=== PATIENT | female | born 1975 | race Caucasian/White ===

== ENCOUNTER 2016-11-14 11:53 | Observation (INO) ==
--- NOTE | 2016-11-14 11:58 | Emergency Department Note ---
Disposition Clinical Impression: Acute asthma exacerbation Disposition: Admitted As Inpatient Condition: Fair General Adult HPI - General Chief complaint: ED Shortness of Breath/Dyspnea Stated complaint: RINA, cough Time Seen by Provider: 11/14/16 11:57 - Related Data Home Medications Medication Instructions Recorded Confirmed Albuterol Neb [Proventil Neb] 2.5 mg IH QID 09/09/15 11/14/16 Albuterol Sulfate [Albuterol 2 puff IH Q4HR 09/09/15 11/14/16 Inhaler] Azelastine 0.1% Nasal [place] 1 spray NS BID 09/09/15 11/14/16 [Astelin] Bupropion HCl [Wellbutrin Xl] 150 mg PO QAM 09/09/15 11/14/16 Cetirizine HCl [Zyrtec] 10 mg PO HS 09/09/15 11/14/16 ClonazePAM [Klonopin] 0.5 mg PO 5XD PRN 09/09/15 11/14/16 Diltiazem HCl [Diltiazem 24Hr Cd] 120 mg PO QPM 09/09/15 11/14/16 Docusate [Colace] 100 mg PO QPM PRN 09/09/15 11/14/16 FLUoxetine HCl [Prozac] 80 mg PO QAM 09/09/15 11/14/16 Ferrous Sulfate 325 mg PO QPM 09/09/15 11/14/16 Fluticasone Propionate Nasal 50 mcg NS BID 09/09/15 11/14/16 [Flonase] Fluticasone/Salmeterol [Advair Hfa 2 puff IH BID 09/09/15 11/14/16 115-21 Mcg Inhaler] Furosemide [Lasix] 20 mg PO QAM 09/09/15 11/14/16 Indomethacin [Indocin] 50 mg PO TIDWM 09/09/15 11/14/16 Lisinopril [Zestril] 20 mg PO QAM 09/09/15 11/14/16 Montelukast [Singulair] 10 mg PO QPM 09/09/15 11/14/16 Tizanidine HCl [Zanaflex] 2 mg PO Q12H PRN 09/09/15 11/14/16 Valacyclovir [Valtrex] 500 mg PO QPM 09/09/15 11/14/16 Topiramate [Topamax] 50 mg PO BID 02/14/16 11/14/16 Pregabalin [Lyrica] 150 mg PO HS 05/13/16 11/14/16 SUMAtriptan Succinate [Imitrex] 100 mg PO AD PRN 05/13/16 11/14/16 l-Norgest/E.estradiol-E.estrad 1 tab PO DAILY 05/13/16 11/14/16 [Ashlyna 0.15-0.03-0.01 mg Tab] Ascorbic Acid [Vitamin C] 500 mg PO DAILY 11/14/16 11/14/16 Budesonide [Uceris] 9 mg PO DAILY 11/14/16 11/14/16 Cholecalciferol (Vitamin D3) 1,000 unit PO DAILY 11/14/16 11/14/16 [Vitamin D3] Magnesium Oxide [Mag-Ox] 400 mg PO BID 11/14/16 11/14/16 Metformin HCl [Metformin HCl ER] 500 mg PO BID 11/14/16 11/14/16 Pregabalin [Lyrica] 150 mg PO DAILY 11/14/16 11/14/16 Previous Rx's Medication Instructions Recorded Omeprazole [PriLOSEC] 40 mg PO DAILY #30 capsule. 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 - Social History Smoking Status: Never smoker Smokeless Tobacco Status: No Alcohol use: Reports: none Drug use: Reports: none Course Vital Signs Temperature 98.8 F 11/14/16 11:56 Pulse Rate 91 11/14/16 11:56 Respiratory Rate 20 11/14/16 11:56 Blood Pressure 137/87 11/14/16 11:56 O2 Sat by Pulse Oximetry 99 11/14/16 11:56 Temperature 98.8 F 11/14/16 11:56 Pulse Rate 101 11/14/16 14:00 Respiratory Rate 18 11/14/16 15:29 Blood Pressure 136/77 11/14/16 15:29 O2 Sat by Pulse Oximetry 97 11/14/16 14:00 Oxygen Delivery Oxygen Delivery Room Air Medical Decision Making - Lab Data Result diagrams: 11/14/16 13:02 11/14/16 13:02 Lab Results 11/14/16 11/14/16 11/14/16 Range/Units 12:16 12:30 13:02 WBC 16.6 H (4.3-11.1) K/mcL RBC 4.36 (3.82-4.97) M/mcL Hgb 13.5 (11.5-15.4) g/dL Hct 41.4 (35.3-44.9) % MCV 95.0 (83.0-100.0) fL MCH 31.0 (28.0-33.3) pg MCHC 32.6 (31.6-35.5) g/dL RDW 13.2 (11.5-14.5) % Plt Count 367 (140-400) K/mcL MPV 10.8 (9.4-12.4) fL Immature Gran % 0.4 (0-4) % Seg Neutrophils % 62.4 % Lymphocytes % 30.1 % Monocytes % 6.2 % Eosinophils % 0.5 % Basophils % 0.4 % Neutrophils # 10.3 H (1.6-8.9) K/mcL Lymphocytes # 5.0 H (0.6-4.6) K/mcL Monocytes # 1.0 (0.0-1.3) K/mcL Eosinophils # 0.1 (0.0-0.6) K/mcL Basophils # 0.1 (0.0-0.2) K/mcL Immature Plt Fraction 6.6 H (1.1-6.1) % ABG pH 7.47 H (7.32-7.45) pH Units ABG pCO2 28 L (35-45) mmHg ABG pO2 75 L (85-104) mmHg ABG HCO3 20.4 L (21-27) mEQ/L ABG Total CO2 21.3 (20-26) mEq/L ABG O2 Saturation 96 (95-98) % ABG Base Excess -2.0 (-2.0 to 3.0) mEq/L Blood Gas Modality RA Inspired O2 21 % Sodium (136-145) mEq/L Potassium (3.5-4.5) mEq/L Chloride (98-109) mEq/L Carbon Dioxide (19-29) mEq/L BUN (7-20) mg/dL Creatinine (0.57-1.11) mg/dL Est GFR ( Amer) (> 60) Est GFR (Non-Af Amer) (> 60) BUN/Creatinine Ratio (6-26) Glucose (70-99) mg/dL POC Glucose 79 (58-89) Calculated Osmolality (280-300) Calcium (8.6-10.8) mg/dL Urine Color (Yellow) Urine Clarity (Clear) Urine pH (5.0-8.0) pH Units Ur Specific [place] (1.010-1.025) Urine Protein (Neg-Trace) mg/dL Urine Glucose (UA) (Normal) mg/dL Urine Ketones (Negative) mg/dL Urine Blood (Negative) Urine Nitrite (Negative) Urine Bilirubin (Negative) Urine Urobilinogen (Normal) mg/dL Ur Leukocyte Esterase (Negative) Urine Microscopic RBC (0-3) per hpf Urine Microscopic WBC (0-3) per hpf Ur Squamous Epith Cells (None-Few) per lpf Urine Bacteria (None-Few) per hpf Hyaline Casts (None-Few) per lpf Ur Culture Indicated? (NO) 11/14/16 11/14/16 Range/Units 13:02 13:45 WBC (4.3-11.1) K/mcL RBC (3.82-4.97) M/mcL Hgb (11.5-15.4) g/dL Hct (35.3-44.9) % MCV (83.0-100.0) fL MCH (28.0-33.3) pg MCHC (31.6-35.5) g/dL RDW (11.5-14.5) % Plt Count (140-400) K/mcL MPV (9.4-12.4) fL Immature Gran % (0-4) % Seg Neutrophils % % Lymphocytes % % Monocytes % % Eosinophils % % Basophils % % Neutrophils # (1.6-8.9) K/mcL Lymphocytes # (0.6-4.6) K/mcL Monocytes # (0.0-1.3) K/mcL Eosinophils # (0.0-0.6) K/mcL Basophils # (0.0-0.2) K/mcL Immature Plt Fraction (1.1-6.1) % ABG pH (7.32-7.45) pH Units ABG pCO2 (35-45) mmHg ABG pO2 (85-104) mmHg ABG HCO3 (21-27) mEQ/L ABG Total CO2 (20-26) mEq/L ABG O2 Saturation (95-98) % ABG Base Excess (-2.0 to 3.0) mEq/L Blood Gas Modality Inspired O2 % Sodium 136 (136-145) mEq/L Potassium 3.6 (3.5-4.5) mEq/L Chloride 105 (98-109) mEq/L Carbon Dioxide 21 (19-29) mEq/L BUN 25 H (7-20) mg/dL Creatinine 1.06 (0.57-1.11) mg/dL Est GFR ( Amer) > 60 (> 60) Est GFR (Non-Af Amer) 57 L (> 60) BUN/Creatinine Ratio 24 (6-26) Glucose 72 (70-99) mg/dL POC Glucose (58-89) Calculated Osmolality 285 (280-300) Calcium 8.5 L (8.6-10.8) mg/dL Urine Color Yellow (Yellow) Urine Clarity Cloudy A (Clear) Urine pH 6.0 (5.0-8.0) pH Units Ur Specific [place] 1.027 H (1.010-1.025) Urine Protein Negative (Neg-Trace) mg/dL Urine Glucose (UA) Normal (Normal) mg/dL Urine Ketones 15 H (Negative) mg/dL Urine Blood Moderate H (Negative) Urine Nitrite Negative (Negative) Urine Bilirubin Negative (Negative) Urine Urobilinogen Normal (Normal) mg/dL Ur Leukocyte Esterase Small H (Negative) Urine Microscopic RBC 0-3 (0-3) per hpf Urine Microscopic WBC 5-15 H (0-3) per hpf Ur Squamous Epith Cells Many H (None-Few) per lpf Urine Bacteria None Seen (None-Few) per hpf Hyaline Casts None Seen (None-Few) per lpf Ur Culture Indicated? YES A (NO) Attestation Statement - Attestation Attestation: I examined this patient and my medical decision-making was reviewed with the VOCAL TEACHER/PA/Advanced Practice Nurse/Resident Physician. I agree with the documented findings, disposition and treatment plan as described except to the extent set forth below. [id number] time provided Patient presents with cough and dyspnea. She presents via EMS from home. No evidence of dyspnea or tachypnea on exam. Patient was recently seen in the emergency department approximately one week ago for similar symptoms
[2016-11-14] MEDS ORDERED: Ipratropium/Albuterol Neb 3 ML IH ONE ×2 (12:12→14:00)
--- NOTE | 2016-11-14 12:14 | Emergency Department Note ---
Disposition Clinical Impression: Acute asthma exacerbation Qualifiers: Asthma severity: unspecified severity Qualified Code(s): J45.901 - Unspecified asthma with (acute) exacerbation Disposition: Admitted As Inpatient Condition: Fair Referrals: Daniel Whitney Jr, MD [Primary Care Provider] - Forms: ED Satisfaction Letter Time of Disposition: 14:06 SOB HPI - General Chief Complaint: ED Shortness of Breath/Dyspnea Stated Complaint: RINA, cough Time Seen by Provider: 11/14/16 11:57 Source: patient Limitations: no limitations Nursing Notes Reviewed: Yes Vital Signs Reviewed: Yes - History of Present Illness Ms. Flanagan is a 41 year old female with history of diabetes, Crohns disease, arthritis, asthma, and chronic bronchitis who presents to the ED via EMS with complaint of troubles breathing. Patient reports increasing troubles catching her breath, some lower rib pain with deep inspiration, cough, and generalized fatigue that began about 2 weeks ago. Patient was seen on 11/08/16 in the ED and diagnosed with COPD and was sent home with steroids and antibiotics. Patient reports using steroids and inhalers without significant relief of symptoms. Patient unable to determine if worsening of breathing with exertion as she is very fatigued and staying in bed. Patient reports associated cough and chills. Reports coughing up increasing amounts of clear to light yellow mucus. Patient denies fevers, sweats, headaches, lightheadedness, abdominal pain, changes in bowels or bladder, weakness, or loss of sensation. Patient reports no history of smoking. Pt Subjective Complaint: shortness of breath, cough Onset (ago): day(s) Context: recent illness - Related Data Home Medications Medication Instructions Recorded Confirmed Albuterol Neb [Proventil Neb] 2.5 mg IH QID 09/09/15 05/19/16 Albuterol Sulfate [Albuterol 2 puff IH Q4HR 09/09/15 05/19/16 Inhaler] Azelastine 0.1% Nasal [place] 1 spray NS BID 09/09/15 05/19/16 [Astelin] Bupropion HCl [Wellbutrin Xl] 300 mg PO QAM 09/09/15 05/19/16 Cetirizine HCl [Zyrtec] 10 mg PO HS 09/09/15 05/19/16 ClonazePAM [Klonopin] 0.5 mg PO 5XD PRN 09/09/15 05/19/16 Diltiazem HCl [Diltiazem 24Hr Cd] 120 mg PO QPM 09/09/15 05/19/16 Docusate [Colace] 100 mg PO QPM PRN 09/09/15 05/19/16 FLUoxetine HCl [Prozac] 80 mg PO QAM 09/09/15 05/19/16 Ferrous Sulfate 325 mg PO QPM 09/09/15 05/19/16 Fluticasone Propionate Nasal 1 spray NS BID 09/09/15 05/19/16 [Flonase] Fluticasone/Salmeterol [Advair Hfa 2 puff IH BID 09/09/15 05/19/16 115-21 Mcg Inhaler] Furosemide [Lasix] 20 mg PO QAM 09/09/15 05/19/16 Indomethacin [Indocin] 50 mg PO TIDWM 09/09/15 05/19/16 Ketotifen Fumarate [Zaditor] 1 drop OP BID PRN 09/09/15 05/19/16 Lisinopril [Zestril] 20 mg PO QAM 09/09/15 05/19/16 Montelukast [Singulair] 10 mg PO QPM 09/09/15 05/19/16 Tizanidine HCl [Zanaflex] 2 mg PO Q12H PRN 09/09/15 05/19/16 Trazodone HCl [TraZODone] 100 mg PO 09/09/15 05/19/16 Valacyclovir [Valtrex] 500 mg PO QPM 09/09/15 05/19/16 Topiramate [Topamax] 50 mg PO BID 02/14/16 05/19/16 Pregabalin [Lyrica] 150 mg PO 05/13/16 05/19/16 SUMAtriptan Succinate [Imitrex] 100 mg PO AD PRN 05/13/16 05/19/16 l-Norgest/E.estradiol-E.estrad 1 each PO DAILY 05/13/16 05/19/16 [Ashlyna 0.15-0.03-0.01 mg Tab] Zolpidem Tartrate [Edluar] 10 mg SL 05/14/16 05/19/16 Previous Rx's Medication Instructions Recorded Omeprazole [PriLOSEC] 40 mg PO DAILY #30 capsule. 04/22/16 Ondansetron ODT [Zofran ODT] 4 mg SL Q6HR PRN #14 tab.rapdis 05/09/16 Sucralfate [Carafate] 1 gm PO QIDAC #20 tablet 05/09/16 Ciprofloxacin [Cipro] 500 mg PO BID 5 Days 05/15/16 Dicyclomine [Bentyl] 10 mg PO QID PRN #20 capsule 05/15/16 MetroNIDAZOLE [Flagyl] 500 mg PO TID 5 Days 05/15/16 Cyclobenzaprine [Flexeril] 10 mg PO TID PRN #90 tablet 05/20/16 OxyCODONE Immed Rel [Roxicodone 5 5 mg PO Q4HR #60 tablet 05/20/16 MG] Cephalexin 500 mg PO BID #14 tablet 10/10/16 OxyCODONE/APAP 5/325 [Percocet 1 each PO Q6HR PRN #6 tablet 10/10/16 5/325] Benzonatate [Tessalon] 100 mg PO TID PRN #21 capsule 11/08/16 Cefdinir [Omnicef] 300 mg PO BID #14 capsule 11/08/16 PredniSONE 40 mg PO DAILY #3 tablet 11/08/16 Allergies Allergy/AdvReac Type Severity Reaction Status Date / Time gabapentin Allergy Swelling Verified 11/14/16 12:10 of Lip/Tongue/Throat Constitutional: Reports: as per HPI, chills. Denies: fever, weakness, night sweats Eyes: Reports: as per HPI ENT ED: Reports: as per HPI Cardiovascular: Reports: as per HPI. Denies: chest pain Respiratory: Reports: as per HPI, cough, dyspnea. Denies: wheezes Gastrointestinal: Reports: as per HPI. Denies: abdominal pain, nausea, vomiting , diarrhea, constipation Genitourinary: Reports: as per HPI. Denies: dysuria, frequency Musculoskeletal: Reports: as per HPI. Denies: back pain, neck pain Integumentary: Reports: as per HPI. Denies: rash Neurological: Reports: as per HPI. 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 Absent: lymphadenopathy - Chest Chest inspection: Present: normal inspection, symmetric chest wall rise, tenderness (with palpation) - Respiratory Respiratory exam: Present: normal lung sounds bilaterally, wheezes, prolonged expiratory phase - Cardiovascular Cardiovascular exam: Present: regular rate, normal rhythm, normal heart sounds, +S1, +S2 - Abdominal Exam Abdominal exam: Present: soft, Non-Tender, normal bowel sounds - Extremities Exam Extremities exam: Present: normal inspection, full ROM, normal capillary refill. Absent: tenderness, pedal edema, joint swelling, calf tenderness - Back Exam Back exam: Present: normal inspection, full ROM. Absent: tenderness - Neurological Exam Neurological exam: Present: alert, oriented X3 - Psychiatric Psychiatric exam: Present: normal affect, normal mood - Skin Skin exam: Present: warm, dry, intact, normal color. Absent: rash, cyanosis, diaphoresis, erythema, pallor Course Course Narrative: Based on history and exam, suspect continued troubles breathing secondary to chronic bronchitis and uncontrolled with at home inhaled medications. Will get ABG due to increased somnolence, possible hypercapnia. - Reevaluation(s) Reevaluation #1: Patient reports continued chest tightness reproducible pain with palpation and troubles breathing. Patient reports no improvement after duoneb treatment. Time: 13:59 - Consultations Consultation #1: Spoke with Dr. Odom, will accept patient for acute asthma exacerbation vs chronic bronchitis. Time: 14:05 Vital Signs Temperature 98.8 F 11/14/16 11:56 Pulse Rate 91 11/14/16 11:56 Respiratory Rate 20 11/14/16 11:56 Blood Pressure 137/87 11/14/16 11:56 O2 Sat by Pulse Oximetry 99 11/14/16 11:56 Temperature 98.8 F 11/14/16 11:56 Pulse Rate 91 11/14/16 11:56 Respiratory Rate 16 11/14/16 12:34 Blood Pressure 137/87 11/14/16 11:56 O2 Sat by Pulse Oximetry 98 11/14/16 12:34 Oxygen Delivery Oxygen Delivery Room Air Shortness of Breath/Dyspnea - MDM Narrative Medical decision making narrative: Patient complaints of worsening troubles breathing and cough with associated somnolence. Labs reveal respiratory alkalosis. No improvement with duoneb treatments. Leukocytosis. Likely acute asthma exacerbation vs acute exacerbation of chronic bronchitis. Will admit for further evaluation and treatment. - Lab Data Lab results reviewed: Yes I reviewed the patient's lab results. Result diagrams: 11/14/16 13:02 11/14/16 13:02 Lab Results 11/14/16 11/14/16 11/14/16 Range/Units 12:16 12:30 13:02 WBC 16.6 H (4.3-11.1) K/mcL RBC 4.36 (3.82-4.97) M/mcL Hgb 13.5 (11.5-15.4) g/dL Hct 41.4 (35.3-44.9) % MCV 95.0 (83.0-100.0) fL MCH 31.0 (28.0-33.3) pg MCHC 32.6 (31.6-35.5) g/dL RDW 13.2 (11.5-14.5) % Plt Count 367 (140-400) K/mcL MPV 10.8 (9.4-12.4) fL Immature Gran % 0.4 (0-4) % Seg Neutrophils % 62.4 % Lymphocytes % 30.1 % Monocytes % 6.2 % Eosinophils % 0.5 % Basophils % 0.4 % Neutrophils # 10.3 H (1.6-8.9) K/mcL Lymphocytes # 5.0 H (0.6-4.6) K/mcL Monocytes # 1.0 (0.0-1.3) K/mcL Eosinophils # 0.1 (0.0-0.6) K/mcL Basophils # 0.1 (0.0-0.2) K/mcL Immature Plt Fraction 6.6 H (1.1-6.1) % ABG pH 7.47 H (7.32-7.45) pH Units ABG pCO2 28 L (35-45) mmHg ABG pO2 75 L (85-104) mmHg ABG HCO3 20.4 L (21-27) mEQ/L ABG Total CO2 21.3 (20-26) mEq/L ABG O2 Saturation 96 (95-98) % ABG Base Excess -2.0 (-2.0 to 3.0) mEq/L Blood Gas Modality RA Inspired O2 21 % Sodium (136-145) mEq/L Potassium (3.5-4.5) mEq/L Chloride (98-109) mEq/L Carbon Dioxide (19-29) mEq/L BUN (7-20) mg/dL Creatinine (0.57-1.11) mg/dL Est GFR ( Amer) (> 60) Est GFR (Non-Af Amer) (> 60) BUN/Creatinine Ratio (6-26) Glucose (70-99) mg/dL POC Glucose 79 (58-89) Calculated Osmolality (280-300) Calcium (8.6-10.8) mg/dL 11/14/16 Range/Units 13:02 WBC (4.3-11.1) K/mcL RBC (3.82-4.97) M/mcL Hgb (11.5-15.4) g/dL Hct (35.3-44.9) % MCV (83.0-100.0) fL MCH (28.0-33.3) pg MCHC (31.6-35.5) g/dL RDW (11.5-14.5) % Plt Count (140-400) K/mcL MPV (9.4-12.4) fL Immature Gran % (0-4) % Seg Neutrophils % % Lymphocytes % % Monocytes % % Eosinophils % % Basophils % % Neutrophils # (1.6-8.9) K/mcL Lymphocytes # (0.6-4.6) K/mcL Monocytes # (0.0-1.3) K/mcL Eosinophils # (0.0-0.6) K/mcL Basophils # (0.0-0.2) K/mcL Immature Plt Fraction (1.1-6.1) % ABG pH (7.32-7.45) pH Units ABG pCO2 (35-45) mmHg ABG pO2 (85-104) mmHg ABG HCO3 (21-27) mEQ/L ABG Total CO2 (20-26) mEq/L ABG O2 Saturation (95-98) % ABG Base Excess (-2.0 to 3.0) mEq/L Blood Gas Modality Inspired O2 % Sodium 136 (136-145) mEq/L Potassium 3.6 (3.5-4.5) mEq/L Chloride 105 (98-109) mEq/L Carbon Dioxide 21 (19-29) mEq/L BUN 25 H (7-20) mg/dL Creatinine 1.06 (0.57-1.11) mg/dL Est GFR ( Amer) > 60 (> 60) Est GFR (Non-Af Amer) 57 L (> 60) BUN/Creatinine Ratio 24 (6-26) Glucose 72 (70-99) mg/dL POC Glucose (58-89) Calculated Osmolality 285 (280-300) Calcium 8.5 L (8.6-10.8) mg/dL - Radiology Data Radiology results reviewed: Yes I reviewed the patient's radiology results. Chest X-Ray 11/14/16 12:12 IMPRESSION: No acute cardiopulmonary process. D/ / 11/14/2016 13:02:16 Scott Shay MD / Gisel Banda Interpreting Provider: Scott Shay MD - EKG Data EKG attestation: Yes I reviewed and interpreted this EKG. EKG results narrative: Normal sinus rhythm, rate 79bpm, pr int 144ms, QRS dur 90 ms, QT/QTc 382/417, P- R-T axes [address] elevations or depressions or t wave inversions. No changes from prior comparison.
[2016-11-14 12:43] LABS: ABG HCO3 20.4 mEQ/L (21-27); ABG Oxygen Saturation 96 % (95-98); ABG PCO2 28 mmHg (35-45); ABG PH 7.47 pH Units (7.32-7.45); ABG PO2 75 mmHg (85-104); ABG TCO2 21.3 mEq/L (20-26); Blood Gas FiO2 21 %
[2016-11-14 13:08] LABS: Basophils # 0.1 K/mcL (0.0-0.2); Basophils % 0.4 %; Eosinophils # 0.1 K/mcL (0.0-0.6); Eosinophils % 0.5 %; Hematocrit 41.4 % (35.3-44.9); Hemoglobin 13.5 g/dL (11.5-15.4); Immature Granulocytes % 0.4 % (0-4); Immature Platelets 6.6 % (1.1-6.1); Lymphocytes % 30.1 %; Mean Corpuscular HGB Conc 32.6 g/dL (31.6-35.5); Mean Platelet Volume 10.8 fL (9.4-12.4); Monocytes % 6.2 %; Neutrophils # 10.3 K/mcL (1.6-8.9); Platelet Count 367 K/mcL (140-400); Red Blood Count 4.36 M/mcL (3.82-4.97); Red Cell Distribution Width 13.2 % (11.5-14.5); Segmented Neutrophils % 62.4 %
[2016-11-14 13:19] LABS: BUN/Creatinine Ratio 24 (6-26); Blood Urea Nitrogen 25 mg/dL (7-20); Calcium 8.5 mg/dL (8.6-10.8); Carbon Dioxide 21 mEq/L (19-29); Chloride 105 mEq/L (98-109); Glucose 72 mg/dL (70-99); Osmolality,Calculated 285 (280-300); Potassium 3.6 mEq/L (3.5-4.5); Sodium 136 mEq/L (136-145); eGFR For African Americans > 60 (> 60); eGFR For Non-African Americans 57 (> 60)
[2016-11-14 14:10] LABS: Bilirubin,Urine Negative (Negative); Blood,Urine Moderate (Negative); Clarity,Urine Cloudy (Clear); Color,Urine Yellow (Yellow); Glucose,Urine (UA) Normal (Normal); Ketones,Urine 15 mg/dL (Negative); Leukocyte Esterase,Urine Small (Negative); Nitrite,Urine Negative (Negative); Protein,Urine Negative (Neg-Trace); Specific Gravity,Urine 1.027 (1.010-1.025); Urobilinogen,Urine Normal (Normal)
[2016-11-14 14:13] LABS: Bacteria,Urine None Seen per hpf (None-Few); Hyaline Casts,Urine None Seen per lpf (None-Few); RBC,Urine 0-3 per hpf (0-3); Squamous Epithelial Cell,Urine Many per lpf (None-Few)
[2016-11-14] MEDS ORDERED: methylPREDNISolone 125 MG/2 ML VIAL IVP ONE (14:23)
--- NOTE | 2016-11-14 15:49 | Internal Med History&Physical ---
Date of Encounter: 11/14/16 Time of Encounter: 14:45 Internal Medicine - H&P: HPI Chief complaint: SOB Admitted From: Emergency Dept Plans for Post Hospital Care: Home History of present illness: Ms. Flanagan is a 41 year old female with medical history significant for asthma, and chronic bronchitis DM2 and morbid obesity presents with SOB, cough, chest wall pain and generalized fatigu of 2 weeks duration. She was evaluated in the ED a couple of days ago and discharged on antiboitics and a course of prednisone , she has not really improved. SOB and chest pain even at rest. Cough is intermittently productive of clear to light yellow sputum. She reports lower rib pain that is worse with deep breathing and coughing. She denies fevers, sweats, headaches, hemoptysis, lightheadedness, abdominal pain, GI, neurological or urinary symptoms. No leg swelling or leg cramps. No long distance travel. No sick contacts. No history of smoking, though she is diagnosed with chronic bronchitis. No PND, no orthopnea or leg swelling. No recent surgery or period of prolonged immobilization. No historry of CHF, DVT or PE. She is FULL CODE as per discussion, she nominates her , Aldo Flanagan ([phone]) as her NOK/POA. ROS: A 10 point ROS was performed. see HPI. Positives and relevant negatives are detailed, system-symptom not mention assumed negative unless otherwise stated. Family history: Father: CAD/NC s/p CABG, HTN, mother: lung abd breast cancer, HTN. Vital Signs Temperature 98.8 F 11/14/16 11:56 Pulse Rate 91 11/14/16 11:56 Respiratory Rate 20 11/14/16 11:56 Blood Pressure 137/87 11/14/16 11:56 O2 Sat by Pulse Oximetry 99 11/14/16 11:56 Temperature 98.8 F 11/14/16 11:56 Pulse Rate 91 11/14/16 11:56 Respiratory Rate 16 11/14/16 12:34 Blood Pressure 137/87 11/14/16 11:56 O2 Sat by Pulse Oximetry 98 11/14/16 12:34 Not in distress, not ill or toxic looking. lethargic. Not pale, anicteric, afebrile, acyanotic. Moist mucosa, no JVD HEENT: No JVD, no cervical lymphadenopathy, Chest : CTAB Heart: RRR, HS1/2, no m/r/g. Abdomen: soft, non-tender, no guarding, no rebound, no masses, BS+ : No flank tenderness, no CVA tenderness, no suprapubic tenderness. REGIONAL PLANNER: AAO x 3, no focal neurological deficits. Skin: no active skin lesion Extremities: No pedal edema, normal pedal pulses, no calf tenderness. Lab Results 11/14/16 11/14/16 11/14/16 Range/Units 12:16 12:30 13:02 WBC 16.6 H (4.3-11.1) K/mcL RBC 4.36 (3.82-4.97) M/mcL Hgb 13.5 (11.5-15.4) g/dL Hct 41.4 (35.3-44.9) % MCV 95.0 (83.0-100.0) fL MCH 31.0 (28.0-33.3) pg MCHC 32.6 (31.6-35.5) g/dL RDW 13.2 (11.5-14.5) % Plt Count 367 (140-400) K/mcL MPV 10.8 (9.4-12.4) fL Immature Gran % 0.4 (0-4) % Seg Neutrophils % 62.4 % Lymphocytes % 30.1 % Monocytes % 6.2 % Eosinophils % 0.5 % Basophils % 0.4 % Neutrophils # 10.3 H (1.6-8.9) K/mcL Lymphocytes # 5.0 H (0.6-4.6) K/mcL Monocytes # 1.0 (0.0-1.3) K/mcL Eosinophils # 0.1 (0.0-0.6) K/mcL Basophils # 0.1 (0.0-0.2) K/mcL Immature Plt Fraction 6.6 H (1.1-6.1) % ABG pH 7.47 H (7.32-7.45) pH Units ABG pCO2 28 L (35-45) mmHg ABG pO2 75 L (85-104) mmHg ABG HCO3 20.4 L (21-27) mEQ/L ABG Total CO2 21.3 (20-26) mEq/L ABG O2 Saturation 96 (95-98) % ABG Base Excess -2.0 (-2.0 to 3.0) mEq/L Blood Gas Modality RA Inspired O2 21 % Sodium (136-145) mEq/L Potassium (3.5-4.5) mEq/L Chloride (98-109) mEq/L Carbon Dioxide (19-29) mEq/L BUN (7-20) mg/dL Creatinine (0.57-1.11) mg/dL Est GFR ( Amer) (> 60) Est GFR (Non-Af Amer) (> 60) BUN/Creatinine Ratio (6-26) Glucose (70-99) mg/dL POC Glucose 79 (58-89) Calculated Osmolality (280-300) Calcium (8.6-10.8) mg/dL 11/14/16 Range/Units 13:02 WBC (4.3-11.1) K/mcL RBC (3.82-4.97) M/mcL Hgb (11.5-15.4) g/dL Hct (35.3-44.9) % MCV (83.0-100.0) fL MCH (28.0-33.3) pg MCHC (31.6-35.5) g/dL RDW (11.5-14.5) % Plt Count (140-400) K/mcL MPV (9.4-12.4) fL Immature Gran % (0-4) % Seg Neutrophils % % Lymphocytes % % Monocytes % % Eosinophils % % Basophils % % Neutrophils # (1.6-8.9) K/mcL Lymphocytes # (0.6-4.6) K/mcL Monocytes # (0.0-1.3) K/mcL Eosinophils # (0.0-0.6) K/mcL Basophils # (0.0-0.2) K/mcL Immature Plt Fraction (1.1-6.1) % ABG pH (7.32-7.45) pH Units ABG pCO2 (35-45) mmHg ABG pO2 (85-104) mmHg ABG HCO3 (21-27) mEQ/L ABG Total CO2 (20-26) mEq/L ABG O2 Saturation (95-98) % ABG Base Excess (-2.0 to 3.0) mEq/L Blood Gas Modality Inspired O2 % Sodium 136 (136-145) mEq/L Potassium 3.6 (3.5-4.5) mEq/L Chloride 105 (98-109) mEq/L Carbon Dioxide 21 (19-29) mEq/L BUN 25 H (7-20) mg/dL Creatinine 1.06 (0.57-1.11) mg/dL Est GFR ( Amer) > 60 (> 60) Est GFR (Non-Af Amer) 57 L (> 60) BUN/Creatinine Ratio 24 (6-26) Glucose 72 (70-99) mg/dL POC Glucose (58-89) Calculated Osmolality 285 (280-300) Calcium 8.5 L (8.6-10.8) mg/dL Chest X-Ray 11/14/16 12:12 No acute cardiopulmonary process. EKG: NSR: normal axis and interval, no ST-T segment or T wave anomaly. No change from prior. IMP SOB despite a clear chest on auscultation, though history suggest acute on chronic bronchitis, I will evaluate for CHF and pulmonary embolism. Failed out- patient treatment. Chronic morbidities COPD Asthma Morbid obesity DM2 Arthritis Croh's disease/colitis, without acute flare. PLAN Admit Duoneb QIDR, albuterol nebs Q4H PRN IV Solumedrol 60 MG q8h Symbicort 160/4.5 2 puffs BID No indication for antiboitics at this time VQ scan and 2D ECHO Insulin, moderate dose sliding scale QAC/HS Continue other medications of chronic morbidities Lovenox 40 mg SC for DVT prophylaxis Omeprazole 20mg po QD for GI prophylaxis I discussed my assessment with the patient, father was at bedside, they verbalized understanding and are agreeable to admission, having failed out- patient treatment. Past Med Surg Social Fam HX - Past Medical History Medical history: arthritis, asthma, COPD (CHRONIC bronchitis), diabetes, GERD, hypertension, migraine, other (Crohns' colitis, obesity) Psychiatric history: depression - Past Surgical History Surgical History: knee replacement, other (carpal tunnel, ulver tunnel surgery, back surgery) - Social History Smoking Status: Never smoker Smokeless Tobacco Status: No Alcohol use: none Drug use: none - Family History Father Hx Family Cardiac Disorders: Yes (CABG at age 54) Maternal Hx Family Cancer: Yes (Maternal aunt colon cancer age 30) Internal Medicine - H&P: Meds Albuterol Neb [Proventil Neb] 2.5 mg IH QID 09/09/15 [History] Albuterol Sulfate [Albuterol Inhaler] 2 puff IH Q4HR 09/09/15 [History] Azelastine 0.1% Nasal [place] [Astelin] 1 spray NS BID 09/09/15 [History] Bupropion HCl [Wellbutrin Xl] 150 mg PO QAM 09/09/15 [History] Cetirizine HCl [Zyrtec] 10 mg PO HS 09/09/15 [History] ClonazePAM [Klonopin] 0.5 mg PO 5XD PRN 09/09/15 [History] Diltiazem HCl [Diltiazem 24Hr Cd] 120 mg PO QPM 09/09/15 [History] Docusate [Colace] 100 mg PO QPM PRN 09/09/15 [History] FLUoxetine HCl [Prozac] 80 mg PO QAM 09/09/15 [History] Ferrous Sulfate 325 mg PO QPM 09/09/15 [History] Fluticasone Propionate Nasal [Flonase] 50 mcg NS BID 09/09/15 [History] Fluticasone/Salmeterol [Advair Hfa 115-21 Mcg Inhaler] 2 puff IH BID 09/09/15 [ History] Furosemide [Lasix] 20 mg PO QAM 09/09/15 [History] Indomethacin [Indocin] 50 mg PO TIDWM 09/09/15 [History] Lisinopril [Zestril] 20 mg PO QAM 09/09/15 [History] Montelukast [Singulair] 10 mg PO QPM 09/09/15 [History] Tizanidine HCl [Zanaflex] 2 mg PO Q12H PRN 09/09/15 [History] Valacyclovir [Valtrex] 500 mg PO QPM 09/09/15 [History] Topiramate [Topamax] 50 mg PO BID 02/14/16 [History] Omeprazole [PriLOSEC] 40 mg PO DAILY #30 capsule. 04/22/16 [Rx] Ondansetron ODT [Zofran ODT] 4 mg SL Q6HR PRN #14 tab.laurel 08/28/16 [Rx] Sucralfate [Carafate] 1 gm PO QIDAC #20 tablet 05/09/16 [Rx] Pregabalin [Lyrica] 150 mg PO HS 05/13/16 [History] SUMAtriptan Succinate [Imitrex] 100 mg PO AD PRN 05/13/16 [History] l-Norgest/E.estradiol-E.estrad [Ashlyna 0.15-0.03-0.01 mg Tab] 1 tab PO DAILY [History] Dicyclomine [Bentyl] 10 mg PO QID PRN #20 capsule 05/15/16 [Rx] Ascorbic Acid [Vitamin C] 500 mg PO DAILY 11/14/16 [History] Budesonide [Uceris] 9 mg PO DAILY 11/14/16 [History] Cholecalciferol (Vitamin D3) [Vitamin D3] 1,000 unit PO DAILY 11/14/16 [History] Magnesium Oxide [Mag-Ox] 400 mg PO BID 11/14/16 [History] Metformin HCl [Metformin HCl ER] 500 mg PO BID 11/14/16 [History] Pregabalin [Lyrica] 150 mg PO DAILY 11/14/16 [History] Allergies gabapentin Allergy (Verified 11/14/16 12:10) Swelling of Lip/Tongue/Throat All Systems PM: A 10-system review of systems was performed and is negative for pertinent findings except as documented above in the HPI. - Constitutional Vitals: Temp Pulse Resp BP Pulse Ox 98.8 F 101 18 136/77 97 11/14/16 11:56 11/14/16 14:00 11/14/16 15:29 11/14/16 15:29 11/14/16 14:00 Internal Med - H&P Results - Labs CBC & Chem 7: 11/14/16 13:02 11/14/16 13:02
[2016-11-14] MEDS ORDERED: Albuterol 2.5 MG/3 ML NEBULIZER IH PRN (15:57)
[2016-11-14] MEDS ORDERED: Acetaminophen 325 MG TABLET PO PRN (16:01)
[2016-11-14] MEDS ORDERED: Naloxone 0.4 MG/ML INJ IVP PRN (16:01)
[2016-11-14] MEDS ORDERED: *HR* Dextrose 50 % in Water (Syg) 50 ML SYRINGE IVP PRN (16:06)
[2016-11-14] MEDS ORDERED: Dextrose Gel 15 GM PO PRN ×2 (16:06)
[2016-11-14] MEDS ORDERED: D5% in Water 1,000 ML IV PRN (16:06)
[2016-11-14] MEDS: Ipratropium/Albuterol Neb 3 ML IH SCH (16:56)
[2016-11-14] MEDS: Insulin LISPRO 300 UNITS/3 ML VIAL SQ SCH (17:31)
[2016-11-14] MEDS: methylPREDNISolone 125 MG/2 ML VIAL IVP SCH (17:37)
[2016-11-14] MEDS ORDERED: Insulin LISPRO 300 UNITS/3 ML VIAL SQ SCH (21:00)
[2016-11-15] MEDS: Budesonide/Formoterol 80/4.5 MDI IH SCH ×2 (00:01→10:30)
[2016-11-15] MEDS: Ipratropium/Albuterol Neb 3 ML IH SCH ×3 (00:01→10:30)
[2016-11-15] MEDS: methylPREDNISolone 125 MG/2 ML VIAL IVP SCH ×2 (00:10→07:46)
[2016-11-15] MEDS ORDERED: Ketorolac 30 MG/ML VIAL IVP PRN (04:11)
[2016-11-15] MEDS ORDERED: Ketorolac 30 MG/ML VIAL IVP ONE (04:11)
[2016-11-15] MEDS ORDERED: *HR* Enoxaparin 40 MG/0.4 ML SYRINGE SQ SCH (06:00)
[2016-11-15] MEDS: Insulin LISPRO 300 UNITS/3 ML VIAL SQ SCH ×2 (07:46→12:01)
[2016-11-15] MEDS ORDERED: Perflutren Lipid Microsphere 1.3 ML in 0.9 % Sodium Chloride 8.7 ML IVP ONE (08:38)
[2016-11-15] MEDS ORDERED: Perflutren Lipid Microsphere 2 ML VIAL ONE (08:39)
[2016-11-15] MEDS ORDERED: tiZANidine 4 MG TABLET PO PRN (09:10)
[2016-11-15] MEDS ORDERED: clonazePAM 0.5 MG TABLET PO PRN (09:10)
[2016-11-15] MEDS ORDERED: SUMAtriptan succinate 50 MG TABLET PO PRN (09:10)
[2016-11-15] MEDS ORDERED: FLUoxetine 20 MG CAPSULE PO SCH (09:15)
[2016-11-15] MEDS ORDERED: predniSONE 20 MG TABLET PO SCH (09:15)
[2016-11-15] MEDS ORDERED: Furosemide 20 MG TABLET PO SCH (09:15)
[2016-11-15] MEDS ORDERED: Pregabalin 75 MG CAPSULE PO SCH ×2 (09:15→21:00)
[2016-11-15] MEDS ORDERED: Magnesium Oxide 400 MG TABLET PO SCH (09:15)
[2016-11-15] MEDS ORDERED: BuPROPion XL (24 HR) 150 MG TABLET PO SCH (09:15)
[2016-11-15] MEDS ORDERED: E ESTRADIOL E ESTRAD PO SCH (09:15)
[2016-11-15] MEDS ORDERED: Fluticasone Propionate Nasal 50 MCG/SPRAY BOTTLE NS SCH (09:15)
[2016-11-15] MEDS ORDERED: Lisinopril 20 MG TABLET PO SCH (09:15)
[2016-11-15] MEDS ORDERED: Topiramate 25 MG TABLET PO SCH (09:15)
[2016-11-15] MEDS ORDERED: NORGEST PO SCH (09:15)
--- NOTE | 2016-11-15 09:56 | ECHO - Doppler Report ---
Echo with Imaging Enhancement Agent Name: Meagan Flanagan Date of Study: 11/15/2016 Date: 1975 Ht: 65.0 in Medical Record#: [id number] Age: 41 Wt: 307.0 lb Gender: Female BSA: 2.37 Order #: [id number] Location: [facility] Room #: 3B48 Reading Physician: Lilia Linares DO Float Operator: Marko Matos RN Ordering Physician: Mane Carrion MD Primary Physician: Daniel Whitney MD Indications: Shortness of breath Impressions: LVEF 65%. Normal left ventricular size and systolic function. There is evidence of mild diastolic dysfunction of the left ventricle. Normal right ventricular size and function. No significant valvular dysfunction. No pulmonary hypertension. Left Ventricular Wall Motion: Rest Echo Findings All wall segments showed normal motion. Findings: Study Quality * Technically adequate exam. ECG Findings * Normal sinus rhythm. Left Ventricle * Normal LV chamber size, wall thickness and function. * Mild left ventricular diastolic dysfunction. * LVEF 65%. * Definity echo contrast was used. Left Atrium * Normal left atrial size. Mitral Valve * Normal mitral valve structure. * No mitral stenosis. * Trace mitral regurgitation. Aortic Valve * Aortic valve not well visualized. * No aortic stenosis. * Trace aortic regurgitation. Tricuspid Valve * Tricuspid valve not well visualized. * No tricuspid regurgitation. * Estimated RA pressure is 3 mmHg. * Estimated RVSP is 18 mmHg. * No pulmonary hypertension. Pulmonic Valve * Pulmonic valve is not well visualized. * No pulmonic stenosis. * Trace pulmonic regurgitation. Pulmonary Artery * Pulmonary artery not well visualized. Right Ventricle * Normal right ventricular structure and function. Right Atrium * Normal right atrial size. Interatrial Septum * Interatrial septum not well evaluated. IVC * The IVC is not dilated. Pericardium * There is no pericardial effusion present. Aorta * Normally sized aortic root. History Hypertension Diabetes Family History of CAD 09/10/2015 a Previous Echo was performed. Contrast: Definity 1.3 ml in 8.7 ml of saline 2 ml. Measurements: BP: 143/ 77 2D Normal Values IVSd: 1.10 cm 0.6 - 1.0 cm LVIDd: 4.20 cm 3.7 - 5.6 cm LVPWd: 1.10 cm 0.6 - 1.1 cm LVIDs: 2.70 cm 1.5 - 3.6 cm LA: 4.00 cm 2.0 - 4.0cm %FS: 35.70 cm >25 % LVOT Diam: 2.00 cm LA volume: 66 Mitral Valve Peak E:.64 m/sec Peak A:.81 m/sec E/A Ratio:0.8 Peak E' Lat Armin:12.1 cm/s Peak E' Med Armin:9.16 cm/s E/E' Lat Ratio:5.2 E/E' Med Ratio:6.9 Aortic Valve AI pressure Half-time: 507.00 msec Tricuspid Valve TV Regurg Peak Grad: 15.00mmHg TV Regurg Peak Armin: 1.94m/sec Updated by Lilia Linares on 11/15/2016 9:51:08 AM electronically signed on 11/15/2016 9:52:30 AM with status of Final Wall Motion [place]: 1=Normal, 2=Hypokinesis, 3=Akinesis, 4=Dyskinesis, 5=Aneurysmal, 6=Hyperkinetic, X=Not Visualized (Blank)=Missing
[2016-11-15] MEDS ORDERED: Ondansetron ODT 4 MG TAB.RAPDIS SL PRN (10:57)
[2016-11-15] MEDS ORDERED: BuPROPion XL (24 HR) 150 MG TABLET PO ONE ×2 (11:30→12:45)
[2016-11-15] MEDS ORDERED: Sucralfate 1 GM TABLET PO SCH (11:30)
[2016-11-15 11:35] VITALS: BP 104/58
[2016-11-15] MEDS ORDERED: Indomethacin 25 MG CAPSULE PO SCH (12:00)
--- NOTE | 2016-11-15 13:46 | Discharge Summary ---
Date of Encounter: 11/15/16 Time of Encounter: 13:15 - Discharge Diagnosis (1) Asthma Priority: Secondary Status: Chronic Comments: Patient denied shortness of breath above her normal day of discharge. She tolerated room air well. She also denied dyspnea on exertion. Qualifiers: Asthma severity: mild intermittent Asthma complication type: uncomplicated Qualified Code(s): J45.20 - Mild intermittent asthma, uncomplicated (2) Chest pain Priority: Primary Status: Resolved Comments: patient has denied chest pain since admission other than when she is coughing. Reproducible with palpation. Chest x-ray negative. Low suspicion for ACS. (3) Abnormal urinalysis Priority: Primary Status: Ruled-out Comments: Patient denied dysuria, urine culture negative (4) Inflammatory bowel disease Priority: Secondary Status: Chronic Comments: no acute flare up. Follow-up outpatient. Patient was able to tolerate a regular diet well admitted (5) Diabetes type 2, controlled Priority: Secondary Status: Chronic Comments: Controlled with a recent A1c of 5.8%. Recommend continued follow-up outpatient Qualifiers: Diabetes mellitus complication status: without complication Diabetes mellitus mcfp insulin use: without mcfp use Qualified Code(s): E11.9 - Type 2 diabetes mellitus without complications (6) GERD (gastroesophageal reflux disease) Priority: Secondary Status: Chronic Comments: denies current sx- followup outpatient Qualifiers: Esophagitis presence: esophagitis presence not specified Qualified Code(s) : K21.9 - Gastro-esophageal reflux disease without esophagitis (7) JUAN on CPAP Priority: Secondary Status: Chronic (8) Morbid obesity with BMI of 50.0-59.9, adult Priority: Secondary Status: Chronic - Discharge Medications Prescriptions: Levofloxacin 750 mg PO DAILY #5 tablet PredniSONE 40 mg PO DAILY #10 tablet Home Medications: Albuterol Neb [Proventil Neb] 2.5 mg IH QID 09/09/15 [History] Albuterol Sulfate [Albuterol Inhaler] 2 puff IH Q4HR 09/09/15 [History] Azelastine 0.1% Nasal [place] [Astelin] 1 spray NS BID 09/09/15 [History] Bupropion HCl [Wellbutrin Xl] 450 mg PO QAM 09/09/15 [History] Cetirizine HCl [Zyrtec] 10 mg PO HS 09/09/15 [History] ClonazePAM [Klonopin] 0.5 mg PO 5XD PRN 09/09/15 [History] Diltiazem HCl [Diltiazem 24Hr Cd] 120 mg PO QPM 09/09/15 [History] Docusate [Colace] 100 mg PO QPM PRN 09/09/15 [History] FLUoxetine HCl [Prozac] 80 mg PO QAM 09/09/15 [History] Ferrous Sulfate 325 mg PO QPM 09/09/15 [History] Fluticasone Propionate Nasal [Flonase] 50 mcg NS BID 09/09/15 [History] Fluticasone/Salmeterol [Advair Hfa 115-21 Mcg Inhaler] 2 puff IH BID 09/09/15 [ History] Furosemide [Lasix] 20 mg PO QAM 09/09/15 [History] Indomethacin [Indocin] 50 mg PO TIDWM 09/09/15 [History] Lisinopril [Zestril] 20 mg PO QAM 09/09/15 [History] Montelukast [Singulair] 10 mg PO QPM 09/09/15 [History] Tizanidine HCl [Zanaflex] 2 mg PO Q12H PRN 09/09/15 [History] Valacyclovir [Valtrex] 500 mg PO QPM 09/09/15 [History] Topiramate [Topamax] 50 mg PO BID 02/14/16 [History] Omeprazole [PriLOSEC] 40 mg PO DAILY #30 capsule. 04/22/16 [Rx] Ondansetron ODT [Zofran ODT] 4 mg SL Q6HR PRN #14 tab.rapdis 05/09/16 [Rx] Sucralfate [Carafate] 1 gm PO QIDAC #20 tablet 05/09/16 [Rx] SUMAtriptan Succinate [Imitrex] 100 mg PO AD PRN 05/13/16 [History] l-Norgest/E.estradiol-E.estrad [Ashlyna 0.15-0.03-0.01 mg Tab] 1 tab PO DAILY [History] Dicyclomine [Bentyl] 10 mg PO QID PRN #20 capsule 05/15/16 [Rx] Ascorbic Acid [Vitamin C] 500 mg PO DAILY 11/14/16 [History] Budesonide [Uceris] 9 mg PO DAILY 11/14/16 [History] Cholecalciferol (Vitamin D3) [Vitamin D3] 1,000 unit PO DAILY 11/14/16 [History] Magnesium Oxide [Mag-Ox] 400 mg PO BID 11/14/16 [History] Metformin HCl [Metformin HCl ER] 500 mg PO BID 11/14/16 [History] Pregabalin [Lyrica] 150 mg PO DAILY 11/14/16 [History] Levofloxacin 750 mg PO DAILY #5 tablet 11/15/16 [Rx] PredniSONE 40 mg PO DAILY #10 tablet 11/15/16 [Rx] Allergies/Adverse Reactions: Allergies gabapentin Allergy (Verified 11/14/16 12:10) Swelling of Lip/Tongue/Throat Date of admission: 11/14/16 16:54 Primary care physician: Daniel Whitney Jr, MD Discharging clinician: Raquel Delgadillo Anticipated date of discharge: 11/15/16 - Patient Status Disposition: Home, Self-Care Condition: Good Functional capacity at discharge: independent ambulation Overall status at discharge: patient is progressing back to baseline - Discharge Instructions Follow Up With: Daniel Whitney Jr, MD [Primary Care Provider] - 11/24/16 2:30 pm Additional Instructions: Follow-up with primary care provider as scheduled - Diet and Activity Activity: increase activity as tolerated Diet: diabetic diet, low fat, low cholesterol Hospital course: Ms. Flanagan is a 41 year old female with past medical history of asthma, chronic bronchitis, diabetes, GERD, hypertension, Crohn's, morbid obesity. Patient presented to the emergency department chief complaint shortness of breath, cough , chest wall pain, and generalized fatigue 2 weeks. Patient was seen in the emergency department several days prior to this presentation for the same complaint at which time she was discharged on antibiotics and a course of prednisone without improvement. Workup in the emergency department unremarkable other than mild leukocytosis and slightly abnormal urinalysis. Chest x-ray negative. VQ scan negative for PE. Flu swabs negative. The patient was admitted to the hospitalist service for further evaluation and management. Patient denied dysuria and urine culture negative. No other signs of an acute infection, mild leukocytosis likely secondary to outpatient steroid use. Echocardiogram was unremarkable with ejection fraction of 65% and mild diastolic dysfunction. Patient was alert and oriented 3 throughout this admission. On day of discharge, she denied shortness of breath above her norm and tolerated room air well. She was also ambulatory around her room without difficulties, weakness, or lightheadedness. She was able to tolerate a regular diet while admitted. She was discharged home in stable condition with close outpatient follow-up recommended. ITS Impressions Chest X-Ray 11/14/16 12:12 IMPRESSION: No acute cardiopulmonary process. D/ / 11/14/2016 13:02:16 Scott Shay MD / Gisel Banda Interpreting Provider: Scott Shay MD Pulmonary Perfusion Imaging 11/14/16 16:29 IMPRESSION: Low Probability for Pulmonary Embolus. D/ / Ajay Schroeder MD / Ajay Schroeder MD Interpreting Provider: Ajay Schroeder MD Echo with imaging enhancement impressions: LVEF 65%. Normal left ventricle size and systolic function. There is evidence of mild diastolic dysfunction of the left ventricle. Normal left ventricular size and function. No significant valvular dysfunction. No pulmonary hypertension. - Time Spent with Patient Total time spent providing and/or coordinating discharge services: - Constitutional Vitals: Temp Pulse Resp BP Pulse Ox 98.1 F 80 20 104/58 97 11/15/16 11:31 11/15/16 11:31 11/15/16 11:31 11/15/16 11:31 11/15/16 11:31 General appearance: Present: A&O X 3, morbidly obese, pleasant, no acute distress, answers questions appropriately - Head Head exam: Present: atraumatic, normocephalic - Eye Eye exam: Present: PERRL, conjuntiva pink, sclera anicteric Pupils: Present: PERRL - Neck Neck exam general surgery: Present: supple, trachea midline. Absent: lymphadenopathy - Respiratory Respiratory exam: Present: CTAB. Absent: accessory muscle use, rales, respiratory distress, rhonchi, wheezes - Cardiovascular Cardiovascular exam: Present: RRR, +S1, +S2. Absent: diastolic murmur, gallop, rubs, systolic murmur - GI/Abdominal GI/Abdominal exam: Present: normal bowel sounds, soft, no peritoneal signs. Absent: distended, tenderness - Extremities Exam Extremities exam: Present: warm, radial pulses palpable and symetrical. Absent : calf tenderness, cyanotic, pedal edema - Neurological Exam Neurological exam: Present: alert, CN II-XII intact, normal gait, oriented X3, no focal deficits, strengths equal and symetr throughout. Absent: pronater drift, facial droop, speech deficit - Skin Skin exam: Present: dry, intact, normal color, warm
--- NOTE | 2016-11-15 16:54 | Electrocardiograph Report ---
[place] [id number] Test Date: 2016-11-14 Pat Name: Meagan Flanagan Department: 105 Room: 3B Gender: F Data Communications Analyst: : 1975 Requested By: Cabrera Newman Order Number: [id number] Reading MD: Twan Novak MD Measurements Intervals [place] Rate: 79 P: 42 ME: 144 QRS: 30 QRSD: 90 T: 39 QT: 382 QTc: 417 Interpretive Statements SINUS RHYTHM BASELINE ARTIFACT Electronically Signed On 11-15-2016 16:53:44 EST by Twan Novak MD
[2016-11-15] MEDS ORDERED: valACYclovir 500 MG TABLET PO SCH (18:00)
[2016-11-15] MEDS ORDERED: Diltiazem CD (24hr) 120 MG CAPSULE PO SCH (18:00)
[2016-11-15] MEDS ORDERED: Loratadine 10 MG TABLET PO SCH (21:00)
[2016-11-16] MEDS ORDERED: Pregabalin 75 MG CAPSULE PO SCH (09:00)
[2016-11-16] MEDS ORDERED: BuPROPion XL (24 HR) 150 MG TABLET PO SCH (09:00)
== END 2016-11-15 14:45 | disposition home or self-care (01) | DRG 141 ==
LOC: 3BNU 11:53 → EMEROO 11:53 → 3BNU 16:40
PROVIDERS: ADMIT Nurse Practitioner Family; ATTEND Nurse Practitioner Family

== ENCOUNTER 2017-04-17 15:30 | Inpatient (IN) ==
[2017-04-17] MEDS ORDERED: 0.9 % Sodium Chloride 1,000 ML IVC ONE (16:24)
[2017-04-17] MEDS ORDERED: Ondansetron 4 MG/2 ML VIAL IVP ONE (16:24)
[2017-04-17] MEDS ORDERED: *HR* HYDROmorphone 2 MG/ML SYRINGE IVP ONE (16:25)
[2017-04-17] MEDS ORDERED: methylPREDNISolone 125 MG/2 ML VIAL IVP ONE (16:26)
--- NOTE | 2017-04-17 16:29 | Emergency Department Note ---
Disposition Clinical Impression: Inflammatory bowel disease Disposition: Admitted As Inpatient Condition: Fair Instructions: Abdominal Pain (ED) Prescriptions: Ondansetron ODT [Zofran ODT] 4 mg SL Q6HR #20 tab.rapdis OxyCODONE/APAP 5/325 [Percocet 5/325 MG] 1 each PO Q6HR PRN #10 tablet PRN Reason: Pain predniSONE [PredniSONE] 60 mg PO DAILY #15 tablet Referrals: Daniel Whitney Jr, MD [Primary Care Provider] - Dede Willingham MD [Partnered Physician] - Forms: Work/School Release, ED Satisfaction Letter Time of Disposition: 17:28 Abdominal Pain HPI - General Chief Complaint: ED Abdominal Pain Stated Complaint: Crohn's Flare Up Time Seen by Provider: 04/17/17 16:24 Source: patient Mode of arrival: private vehicle Limitations: no limitations Nursing Notes Reviewed: Yes Vital Signs Reviewed: Yes - History of Present Illness HPI Narrative: 5-year-old female patient presents to the emergency department with complaint of diffuse abdominal pain, nausea, diarrhea and "I think I am having a Crohn's flareup." Patient states that she contacted her GI specialist Dr. Willingham, and was told to come to the emergency department for evaluation and possible admission. Patient was recently started on a new Crohn's medication due to cost issues with her insurance. Patient states that she has not seen any significant improvement or stabilization with this new medication but is unsure of the name. She denies any chest pain, shortness of breath, dizziness, lightheadedness. She denies any fever, chills or urinary complaints. Pt Subjective Complaint: abdominal pain Pain Severity: severe Pain Scale: 10 Quality: aching, fullness Radiation: none Migration to: no migration Improves with: nothing Worsens with: nothing Context: history of similar episodes Associated symptoms: Reports: nausea, diarrhea Treatments prior to arrival: none - Related Data Home Medications Medication Instructions Recorded Confirmed Albuterol Neb [Proventil Neb] 2.5 mg IH QID 09/09/15 11/14/16 Albuterol Sulfate [Albuterol 2 puff IH Q4HR 09/09/15 11/14/16 Inhaler] Azelastine 0.1% Nasal [place] 1 spray NS BID 09/09/15 11/14/16 [Astelin] Bupropion HCl [Wellbutrin Xl] 450 mg PO QAM 12/29/15 03/06/17 Cetirizine HCl [Zyrtec] 10 mg PO HS 09/09/15 11/14/16 Diltiazem HCl [Diltiazem 24Hr Cd] 120 mg PO QPM 09/09/15 11/14/16 Docusate [Colace] 100 mg PO QPM PRN 09/09/15 11/14/16 FLUoxetine HCl [Prozac] 80 mg PO QAM 09/09/15 11/14/16 Ferrous Sulfate 325 mg PO QPM 09/09/15 11/14/16 Fluticasone Propionate Nasal 50 mcg NS BID 09/09/15 11/14/16 [Flonase] Fluticasone/Salmeterol [Advair Hfa 2 puff IH BID 09/09/15 11/14/16 115-21 Mcg Inhaler] Furosemide [Lasix] 20 mg PO QAM 09/09/15 11/14/16 Indomethacin [Indocin] 50 mg PO TIDWM 09/09/15 11/14/16 Lisinopril [Zestril] 20 mg PO QAM 09/09/15 11/14/16 Montelukast [Singulair] 10 mg PO QPM 09/09/15 11/14/16 Tizanidine HCl [Zanaflex] 2 mg PO Q12H PRN 09/09/15 11/14/16 clonazePAM [Klonopin] 0.5 mg PO 5XD PRN 09/09/15 11/14/16 valACYclovir [Valtrex] 500 mg PO QPM 09/09/15 11/14/16 Topiramate [Topamax] 50 mg PO BID 02/14/16 11/14/16 SUMAtriptan Succinate [Imitrex] 100 mg PO AD PRN 05/13/16 11/14/16 l-Norgest/E.estradiol-E.estrad 1 tab PO DAILY 05/13/16 11/14/16 [Ashlyna 0.15-0.03-0.01 mg Tab] Ascorbic Acid [Vitamin C] 500 mg PO DAILY 11/14/16 11/14/16 Budesonide [Uceris] 9 mg PO DAILY 11/14/16 11/14/16 Cholecalciferol (Vitamin D3) 1,000 unit PO DAILY 11/14/16 11/14/16 [Vitamin D3] Magnesium Oxide [Mag-Ox] 400 mg PO BID 11/14/16 11/14/16 Metformin HCl [Metformin HCl ER] 500 mg PO BID 11/14/16 11/14/16 Pregabalin [Lyrica] 150 mg PO DAILY 11/14/16 11/14/16 Previous Rx's Medication Instructions Recorded Omeprazole [PriLOSEC] 40 mg PO DAILY #30 capsule. 04/22/16 Ondansetron ODT [Zofran ODT] 4 mg SL Q6HR PRN #14 tab.rapdis 05/09/16 Sucralfate [Carafate] 1 gm PO QIDAC #20 tablet 05/09/16 Dicyclomine [Bentyl] 10 mg PO QID PRN #20 capsule 05/15/16 levoFLOXacin [Levaquin] 750 mg PO DAILY #5 tablet 11/15/16 predniSONE [PredniSONE] 40 mg PO DAILY #10 tablet 11/15/16 OxyCODONE/APAP 5/325 [Percocet 1 each PO Q6HR PRN #8 tablet 03/10/17 5/325 MG] Ondansetron ODT [Zofran ODT] 4 mg SL Q6HR #20 tab.rapdis 04/17/17 OxyCODONE/APAP 5/325 [Percocet 1 each PO Q6HR PRN #10 tablet 04/17/17 5/325 MG] predniSONE [PredniSONE] 60 mg PO DAILY #15 tablet 04/17/17 Allergies Allergy/AdvReac Type Severity Reaction Status Date / Time gabapentin Allergy Swelling Verified 03/16/17 14:28 of Lip/Tongue/Throat ziprasidone [From Geodon] AdvReac Agitated Verified 03/16/17 14:28 All systems ED: reviewed and negative except as stated. Constitutional: Denies: fever, chills Cardiovascular: Denies: chest pain Respiratory: Denies: cough, dyspnea Gastrointestinal: Reports: abdominal pain, nausea, diarrhea. Denies: vomiting Genitourinary: Denies: urgency, dysuria, frequency Musculoskeletal: Denies: back pain, neck pain Integumentary: Denies: rash, abrasion, lesions Neurological: Denies: headache Psychiatric: Denies: anxiety, depression, suicidal thoughts, homicidal thoughts Abdominal Pain PMH - Past Medical History Medical history: Reports: arthritis, asthma, COPD, diabetes, GERD, hypertension , migraine, other Female Surgical History: Reports: Adenoidectomy, knee replacement, orthopedic, other, Tonsillectomy, other [employer] history: Reports: bilateral tubal ligation Psychiatric history: Reports: depression - Social History Smoking status: Never smoker Alcohol use: Reports: none Drug use: Reports: none Physical Exam - General Limitations: no limitations General appearance: alert, in no apparent distress - Head Head exam: atraumatic, normocephalic, normal inspection - Eye Eye exam: Present: normal appearance, PERRL - Neck Neck exam: Present: normal inspection, full ROM, trachea midline - Chest Chest inspection: Present: normal inspection, symmetric chest wall rise. Absent : tenderness - Respiratory Respiratory exam: Present: normal lung sounds bilaterally. Absent: respiratory distress - Cardiovascular Cardiovascular exam: Present: regular rate, normal rhythm, normal heart sounds - Abdominal Exam Abdominal exam: Present: soft, tenderness, normal bowel sounds. Absent: distention, guarding, rebound, rigidity Abdominal tenderness: Present: diffuse, mild - Extremities Exam Extremities exam: Present: normal inspection, full ROM - Expanded Lower Extremity Exam Gait: observed and normal - Back Exam Back exam: Present: normal inspection, full ROM. Absent: tenderness - Neurological Exam Neurological exam: Present: alert, oriented X3 - Psychiatric Psychiatric exam: Present: normal affect, normal mood - Skin Skin exam: Present: warm, dry, intact, normal color Course - Consultations Consultation #1: I discussed the patient's case with the Hospitalist, Dr. Martinez, he accepts the patient. Time: 17:58 Vital Signs Temperature 99.2 F 04/17/17 15:30 Pulse Rate 89 04/17/17 15:30 Respiratory Rate 14 04/17/17 15:30 Blood Pressure 135/76 04/17/17 15:30 O2 Sat by Pulse Oximetry 97 04/17/17 15:30 Temperature 99.2 F 04/17/17 15:30 Pulse Rate 89 04/17/17 15:30 Respiratory Rate 14 04/17/17 15:30 Blood Pressure 135/76 04/17/17 15:30 O2 Sat by Pulse Oximetry 97 04/17/17 15:30 Oxygen Delivery Oxygen Delivery Room Air Abdominal Pain - Lab Data Result diagrams: 04/17/17 16:45 04/17/17 16:45 Lab Results 04/17/17 04/17/17 04/17/17 Range/Units 16:15 16:45 16:45 WBC 13.1 H (4.3-11.1) K/mcL RBC 4.06 (3.82-4.97) M/mcL Hgb 12.5 (11.5-15.4) g/dL Hct 38.9 (35.3-44.9) % MCV 95.8 (83.0-100.0) fL MCH 30.8 (28.0-33.3) pg MCHC 32.1 (31.6-35.5) g/dL RDW 13.5 (11.5-14.5) % Plt Count 356 (140-400) K/mcL MPV 10.6 (9.4-12.4) fL Immature Gran % 0.4 (0-4) % Seg Neutrophils % 78.2 % Lymphocytes % 15.6 % Monocytes % 5.1 % Eosinophils % 0.3 % Basophils % 0.4 % Neutrophils # 10.2 H (1.6-8.9) K/mcL Lymphocytes # 2.0 (0.6-4.6) K/mcL Monocytes # 0.7 (0.0-1.3) K/mcL Eosinophils # 0.0 (0.0-0.6) K/mcL Basophils # 0.1 (0.0-0.2) K/mcL ESR (0-15) mm/hr Sodium 136 (136-145) mEq/L Potassium 4.2 (3.5-4.5) mEq/L Chloride 105 (98-109) mEq/L Carbon Dioxide 22 (19-29) mEq/L BUN 14 (7-20) mg/dL Creatinine 0.99 (0.57-1.11) mg/dL Est GFR ( Amer) > 60 (> 60) Est GFR (Non-Af Amer) > 60 (> 60) BUN/Creatinine Ratio 14 (6-26) Glucose 92 (70-99) mg/dL Calculated Osmolality 282 (280-300) Calcium 8.1 L (8.6-10.8) mg/dL Total Bilirubin 0.4 (0.2-1.2) mg/dL AST 28 (5-34) Units/L ALT 34 (0-55) Units/L Alkaline Phosphatase 52 (38-126) Units/L Troponin I (0-0.03) ng/mL Serum Total Protein 7.0 (6.0-8.3) g/dL Albumin 3.0 L (3.5-5.0) g/dL Globulin 4.0 H (2.4-3.5) g/dL Albumin/Globulin Ratio 0.8 L (1.1-2.2) Amylase 45 (25-125) Units/L Lipase 18 (8-78) Units/L Urine Color Yellow (Yellow) Urine Clarity Cloudy A (Clear) Urine pH 5.5 (5.0-8.0) pH Units Ur Specific Alexander 1.025 (1.010-1.025) Urine Protein Negative (Neg-Trace) mg/dL Urine Glucose (UA) Normal (Normal) mg/dL Urine Ketones Negative (Negative) mg/dL Urine Blood Negative (Negative) Urine Nitrite Negative (Negative) Urine Bilirubin Negative (Negative) Urine Urobilinogen Normal (Normal) mg/dL Ur Leukocyte Esterase Moderate H (Negative) Urine Microscopic RBC 3-5 H (0-3) per hpf Urine Microscopic WBC 15-30 H (0-3) per hpf Ur Squamous Epith Cells Many H (None-Few) per lpf Urine Bacteria Moderate H (None-Few) per hpf Hyaline Casts None Seen (None-Few) per lpf Ur Culture Indicated? YES A (NO) 04/17/17 04/17/17 Range/Units 16:45 16:45 WBC (4.3-11.1) K/mcL RBC (3.82-4.97) M/mcL Hgb (11.5-15.4) g/dL Hct (35.3-44.9) % MCV (83.0-100.0) fL MCH (28.0-33.3) pg MCHC (31.6-35.5) g/dL RDW (11.5-14.5) % Plt Count (140-400) K/mcL MPV (9.4-12.4) fL Immature Gran % (0-4) % Seg Neutrophils % % Lymphocytes % % Monocytes % % Eosinophils % % Basophils % % Neutrophils # (1.6-8.9) K/mcL Lymphocytes # (0.6-4.6) K/mcL Monocytes # (0.0-1.3) K/mcL Eosinophils # (0.0-0.6) K/mcL Basophils # (0.0-0.2) K/mcL ESR 104 H (0-15) mm/hr Sodium (136-145) mEq/L Potassium (3.5-4.5) mEq/L Chloride (98-109) mEq/L Carbon Dioxide (19-29) mEq/L BUN (7-20) mg/dL Creatinine (0.57-1.11) mg/dL Est GFR ( Amer) (> 60) Est GFR (Non-Af Amer) (> 60) BUN/Creatinine Ratio (6-26) Glucose (70-99) mg/dL Calculated Osmolality (280-300) Calcium (8.6-10.8) mg/dL Total Bilirubin (0.2-1.2) mg/dL AST (5-34) Units/L ALT (0-55) Units/L Alkaline Phosphatase (38-126) Units/L Troponin I 0.00 (0-0.03) ng/mL Serum Total Protein (6.0-8.3) g/dL Albumin (3.5-5.0) g/dL Globulin (2.4-3.5) g/dL Albumin/Globulin Ratio (1.1-2.2) Amylase (25-125) Units/L Lipase (8-78) Units/L Urine Color (Yellow) Urine Clarity (Clear) Urine pH (5.0-8.0) pH Units Ur Specific Alexander (1.010-1.025) Urine Protein (Neg-Trace) mg/dL Urine Glucose (UA) (Normal) mg/dL Urine Ketones (Negative) mg/dL Urine Blood (Negative) Urine Nitrite (Negative) Urine Bilirubin (Negative) Urine Urobilinogen (Normal) mg/dL Ur Leukocyte Esterase (Negative) Urine Microscopic RBC (0-3) per hpf Urine Microscopic WBC (0-3) per hpf Ur Squamous Epith Cells (None-Few) per lpf Urine Bacteria (None-Few) per hpf Hyaline Casts (None-Few) per lpf Ur Culture Indicated? (NO)
[2017-04-17 16:38] LABS: Bilirubin,Urine Negative (Negative); Blood,Urine Negative (Negative); Clarity,Urine Cloudy (Clear); Color,Urine Yellow (Yellow); Glucose,Urine (UA) Normal (Normal); Ketones,Urine Negative (Negative); Leukocyte Esterase,Urine Moderate (Negative); Nitrite,Urine Negative (Negative); PH,Urine 5.5 pH Units (5.0-8.0); Protein,Urine Negative (Neg-Trace); Specific Gravity,Urine 1.025 (1.010-1.025); Urobilinogen,Urine Normal (Normal)
[2017-04-17 16:41] LABS: Bacteria,Urine Moderate per hpf (None-Few); Hyaline Casts,Urine None Seen per lpf (None-Few); Squamous Epithelial Cell,Urine Many per lpf (None-Few); WBC,Urine 15-30 per hpf (0-3)
[2017-04-17 16:55] LABS: Basophils # 0.1 K/mcL (0.0-0.2); Basophils % 0.4 %; Eosinophils % 0.3 %; Hematocrit 38.9 % (35.3-44.9); Hemoglobin 12.5 g/dL (11.5-15.4); Immature Granulocytes % 0.4 % (0-4); Lymphocytes % 15.6 %; Mean Corpuscular HGB Conc 32.1 g/dL (31.6-35.5); Mean Corpuscular Hemoglobin 30.8 pg (28.0-33.3); Mean Corpuscular Volume 95.8 fL (83.0-100.0); Mean Platelet Volume 10.6 fL (9.4-12.4); Monocytes # 0.7 K/mcL (0.0-1.3); Monocytes % 5.1 %; Neutrophils # 10.2 K/mcL (1.6-8.9); Platelet Count 356 K/mcL (140-400); Red Blood Count 4.06 M/mcL (3.82-4.97); Red Cell Distribution Width 13.5 % (11.5-14.5); Segmented Neutrophils % 78.2 %
[2017-04-17 17:11] LABS: Alanine Aminotransferase 34 Units/L (0-55); Albumin/Globulin Ratio 0.8 (1.1-2.2); Alkaline Phosphatase 52 Units/L (38-126); Amylase 45 Units/L (25-125); Aspartate Amino Transferase 28 Units/L (5-34); BUN/Creatinine Ratio 14 (6-26); Bilirubin,Total 0.4 mg/dL (0.2-1.2); Blood Urea Nitrogen 14 mg/dL (7-20); Calcium 8.1 mg/dL (8.6-10.8); Carbon Dioxide 22 mEq/L (19-29); Chloride 105 mEq/L (98-109); Glucose 92 mg/dL (70-99); Lipase 18 Units/L (8-78); Osmolality,Calculated 282 (280-300); Potassium 4.2 mEq/L (3.5-4.5); Sodium 136 mEq/L (136-145); eGFR For African Americans > 60 (> 60); eGFR For Non-African Americans > 60 (> 60)
[2017-04-17] MEDS ORDERED: clonazePAM 1 MG TABLET PO PRN (19:48)
[2017-04-17] MEDS ORDERED: SUMAtriptan succinate 50 MG TABLET PO PRN (19:48)
[2017-04-17] MEDS ORDERED: D5% in Water 1,000 ML IVC PRN (19:56)
[2017-04-17] MEDS ORDERED: Naloxone 0.4 MG/ML INJ IVP PRN (19:56)
[2017-04-17] MEDS ORDERED: Acetaminophen 325 MG TABLET PO PRN (19:56)
[2017-04-17] MEDS ORDERED: *HR* Dextrose 50 % in Water (Syg) 50 ML SYRINGE IVP PRN (19:56)
[2017-04-17] MEDS ORDERED: Dextrose Gel 15 GM PO PRN ×2 (19:56)
[2017-04-17] MEDS ORDERED: Ipratropium/Albuterol Neb 3 ML IH PRN (20:02)
--- NOTE | 2017-04-17 20:05 | Internal Med History&Physical ---
Date of Encounter: 04/17/17 Time of Encounter: 20:02 Assessment and Plan (1) Exacerbation of Crohn's disease Current visit: Yes Status: Acute Acute Crohn's exacerbation, accompanied by hematochezia The patient will continue her new medication and presented to the hospital Continue IV fluids Continue Solu-Medrol, IV fluids, start full liquid diet, may keep nothing by mouth he worse Monitor CBC GI consulted Protonix IV for GI prophylaxis and sequential compression devices for DVT prophylaxis. Patient will be admitted as inpatient, expected to stay more than 2 midnights. Full code. Time spent on this admission 40 minutes. Qualifiers: Digestive disease complication type: without complication Qualified Code(s) : K50.90 - Crohn's disease, unspecified, without complications (2) UTI (urinary tract infection) Current visit: Yes Status: Acute Start Rocephin await urine culture final report Qualifiers: Urinary tract infection type: acute cystitis Hematuria presence: without hematuria Qualified Code(s): N30.00 - Acute cystitis without hematuria (3) COPD (chronic obstructive pulmonary disease) Current visit: Yes Status: Acute No exacerbation Qualifiers: COPD type: chronic bronchitis Chronic bronchitis type: unspecified Qualified Code(s): J42 - Unspecified chronic bronchitis (4) Asthma Current visit: No Status: Chronic Qualifiers: Asthma severity: mild intermittent Asthma complication type: uncomplicated Qualified Code(s): J45.20 - Mild intermittent asthma, uncomplicated (5) GERD (gastroesophageal reflux disease) Current visit: No Status: Chronic Qualifiers: Esophagitis presence: esophagitis presence not specified Qualified Code(s) : K21.9 - Gastro-esophageal reflux disease without esophagitis (6) JUAN on CPAP Current visit: No Status: Chronic Internal Medicine - H&P: HPI Chief complaint: Abdominal pain Admitted From: Emergency Dept History of present illness: Ms. Flanagan is a 41 year old female with a past medical history of Crohn's disease , morbid obesity, diastolic CHF, COPD not oxygen dependent, diabetes type 2 not insulin-dependent, the patient has been feeling worse for the past few days, called Dr. Willingham and he referred her to the emergency room. Patient has not been able to take her new Crohn's medication which she cannot recall. She is to take Uceris up until last month but her insurance stopped paying for it. She says she has had like 9 watery bowel movements since yesterday accompanied by his reshaping pain crampy like 10 out of 10 in her entire abdomen. But [place] is 13.1 UA shows moderate bacteria and 30 white blood cells ESR is 104 the patient was started on Solu-Medrol and Dilaudid at the emergency room. She has been complaining of nausea but has not been vomiting. Saw some blood on her stool but her white blood cell count is stable. Mild dysuria. Appears dehydrated Past Med Surg Social Fam HX - Past Medical History Medical history: arthritis, asthma, COPD (Not oxygen dependent), diabetes (Note insulin-dependent), GERD, hypertension, migraine, other (Crohn's, history of Salmonella which was resistant to ampicillin and ciprofloxacin and sulfa, asthma , depression, diastolic CHF with an ejection fraction of 65% and mild diastolic dysfunction, morbid obesity, GERD, obstructive sleep apnea uses a CPAP, migraines) Psychiatric history: depression - Past Surgical History Surgical History: knee replacement, other (Adenoidectomy, tonsillectomy, tubal ligation, carpal tunnel surgery and back surgery) - Social History Smoking Status: Never smoker Packs per day: Second hand smoking Smokeless Tobacco Status: No Alcohol use: none Drug use: none - Family History Father Hx Family Cardiac Disorders: Yes (CABG at age 54) Maternal Hx Family Cancer: Yes (Maternal aunt colon cancer age 30) - Additional Family History Additional family history: Father with CABG at the age of 54 and maternal aunt with colon cancer at the age of 30 Internal Medicine - H&P: Meds Albuterol Neb [Proventil Neb] 2.5 mg IH QID 09/09/15 [History] Albuterol Sulfate [Albuterol Inhaler] 2 puff IH Q4HR 09/09/15 [History] Azelastine 0.1% Nasal [place] [Astelin] 1 spray NS BID 09/09/15 [History] Bupropion HCl [Wellbutrin Xl] 450 mg PO QAM 09/09/15 [History] Cetirizine HCl [Zyrtec] 10 mg PO HS 09/09/15 [History] Diltiazem HCl [Diltiazem 24Hr Cd] 120 mg PO QPM 09/09/15 [History] Docusate [Colace] 100 mg PO QPM PRN 09/09/15 [History] FLUoxetine HCl [Prozac] 80 mg PO QAM 09/09/15 [History] Ferrous Sulfate 325 mg PO QPM 09/09/15 [History] Fluticasone Propionate Nasal [Flonase] 50 mcg NS BID 09/09/15 [History] Fluticasone/Salmeterol [Advair Hfa 115-21 Mcg Inhaler] 2 puff IH BID 09/09/15 [ History] Furosemide [Lasix] 20 mg PO QAM 09/09/15 [History] Indomethacin [Indocin] 50 mg PO TIDWM 09/09/15 [History] Lisinopril [Zestril] 20 mg PO QAM 09/09/15 [History] Montelukast [Singulair] 10 mg PO QPM 09/09/15 [History] Tizanidine HCl [Zanaflex] 2 mg PO Q12H PRN 09/09/15 [History] clonazePAM [Klonopin] 0.5 mg PO 5XD PRN 09/09/15 [History] valACYclovir [Valtrex] 500 mg PO QPM 09/09/15 [History] Topiramate [Topamax] 50 mg PO BID 02/14/16 [History] Omeprazole [PriLOSEC] 40 mg PO DAILY #30 capsule. 04/22/16 [Rx] Ondansetron ODT [Zofran ODT] 4 mg SL Q6HR PRN #14 tab.rapdis 05/09/16 [Rx] Sucralfate [Carafate] 1 gm PO QIDAC #20 tablet 05/09/16 [Rx] SUMAtriptan Succinate [Imitrex] 100 mg PO AD PRN 05/13/16 [History] l-Norgest/E.estradiol-E.estrad [Ashlyna 0.15-0.03-0.01 mg Tab] 1 tab PO DAILY [History] Dicyclomine [Bentyl] 10 mg PO QID PRN #20 capsule 05/15/16 [Rx] Ascorbic Acid [Vitamin C] 500 mg PO DAILY 11/14/16 [History] Budesonide [Uceris] 9 mg PO DAILY 11/14/16 [History] Cholecalciferol (Vitamin D3) [Vitamin D3] 1,000 unit PO DAILY 11/14/16 [History] Magnesium Oxide [Mag-Ox] 400 mg PO BID 11/14/16 [History] Metformin HCl [Metformin HCl ER] 500 mg PO BID 11/14/16 [History] Pregabalin [Lyrica] 150 mg PO DAILY 11/14/16 [History] levoFLOXacin [Levaquin] 750 mg PO DAILY #5 tablet 11/15/16 [Rx] predniSONE [PredniSONE] 40 mg PO DAILY #10 tablet 11/15/16 [Rx] OxyCODONE/APAP 5/325 [Percocet 5/325 MG] 1 each PO Q6HR PRN #8 tablet 03/10/17 [ Rx] Ondansetron ODT [Zofran ODT] 4 mg SL Q6HR #20 tab.rapdis 04/17/17 [Rx] OxyCODONE/APAP 5/325 [Percocet 5/325 MG] 1 each PO Q6HR PRN #10 tablet 04/17/17 [Rx] predniSONE [PredniSONE] 60 mg PO DAILY #15 tablet 04/17/17 [Rx] Allergies gabapentin Allergy (Verified 03/16/17 14:28) Swelling of Lip/Tongue/Throat ziprasidone [From Geodon] Adverse Reaction (Verified 03/16/17 14:28) Agitated All Systems PM: A 10-system review of systems was performed and is negative for pertinent findings except as documented above in the HPI. Review of systems: No chest pain, short of breath, other systems out of the 10 reviewed were negative - Constitutional Vitals: Temp Pulse Resp BP Pulse Ox 99.2 F 89 16 136/81 97 04/17/17 15:30 04/17/17 15:30 04/17/17 18:06 04/17/17 18:06 04/17/17 15:30 General appearance: Present: A&O X 3 - Head Head exam: Present: atraumatic, normocephalic - Eye Eye exam: Present: PERRL, conjuntiva pink, sclera anicteric Pupils: Present: PERRL - Neck Neck exam general surgery: Present: supple, trachea midline. Absent: lymphadenopathy - Respiratory Respiratory exam: Present: CTAB. Absent: accessory muscle use, rales, rhonchi, wheezes - Cardiovascular Cardiovascular exam: Present: RRR, +S1, +S2. Absent: diastolic murmur, gallop, rubs, systolic murmur - GI/Abdominal GI/Abdominal exam: Present: normal bowel sounds, soft, tenderness (Diffuse abdominal tenderness, no rebound), no peritoneal signs. Absent: distended - Extremities Exam Extremities exam: Present: warm, radial pulses palpable and symetrical. Absent : calf tenderness, cyanotic, pedal edema - Neurological Exam Neurological exam: Present: CN II-XII intact, oriented X3, no focal deficits. Absent: pronater drift, facial droop, speech deficit - Skin Skin exam: Present: dry, intact Internal Med - H&P Results - Labs CBC & Chem 7: 04/17/17 16:45 04/17/17 16:45
[2017-04-17] MEDS: Insulin LISPRO 300 UNITS/3 ML VIAL SQ SCH ×2 (21:08)
[2017-04-17] MEDS: Pantoprazole 40 MG VIAL IVP SCH (21:32)
[2017-04-17] MEDS: Topiramate 25 MG TABLET PO SCH (21:32)
[2017-04-17] MEDS: Sucralfate 1 GM TABLET PO SCH (21:32)
[2017-04-17] MEDS: 0.9 % Sodium Chloride 1,000 ML IVC SCH (21:33)
[2017-04-17] MEDS: *HR* HYDROmorphone (PF) 1 MG/ML SYRINGE IVP PRN (21:34)
[2017-04-17] MEDS: Ondansetron 4 MG/2 ML VIAL IVP PRN (22:25)
[2017-04-18] MEDS: MethylPREDNISolone 40 MG/ML VIAL IVP SCH ×3 (00:08→16:51)
[2017-04-18] MEDS: *HR* HYDROmorphone (PF) 1 MG/ML SYRINGE IVP PRN ×6 (01:19→22:39)
[2017-04-18 04:10] LABS: Hematocrit 39.2 % (35.3-44.9); Hemoglobin 12.5 g/dL (11.5-15.4); Mean Corpuscular HGB Conc 31.9 g/dL (31.6-35.5); Mean Corpuscular Hemoglobin 30.9 pg (28.0-33.3); Mean Platelet Volume 11.2 fL (9.4-12.4); Platelet Count 356 K/mcL (140-400); Red Blood Count 4.04 M/mcL (3.82-4.97); Red Cell Distribution Width 13.4 % (11.5-14.5)
[2017-04-18 04:30] LABS: BUN/Creatinine Ratio 11 (6-26); Blood Urea Nitrogen 10 mg/dL (7-20); Calcium 9.1 mg/dL (8.6-10.8); Carbon Dioxide 20 mEq/L (19-29); Chloride 107 mEq/L (98-109); Glucose 225 mg/dL (70-99); Osmolality,Calculated 292 (280-300); Potassium 4.3 mEq/L (3.5-4.5); Sodium 138 mEq/L (136-145); eGFR For African Americans > 60 (> 60); eGFR For Non-African Americans > 60 (> 60)
[2017-04-18] MEDS: Ondansetron 4 MG/2 ML VIAL IVP PRN ×2 (06:48→16:51)
[2017-04-18] MEDS: Pantoprazole 40 MG VIAL IVP SCH (08:44)
[2017-04-18] MEDS: Insulin LISPRO 300 UNITS/3 ML VIAL SQ SCH ×4 (08:44→20:16)
[2017-04-18] MEDS: Topiramate 25 MG TABLET PO SCH ×2 (08:46→20:04)
[2017-04-18] MEDS: Sucralfate 1 GM TABLET PO SCH ×4 (08:46→21:00)
[2017-04-18] MEDS: Lisinopril 20 MG TABLET PO SCH (08:46)
[2017-04-18] MEDS: BuPROPion XL (24 HR) 150 MG TABLET PO SCH (08:46)
[2017-04-18] MEDS: Pregabalin 75 MG CAPSULE PO SCH (08:46)
[2017-04-18] MEDS: BUDESONIDE 9 MG PO SCH (08:47)
[2017-04-18] MEDS: FLUoxetine 20 MG CAPSULE PO SCH (08:47)
--- NOTE | 2017-04-18 12:09 | Gastroenterology Consult Note ---
<Hermann Dowd - Last Filed: 04/18/17 12:07> Date of Encounter: 04/18/17 Time of Encounter: 10:40 - Assessment and plan (1) Colitis Current Visit: Yes Status: Acute Assessment and plan: Treated with Rifaximin in January for diarrhea which did not offer her any relief. She has failed Pentasa. Uceris denied by insurance. Budesonide prescribed 03/31. Bentyl helps with cramping. Complete CT A/P to rule out colitis. Consider colonoscopy tomorrow. Start clear liquid diet with no red or purple. (2) GI bleed Current Visit: No Status: Acute Assessment and plan: Secondary to colitis. Hgb 12.5. Continue to monitor CBC and transfuse PRBC as needed. Qualifiers: GI bleed type/associated pathology: unspecified gastrointestinal hemorrhage type Qualified Code(s): K92.2 - Gastrointestinal hemorrhage, unspecified - Time Spent With Patient Total time spent is greater than 50% in coordination of care (as documented) at patient's floor/unit and/or counseling patient: GI History of Present Illness - Data of Consult Patient: known to practice within the last 3 years Consult date: 04/18/17 Requesting Physician: Marquise Kat MD - Consult Narrative Reason for consult: Crohn's History of present illness: Ms. Flanagan is a 41 year old female with PMHx of colitis (suspicious for Crohn's disease although her ASCA has been negative), GERD, HTN, migraines, chronic back pain, asthma, COPD, JUAN, and morbid obesity. She was feeling bad for a few day prior to admission, and was referred to the ED by Dr. Willingham. Patient has not been able to take her new Crohn's medication which she cannot recall. She is to take Uceris up until last month, but her insurance stopped paying for it. She says she had 9 watery BMs since the day before admission accompanied by cramping type pain, rated 10/10. Procedures: EGD 05/14/2016 reflux esophagitis. Colonoscopy 05/14/2016 inflammation in the splenic flexure and proximal descending colon, secondary to colitis. NSAIDs: None Anticoagulation: None Past Med Surg Social Fam HX - Past Medical History Medical history: arthritis, asthma, COPD (Not oxygen dependent), diabetes (Note insulin-dependent), GERD, hypertension, migraine, other (Crohn's, history of Salmonella which was resistant to ampicillin and ciprofloxacin and sulfa, asthma , depression, diastolic CHF with an ejection fraction of 65% and mild diastolic dysfunction, morbid obesity, GERD, obstructive sleep apnea uses a CPAP, migraines) Psychiatric history: depression - Past Surgical History Surgical History: knee replacement, other (Adenoidectomy, tonsillectomy, tubal ligation, carpal tunnel surgery and back surgery) - Social History Smoking Status: Never smoker Packs per day: Second hand smoking Smokeless Tobacco Status: No Alcohol use: none Drug use: none - Family History Father Hx Family Cardiac Disorders: Yes (CABG at age 54) Maternal Hx Family Cancer: Yes (Maternal aunt colon cancer age 30) - Gastrointestinal Gastrointestinal: Present: as per HPI - Constitutional Constitutional: as per HPI - EENT Eyes: as per HPI Ears: Present: as per HPI Nose, mouth and throat: Present: as per HPI - Cardiovascular Cardiovascular ROS: Present: as per HPI - Respiratory Respiratory IM: Present: as per HPI - Genitourinary Genitourinary: Absent: change in color, Urinary frequency - Neurological ROS Neurological GI: Present: as per HPI - Hematologic/Lymphatic Hematologic/Lymphatic pediatric: Present: as per HPI - Musculoskeletal Musculoskeletal ROS GI: Present: as per HPI - Integumentary Integumentary GI: Present: as per HPI - Psychiatric ROS Psychiatric GI: Present: as per HPI - Endocrine Endocrine IM: Present: as per HPI - Constitutional Vitals: Temp Pulse Resp BP Pulse Ox 98.5 F 70 14 188/85 97 04/18/17 11:31 04/18/17 11:31 04/18/17 11:31 04/18/17 11:31 04/18/17 11:31 General appearance: Present: cooperative, A&O X 3, no acute distress, answers questions appropriately - Head Head exam: Present: atraumatic, normocephalic - Eye Eye exam: Present: normal appearance, sclera anicteric - ENT ENT exam: Present: mucous membranes dry - Neck Neck exam general surgery: Present: normal inspection, trachea midline - Respiratory Respiratory exam: Present: CTAB - Cardiovascular Cardiovascular exam: Present: RRR, +S1, +S2 - GI/Abdominal GI/Abdominal exam: Present: soft, tenderness (Diffuse), no peritoneal signs. Absent: distended, firm, guarding - Rectal Rectal exam: Present: deferred - Extremities Exam Extremities exam: Present: warm - Neurological Exam Neurological exam: Present: no focal deficits - Psychiatric Psychiatric exam: Present: normal affect, normal mood - Skin Skin exam: Present: dry, intact, normal color, warm Results - Labs CBC & Chem 7: 04/18/17 03:32 04/18/17 03:32 Labs: Last Result ESR 104 mm/hr (0-15) H 04/17/17 16:45 Calcium 9.1 mg/dL (8.6-10.8) 04/18/17 03:32 Troponin I 0.00 ng/mL (0-0.03) 04/17/17 16:45 Entire Visit Hgb 12.5 g/dL (11.5-15.4) 04/18/17 03:32 Hct 39.2 % (35.3-44.9) 04/18/17 03:32 Total Bilirubin 0.4 mg/dL (0.2-1.2) 04/17/17 16:45 AST 28 Units/L (5-34) 04/17/17 16:45 ALT 34 Units/L (0-55) 04/17/17 16:45 Amylase 45 Units/L (25-125) 04/17/17 16:45 Lipase 18 Units/L (8-78) 04/17/17 16:45 Consult Discharge Plan - Plan Referrals: Daniel Whitney Jr, MD [Primary Care Provider] - <Dede Willingham - Last Filed: 04/18/17 14:55> Date of Encounter: 04/18/17 Time of Encounter: 13:00 - Time Spent With Patient Total time spent is greater than 50% in coordination of care (as documented) at patient's floor/unit and/or counseling patient: GI History of Present Illness - Data of Consult Requesting Physician: Marquise Kat MD - Consult Narrative History of present illness: Ms. Flanagan is a 41 year old female - Constitutional Vitals: Temp Pulse Resp BP Pulse Ox 98.5 F 70 14 188/85 97 04/18/17 11:31 04/18/17 11:31 04/18/17 11:31 04/18/17 11:31 04/18/17 11:31 Results - Labs CBC & Chem 7: 04/18/17 03:32 04/18/17 03:32 Labs: Last Result ESR 104 mm/hr (0-15) H 04/17/17 16:45 Calcium 9.1 mg/dL (8.6-10.8) 04/18/17 03:32 Troponin I 0.00 ng/mL (0-0.03) 04/17/17 16:45 Entire Visit Hgb 12.5 g/dL (11.5-15.4) 04/18/17 03:32 Hct 39.2 % (35.3-44.9) 04/18/17 03:32 Total Bilirubin 0.4 mg/dL (0.2-1.2) 04/17/17 16:45 AST 28 Units/L (5-34) 04/17/17 16:45 ALT 34 Units/L (0-55) 04/17/17 16:45 Amylase 45 Units/L (25-125) 04/17/17 16:45 Lipase 18 Units/L (8-78) 04/17/17 16:45 - Impressions Impressions Abdomen/Pelvis CT 04/18/17 13:00 IMPRESSION: 1. No evidence of acute inflammatory bowel disease. 2. Diverticulosis. D/ / 04/18/2017 13:45:35 Jagdish Rhodes MD [facility] Interpreting Provider: Jagdish Rhodes MD - Attending Attestation I examined this patient and my medical decision-making was reviewed with the Resident Physician. I agree with the documented findings, disposition and treatment plan as described except to the extent set forth below. worsening or symptom of colitis. No help with the Entocort and PO steroids make her swell up. No help with the use uceris. Patient will have a CT done today and if negative then colonoscopy to assess her underlying colitis status as she is having more abdominal pain with more bloody bowel movement
--- NOTE | 2017-04-18 13:59 | Internal Med Progress Note ---
<OctavionydiatavonZac gant - Last Filed: 04/18/17 13:56> Date of Encounter: 04/18/17 Time of Encounter: 10:15 - Assessment and plan (1) Colitis Current Visit: Yes Status: Acute Assessment and plan: Patient being treated for Chron's disease although dx has not been fully confirmed according to GI. ASCA has been negative. Patient has been treated with Rifaximin in January for diarrhea which did not offer her any relief. She has failed Pentasa. Uceris denied by insurance. Budesonide prescribed 03/31. Bentyl helps with cramping. CT A/P was completed which showed: No evidence of acute inflammatory bowel disease. and Diverticulosis. GI Considering colonoscopy tomorrow. Started on clear liquid diet with no red or purple. Continue IV steroids Continue to monitor H/H due to hematochezia.(Has been stable at 12.5) (2) UTI (urinary tract infection) Current Visit: Yes Status: Acute Assessment and plan: Patient asymptomatic but had mod leukesterase, 15-30 WBCs, moderate bacteria, and many squamous epithelium on UA. Culture is negative. Will D/C abx. Qualifiers: Urinary tract infection type: acute cystitis Hematuria presence: without hematuria Qualified Code(s): N30.00 - Acute cystitis without hematuria (3) COPD (chronic obstructive pulmonary disease) Current Visit: Yes Status: Acute Assessment and plan: Stable, Chronic, Continue home meds. Qualifiers: COPD type: chronic bronchitis Chronic bronchitis type: unspecified Qualified Code(s): J42 - Unspecified chronic bronchitis (4) JUAN on CPAP Current Visit: No Status: Chronic Assessment and plan: Stable chronic, continue CPAP at night. - Subjective Interval history: Patient reports no diarrea since admission. She reports nausea and bloating. Per GI note patient was on Uceris but insurance has denied it. She was started on Budesonide on 03/31, but it has not been helping her. Bentyl has been helping with her craping pain. Patient had a CT today which showed no signs of IBD, just some diverticulosis. GI considering a colonoscopy tomorrow. Her urine culture is negative. - Constitutional Vitals: Temp Pulse Resp BP Pulse Ox 98.5 F 70 14 188/85 97 04/18/17 11:31 04/18/17 11:31 04/18/17 11:31 04/18/17 11:31 04/18/17 11:31 General appearance: Present: A&O X 3, morbidly obese, no acute distress - Eye Eye exam: Present: PERRL - ENT ENT exam: Present: mucous membranes moist - Respiratory Respiratory exam: Present: CTAB. Absent: rales, rhonchi, wheezes - Cardiovascular Cardiovascular exam: Present: RRR, +S1, +S2. Absent: gallop, rubs, systolic murmur - GI/Abdominal GI/Abdominal exam: Present: normal bowel sounds, soft, tenderness Additional comments: diffusely tender worse in the lower quadrants - Extremities Exam Extremities exam: Absent: cyanotic, tenderness - Neurological Exam Neurological exam: Present: alert. Absent: speech deficit - Psychiatric Psychiatric exam: Present: normal affect, normal mood - Skin Skin exam: Present: dry, warm Internal Medicine: Result - Labs CBC & Chem 7: 04/18/17 03:32 04/18/17 03:32 Labs: Short CBC 04/18/17 Range/Units 03:32 WBC 7.4 (4.3-11.1) K/mcL Hgb 12.5 (11.5-15.4) g/dL Hct 39.2 (35.3-44.9) % Plt Count 356 (140-400) K/mcL BMP 04/18/17 03:32 Sodium 138 Potassium 4.3 Chloride 107 Carbon Dioxide 20 BUN 10 Creatinine 0.93 Glucose 225 H Calcium 9.1 - Impressions Impressions Abdomen/Pelvis CT 04/18/17 13:00 IMPRESSION: 1. No evidence of acute inflammatory bowel disease. 2. Diverticulosis. D/ / 04/18/2017 13:45:35 Jagdish Rhodes MD / [facility] Interpreting Provider: Jagdish Rhodes MD Consult Discharge Plan - Plan Referrals: Daniel Whitney Jr, MD [Primary Care Provider] - <Marquise Kat - Last Filed: 04/18/17 18:53> Date of Encounter: 04/18/17 - Constitutional Vitals: Temp Pulse Resp BP Pulse Ox 98.2 F 82 16 153/78 96 04/18/17 18:34 04/18/17 18:34 04/18/17 18:34 04/18/17 18:34 04/18/17 18:34 Internal Medicine: Result - Labs CBC & Chem 7: 04/18/17 03:32 04/18/17 03:32 Labs: Short CBC 04/18/17 Range/Units 03:32 WBC 7.4 (4.3-11.1) K/mcL Hgb 12.5 (11.5-15.4) g/dL Hct 39.2 (35.3-44.9) % Plt Count 356 (140-400) K/mcL BMP 04/18/17 03:32 Sodium 138 Potassium 4.3 Chloride 107 Carbon Dioxide 20 BUN 10 Creatinine 0.93 Glucose 225 H Calcium 9.1 - Impressions Impressions Abdomen/Pelvis CT 04/18/17 13:00 IMPRESSION: 1. No evidence of acute inflammatory bowel disease. 2. Diverticulosis. D/ / 04/18/2017 13:45:35 Jagdish Rhodes MD / [facility] Interpreting Provider: Jagdish Rhodes MD - Attending Attestation I examined this patient and my medical decision-making was reviewed with the Resident Physician, Dr. rFederick. I agree with the documented findings, disposition and treatment plan as described except to the extent set forth below. I have independently obtained history and examined the patient and my findings are summarized below: Patient's abdomen is tender to palpation, with voluntary guarding and no rebound. Bowel sounds are audible. Plan: Continue with IV steroids. Supportive care. Pain control. Plan for colonoscopy tomorrow. I discussed the plan with gastroenterology service who agrees with colonoscopy. Further planning to start biologicals outpatient.
[2017-04-18] MEDS ORDERED: SODIUM CHLORIDE/NAHCO3/KCL/PEG 4,000 ML SOLN.RECON PO ONE (14:56)
--- NOTE | 2017-04-18 15:23 | Electrocardiograph Report ---
[place] [id number] Test Date: 2017-04-17 Pat Name: Meagan Flanagan Department: [id number] Room: 3B23 Gender: F Auto [employer]: : [id number] Requested By: Mahendra Veliz Order Number: [id number] Reading MD: Twan Novak MD Measurements Intervals [place] Rate: 71 P: 20 MI: 93 QRS: 30 QRSD: 85 T: 15 QT: 398 QTc: 420 Interpretive Statements SINUS RHYTHM WITH SHORT MI INTERVAL BASELINE ARTIFACT Electronically Signed On 04-18-2017 8:19:20 EDT by Twan Novak MD
[2017-04-18] MEDS: Diltiazem CD (24hr) 120 MG CAPSULE PO SCH (16:50)
[2017-04-19] MEDS: Ondansetron 4 MG/2 ML VIAL IVP PRN ×2 (00:30→09:19)
[2017-04-19] MEDS: MethylPREDNISolone 40 MG/ML VIAL IVP SCH ×3 (00:42→17:01)
[2017-04-19] MEDS: *HR* HYDROmorphone (PF) 1 MG/ML SYRINGE IVP PRN ×3 (03:35→17:03)
[2017-04-19 04:00] LABS: BUN/Creatinine Ratio 11 (6-26); Blood Urea Nitrogen 9 mg/dL (7-20); Calcium 9.3 mg/dL (8.6-10.8); Carbon Dioxide 24 mEq/L (19-29); Chloride 108 mEq/L (98-109); Glucose 121 mg/dL (70-99); Osmolality,Calculated 286 (280-300); Potassium 4.7 mEq/L (3.5-4.5); Sodium 138 mEq/L (136-145); eGFR For African Americans > 60 (> 60); eGFR For Non-African Americans > 60 (> 60)
[2017-04-19 04:02] LABS: Hematocrit 37.5 % (35.3-44.9); Mean Corpuscular Hemoglobin 30.8 pg (28.0-33.3); Mean Corpuscular Volume 96.4 fL (83.0-100.0); Mean Platelet Volume 10.9 fL (9.4-12.4); Platelet Count 324 K/mcL (140-400); Red Blood Count 3.89 M/mcL (3.82-4.97); Red Cell Distribution Width 13.5 % (11.5-14.5)
[2017-04-19] MEDS: Sucralfate 1 GM TABLET PO SCH ×4 (04:37→21:31)
[2017-04-19] MEDS: Pregabalin 75 MG CAPSULE PO SCH ×2 (10:14→18:01)
[2017-04-19] MEDS: Insulin LISPRO 300 UNITS/3 ML VIAL SQ SCH ×4 (10:14→21:32)
[2017-04-19] MEDS: Pantoprazole 40 MG VIAL IVP SCH (10:15)
[2017-04-19] MEDS: FLUoxetine 20 MG CAPSULE PO SCH ×2 (10:15→17:59)
[2017-04-19] MEDS: BuPROPion XL (24 HR) 150 MG TABLET PO SCH ×3 (10:15→18:00)
[2017-04-19] MEDS: Topiramate 25 MG TABLET PO SCH ×2 (10:16→21:31)
[2017-04-19] MEDS: Lisinopril 20 MG TABLET PO SCH ×2 (10:16→18:01)
[2017-04-19] MEDS: 0.9 % Sodium Chloride 1,000 ML IVC SCH (13:30)
--- NOTE | 2017-04-19 13:38 | Anesthesia Evaluation PreOp ---
Date of Encounter: 04/19/17 Time of Encounter: 13:35 - Past History Planned Operation: Colonoscopy Cardiac History: HTN Pulmonary History: Asthma, COPD (not O2 dependent), JUAN Dx HIV COUNSELOR History: Denies Any Significant HX Other Medical History: Diabetes Type II, GERD, Other (Morbid obesity) Anesthesia History: No Prior Anesthetic Complications, Past Anesthesia ( Laminectomy L5-S1) : No (Signed waiver of preg test) Alcohol Use: none Drug use: none Medications and Allergies Albuterol Neb [Proventil Neb] 2.5 mg IH QID 09/09/15 [History] Albuterol Sulfate [Albuterol Inhaler] 2 puff IH Q4HR 09/09/15 [History] Cetirizine HCl [Zyrtec] 10 mg PO HS 09/09/15 [History] Diltiazem HCl [Diltiazem 24Hr Cd] 120 mg PO QPM 09/09/15 [History] Docusate [Colace] 100 mg PO QPM PRN 09/09/15 [History] FLUoxetine HCl [Prozac] 80 mg PO QAM 09/09/15 [History] Ferrous Sulfate 325 mg PO QPM 09/09/15 [History] Fluticasone/Salmeterol [Advair Hfa 115-21 Mcg Inhaler] 2 puff IH BID 09/09/15 [ History] Furosemide [Lasix] 20 mg PO QAM 09/09/15 [History] Lisinopril [Zestril] 20 mg PO QAM 09/09/15 [History] Montelukast [Singulair] 10 mg PO QPM 09/09/15 [History] clonazePAM [Klonopin] 0.5 mg PO 5XD PRN 09/09/15 [History] valACYclovir [Valtrex] 500 mg PO QPM 09/09/15 [History] Topiramate [Topamax] 50 mg PO BID 02/14/16 [History] Omeprazole [PriLOSEC] 40 mg PO DAILY #30 capsule. 04/22/16 [Rx] l-Norgest/E.estradiol-E.estrad [Ashlyna 0.15-0.03-0.01 mg Tab] 1 tab PO DAILY [History] Dicyclomine [Bentyl] 10 mg PO QID PRN #20 capsule 05/15/16 [Rx] Ascorbic Acid [Vitamin C] 500 mg PO DAILY 11/14/16 [History] Cholecalciferol (Vitamin D3) [Vitamin D3] 1,000 unit PO BID 11/14/16 [History] Magnesium Oxide [Mag-Ox] 400 mg PO BID 11/14/16 [History] Metformin HCl [Metformin HCl ER] 500 mg PO BID 11/14/16 [History] Pregabalin [Lyrica] 150 mg PO DAILY 11/14/16 [History] Ondansetron ODT [Zofran ODT] 4 mg SL Q6HR #20 tab.rapdis 04/17/17 [Rx] Aripiprazole [Abilify] 2.5 mg PO DAILY 04/18/17 [History] Asenapine Maleate [Saphris] 2.5 mg SL DAILY 04/18/17 [History] BuPROPion XL (24 HR) [Wellbutrin XL] 150 mg PO TID 04/18/17 [History] Budesonide [Entocort EC] 3 mg PO TID 04/18/17 [History] EPINEPHrine [Epipen] 0.3 mg IM ONCE PRN 04/18/17 [History] Ondansetron [Zofran] 8 mg PO BID PRN 04/18/17 [History] Gwy353/Iron Fumarate/FA/Dss [ 19 Tablet] 1 tab PO DAILY 04/18/17 [ History] Tizanidine HCl [Zanaflex] 4 mg PO TID 04/18/17 [History] Allergies gabapentin Allergy (Verified 03/16/17 14:28) Swelling of Lip/Tongue/Throat ziprasidone [From Geodon] Adverse Reaction (Verified 03/16/17 14:28) Agitated - Meds/Allergy Pre-op Review Medications Reviewed: Yes Allergies Reviewed: Yes Beta Blockers on Current Med List: No Anesthesia Results - Labs 04/19/17 03:32 04/19/17 03:32 Name: Meagan Flanagan Date of Study: 11/15/2016 Impressions: LVEF 65%. Normal left ventricular size and systolic function. There is evidence of mild diastolic dysfunction of the left ventricle. Normal right ventricular size and function. No significant valvular dysfunction. No pulmonary hypertension. 2014 Heart Cath showed EF 60%, no pulmonary hypertensio - Imaging EKG: report reviewed (SINUS RHYTHM WITH SHORT AK INTERVAL) Anesthesia Exam O2 Sat Weight 139.253 kg O2 Sat by Pulse Oximetry 97 O2 Sat by Pulse Oximetry 97 O2 Sat by Pulse Oximetry 96 O2 Sat by Pulse Oximetry 99 O2 Sat by Pulse Oximetry 96 O2 Sat by Pulse Oximetry 96 O2 Sat by Pulse Oximetry 94 Vital Signs Temp Pulse Resp BP Pulse Ox 99.2 F 89 14 135/76 97 04/17/17 15:30 04/17/17 15:30 04/17/17 15:30 04/17/17 15:30 04/17/17 15:30 Vital Signs/O2 Sat, Most Current Temp Pulse Resp BP Pulse Ox 97.7 F 61 16 124/59 97 04/19/17 11:35 04/19/17 11:35 04/19/17 11:35 04/19/17 11:35 04/19/17 11:35 - HEENT Pupil (Motor): Pupils equal, EOMI Mallampati: III Teeth: Normal Oral Opening: Greater than 3 - HIV COUNSELOR LOC: Oriented HIV COUNSELOR Motor: Normal RUE, Normal LUE, Normal RLE, Normal LLE, Normal Face HIV COUNSELOR Sensory: Normal: RUE, LUE, RLE, LLE, Face - Cardiac Rhythm: Regular Murmur: None JVD: No Carotid Bruit: No - Pulmonary Breath Sounds: bilateral Clear Respiratory Effort: Symmetrical Anesthesia Assess/Plan ASA Score: 4 Modified Sanjuanita Scale for Level of Consciousness: Cooperative, oriented, and tranquil Anesthetic Plan: MAC Autologous Blood: Yes Monitoring Plan: Standard Monitors Recovery Plan: Other
[2017-04-19] MEDS: BUDESONIDE 9 MG PO SCH (16:51)
[2017-04-19] MEDS: Diltiazem CD (24hr) 120 MG CAPSULE PO SCH (17:01)
--- NOTE | 2017-04-19 18:07 | Internal Med Progress Note ---
Date of Encounter: 04/19/17 Time of Encounter: 16:00 - Assessment and plan (1) Exacerbation of Crohn's disease Current Visit: Yes Status: Acute Assessment and plan: Noted to have abdominal cramps and intermittent diarrhea. Has been started on IV steroids for possible acute flareup of Crohn's disease. GI has been consulted, underwent colonoscopy today. Will follow-up report. Continue current management. Pain control with when necessary IV Dilaudid. Qualifiers: Digestive disease complication type: without complication Qualified Code(s) : K50.90 - Crohn's disease, unspecified, without complications (2) JUAN on CPAP Current Visit: Yes Status: Chronic (3) GERD (gastroesophageal reflux disease) Current Visit: Yes Status: Chronic Assessment and plan: Continue PPI. Qualifiers: Esophagitis presence: esophagitis presence not specified Qualified Code(s) : K21.9 - Gastro-esophageal reflux disease without esophagitis (4) Lumbar radiculopathy Current Visit: Yes Status: Chronic (5) COPD (chronic obstructive pulmonary disease) Current Visit: Yes Status: Chronic Assessment and plan: Not in acute exacerbation. Continue when necessary bronchodilators and supplemental oxygen as needed. Qualifiers: COPD type: chronic bronchitis Chronic bronchitis type: unspecified Qualified Code(s): J42 - Unspecified chronic bronchitis (6) Essential hypertension Current Visit: Yes Status: Chronic (7) Depression Current Visit: Yes Status: Chronic Qualifiers: Depression Type: unspecified Qualified Code(s): F32.9 - Major depressive disorder, single episode, unspecified - Subjective Interval history: Reports feeling slightly drowsy, just got back from Colonoscopy; no nausea, vomiting but feels hungry and has intermittent abdominal cramps; - Constitutional Vitals: Temp Pulse Resp BP Pulse Ox 97.7 F 69 18 117/71 95 04/19/17 15:22 04/19/17 15:22 04/19/17 15:22 04/19/17 15:22 04/19/17 15:22 General appearance: Present: A&O X 3, morbidly obese, no acute distress, answers questions appropriately - Respiratory Respiratory exam: Present: CTAB. Absent: accessory muscle use, rales, rhonchi, wheezes - Cardiovascular Cardiovascular exam: Present: RRR, +S1, +S2. Absent: diastolic murmur, gallop, rubs, systolic murmur - GI/Abdominal GI/Abdominal exam: Present: normal bowel sounds, soft, no peritoneal signs. Absent: distended, tenderness Internal Medicine: Result - Labs CBC & Chem 7: 04/20/17 03:49 04/19/17 03:32 Labs: Short CBC 04/19/17 Range/Units 03:32 WBC 15.1 H D (4.3-11.1) K/mcL Hgb 12.0 (11.5-15.4) g/dL Hct 37.5 (35.3-44.9) % Plt Count 324 (140-400) K/mcL BMP 04/19/17 03:32 Sodium 138 Potassium 4.7 H Chloride 108 Carbon Dioxide 24 BUN 9 Creatinine 0.85 Glucose 121 H Calcium 9.3 Consult Discharge Plan - Plan Instructions: Hyoscyamine (By mouth), Chronic Obstructive Pulmonary Disease (DC ) Additional Instructions: F/up with PCP in 1-2 weeks F/up with GI in 2 weeks Referrals: Daniel Whitney Jr, MD [Primary Care Provider] - 04/27/17 11:00 am Prescriptions: Hyoscyamine Sulfate [Anaspaz] 0.125 mg PO Q6H PRN #20 tab.rapdis PRN Reason: Pain
[2017-04-20] MEDS: MethylPREDNISolone 40 MG/ML VIAL IVP SCH (00:04)
[2017-04-20] MEDS: 0.9 % Sodium Chloride 1,000 ML IVC SCH (03:57)
[2017-04-20] MEDS: Ondansetron 4 MG/2 ML VIAL IVP PRN (03:58)
[2017-04-20 04:06] LABS: Basophils % 0.1 %; Hematocrit 39.7 % (35.3-44.9); Hemoglobin 12.5 g/dL (11.5-15.4); Immature Granulocytes % 0.3 % (0-4); Lymphocytes # 0.7 K/mcL (0.6-4.6); Lymphocytes % 7.4 %; Mean Corpuscular HGB Conc 31.5 g/dL (31.6-35.5); Mean Corpuscular Hemoglobin 30.7 pg (28.0-33.3); Mean Corpuscular Volume 97.5 fL (83.0-100.0); Monocytes # 0.1 K/mcL (0.0-1.3); Monocytes % 0.7 %; Neutrophils # 8.1 K/mcL (1.6-8.9); Platelet Count 323 K/mcL (140-400); Red Blood Count 4.07 M/mcL (3.82-4.97); Red Cell Distribution Width 13.3 % (11.5-14.5); Segmented Neutrophils % 91.5 %
[2017-04-20] MEDS: Pregabalin 75 MG CAPSULE PO SCH (08:02)
[2017-04-20] MEDS: FLUoxetine 20 MG CAPSULE PO SCH (08:02)
[2017-04-20] MEDS: BuPROPion XL (24 HR) 150 MG TABLET PO SCH (08:02)
[2017-04-20] MEDS: Lisinopril 20 MG TABLET PO SCH (08:03)
[2017-04-20] MEDS: Topiramate 25 MG TABLET PO SCH (08:03)
[2017-04-20] MEDS: Sucralfate 1 GM TABLET PO SCH ×2 (08:04→12:41)
[2017-04-20] MEDS: Insulin LISPRO 300 UNITS/3 ML VIAL SQ SCH ×2 (08:06→12:42)
[2017-04-20] MEDS: BUDESONIDE 9 MG PO SCH (08:06)
[2017-04-20] MEDS ORDERED: predniSONE 20 MG TABLET PO ONE (08:20)
[2017-04-20 11:21] VITALS: BP 125/67
[2017-04-20] MEDS ORDERED: BUDESONIDE 9 MG PO SCH (11:45)
--- NOTE | 2017-04-20 11:46 | Gastroenterology Progress Note ---
<Hermann Dowd - Last Filed: 04/20/17 11:44> Date of Encounter: 04/20/17 Time of Encounter: 10:30 - Assessment and plan (1) Colitis Current Visit: Yes Status: Acute Assessment and plan: Treated with Rifaximin in January for diarrhea which did not offer her any relief. She has failed Pentasa. Uceris denied by insurance. Budesonide prescribed 03/31. Bentyl helps with cramping. CT A/P with no evidence of IBD but did show diverticulosis. Colonoscopy appeared normal, no active colitis noted. Plan for capsule endoscopy as outpatient. Follow up with Dr. Willingham as outpatient. Start hyoscyamine every 6 hours. (2) GI bleed Current Visit: No Status: Acute Assessment and plan: Secondary to colitis. Hgb stable at 12.5. Continue to monitor CBC and transfuse PRBC as needed. Qualifiers: GI bleed type/associated pathology: unspecified gastrointestinal hemorrhage type Qualified Code(s): K92.2 - Gastrointestinal hemorrhage, unspecified - Time Spent With Patient Total time spent is greater than 50% in coordination of care (as documented) at patient's floor/unit and/or counseling patient: - Subjective Interval history: The patient reports feeling better this morning and is without acute complaint at this time. Colonoscopy completed yesterday. - Constitutional Vitals: Temp Pulse Resp BP Pulse Ox 98.2 F 70 16 125/67 97 04/20/17 11:21 04/20/17 11:21 04/20/17 11:21 04/20/17 11:21 04/20/17 11:21 General appearance: Present: cooperative, A&O X 3, no acute distress, answers questions appropriately - Head Head exam: Present: atraumatic, normocephalic - Eye Eye exam: Present: normal appearance, sclera anicteric - ENT ENT exam: Present: mucous membranes moist - Neck Neck exam general surgery: Present: normal inspection, trachea midline - Respiratory Respiratory exam: Present: CTAB - Cardiovascular Cardiovascular exam: Present: RRR, +S1, +S2 - GI/Abdominal GI/Abdominal exam: Present: normal bowel sounds, soft, tenderness (mild lower abdominal tenderness), no peritoneal signs. Absent: distended, firm, guarding - Rectal Rectal exam: Present: deferred - Extremities Exam Extremities exam: Present: warm - Neurological Exam Neurological exam: Present: no focal deficits - Psychiatric Psychiatric exam: Present: normal affect, normal mood - Skin Skin exam: Present: dry, intact, normal color, warm Results - Labs CBC & Chem 7: 04/20/17 03:49 04/19/17 03:32 Labs: Last Result ESR 104 mm/hr (0-15) H 04/17/17 16:45 Calcium 9.3 mg/dL (8.6-10.8) 04/19/17 03:32 Troponin I 0.00 ng/mL (0-0.03) 04/17/17 16:45 Entire Visit Hgb 12.5 g/dL (11.5-15.4) 04/20/17 03:49 Hct 39.7 % (35.3-44.9) 04/20/17 03:49 Total Bilirubin 0.4 mg/dL (0.2-1.2) 04/17/17 16:45 AST 28 Units/L (5-34) 04/17/17 16:45 ALT 34 Units/L (0-55) 04/17/17 16:45 Amylase 45 Units/L (25-125) 04/17/17 16:45 Lipase 18 Units/L (8-78) 04/17/17 16:45 - Impressions Impressions Abdomen/Pelvis CT 04/18/17 13:00 IMPRESSION: 1. No evidence of acute inflammatory bowel disease. 2. Diverticulosis. D/ / 04/18/2017 13:45:35 Jagdish Rhodes MD / earnold Interpreting Provider: Jagdish Rhodes MD Consult Discharge Plan - Plan Instructions: Hyoscyamine (By mouth), Chronic Obstructive Pulmonary Disease (DC ) Additional Instructions: F/up with PCP in 1-2 weeks F/up with GI in 2 weeks Referrals: Daniel Whitney Jr, MD [Primary Care Provider] - 04/27/17 11:00 am Prescriptions: Hyoscyamine Sulfate [Anaspaz] 0.125 mg PO Q6H PRN #20 tab.rapdis PRN Reason: Pain <Gul,Dede - Last Filed: 04/20/17 17:13> Date of Encounter: 04/20/17 Time of Encounter: 14:00 - Time Spent With Patient Total time spent is greater than 50% in coordination of care (as documented) at patient's floor/unit and/or counseling patient: - Constitutional Vitals: Temp Pulse Resp BP Pulse Ox 98.2 F 70 16 125/67 97 04/20/17 11:21 04/20/17 11:21 04/20/17 11:21 04/20/17 11:21 04/20/17 11:21 Results - Labs CBC & Chem 7: 04/20/17 03:49 04/19/17 03:32 Labs: Last Result ESR 104 mm/hr (0-15) H 04/17/17 16:45 Calcium 9.3 mg/dL (8.6-10.8) 04/19/17 03:32 Troponin I 0.00 ng/mL (0-0.03) 04/17/17 16:45 Entire Visit Hgb 12.5 g/dL (11.5-15.4) 04/20/17 03:49 Hct 39.7 % (35.3-44.9) 04/20/17 03:49 Total Bilirubin 0.4 mg/dL (0.2-1.2) 04/17/17 16:45 AST 28 Units/L (5-34) 04/17/17 16:45 ALT 34 Units/L (0-55) 04/17/17 16:45 Amylase 45 Units/L (25-125) 04/17/17 16:45 Lipase 18 Units/L (8-78) 04/17/17 16:45 - Impressions Impressions Abdomen/Pelvis CT 04/18/17 13:00 IMPRESSION: 1. No evidence of acute inflammatory bowel disease. 2. Diverticulosis. D/ / 04/18/2017 13:45:35 Jagdish Rhodes MD / [email or web address] Interpreting Provider: Jagdish Rhodes MD - Attending Attestation I examined this patient and my medical decision-making was reviewed with the Resident Physician. I agree with the documented findings, disposition and treatment plan as described except to the extent set forth below.
--- NOTE | 2017-04-20 14:51 | Discharge Summary ---
Date of Encounter: 04/20/17 Time of Encounter: 15:00 - Discharge Diagnosis (1) Inflammatory bowel disease Priority: Primary Status: Acute (2) Essential hypertension Priority: Secondary Status: Chronic (3) Depression Priority: Secondary Status: Chronic Qualifiers: Depression Type: unspecified Qualified Code(s): F32.9 - Major depressive disorder, single episode, unspecified (4) Asthma Priority: Secondary Status: Chronic Qualifiers: Asthma severity: mild intermittent Asthma complication type: uncomplicated Qualified Code(s): J45.20 - Mild intermittent asthma, uncomplicated (5) JUAN on CPAP Priority: Secondary Status: Chronic (6) GERD (gastroesophageal reflux disease) Priority: Secondary Status: Chronic Qualifiers: Esophagitis presence: esophagitis presence not specified Qualified Code(s) : K21.9 - Gastro-esophageal reflux disease without esophagitis (7) Lumbar radiculopathy Priority: Secondary Status: Chronic - Discharge Medications Prescriptions: Hyoscyamine Sulfate [Anaspaz] 0.125 mg PO Q6H PRN #20 tab.rapdis PRN Reason: Pain Home Medications: Albuterol Neb [Proventil Neb] 2.5 mg IH QID 09/09/15 [History] Albuterol Sulfate [Albuterol Inhaler] 2 puff IH Q4HR 09/09/15 [History] Cetirizine HCl [Zyrtec] 10 mg PO HS 09/09/15 [History] Diltiazem HCl [Diltiazem 24Hr Cd] 120 mg PO QPM 09/09/15 [History] Docusate [Colace] 100 mg PO QPM PRN 09/09/15 [History] FLUoxetine HCl [Prozac] 80 mg PO QAM 09/09/15 [History] Ferrous Sulfate 325 mg PO QPM 09/09/15 [History] Fluticasone/Salmeterol [Advair Hfa 115-21 Mcg Inhaler] 2 puff IH BID 09/09/15 [ History] Furosemide [Lasix] 20 mg PO QAM 09/09/15 [History] Lisinopril [Zestril] 20 mg PO QAM 09/09/15 [History] Montelukast [Singulair] 10 mg PO QPM 09/09/15 [History] clonazePAM [Klonopin] 0.5 mg PO 5XD PRN 09/09/15 [History] valACYclovir [Valtrex] 500 mg PO QPM 09/09/15 [History] Topiramate [Topamax] 50 mg PO BID 02/14/16 [History] Omeprazole [PriLOSEC] 40 mg PO DAILY #30 capsule. 04/22/16 [Rx] l-Norgest/E.estradiol-E.estrad [Ashlyna 0.15-0.03-0.01 mg Tab] 1 tab PO DAILY [History] Dicyclomine [Bentyl] 10 mg PO QID PRN #20 capsule 05/15/16 [Rx] Ascorbic Acid [Vitamin C] 500 mg PO DAILY 11/14/16 [History] Cholecalciferol (Vitamin D3) [Vitamin D3] 1,000 unit PO BID 11/14/16 [History] Magnesium Oxide [Mag-Ox] 400 mg PO BID 11/14/16 [History] Metformin HCl [Metformin HCl ER] 500 mg PO BID 11/14/16 [History] Pregabalin [Lyrica] 150 mg PO DAILY 11/14/16 [History] Ondansetron ODT [Zofran ODT] 4 mg SL Q6HR #20 tab.rapdis 04/17/17 [Rx] Aripiprazole [Abilify] 2.5 mg PO DAILY 04/18/17 [History] Asenapine Maleate [Saphris] 2.5 mg SL DAILY 04/18/17 [History] BuPROPion XL (24 HR) [Wellbutrin Xl] 150 mg PO TID 04/18/17 [History] Budesonide [Entocort EC] 3 mg PO TID 04/18/17 [History] EPINEPHrine [Epipen] 0.3 mg IM ONCE PRN 04/18/17 [History] Ondansetron [Zofran] 8 mg PO BID PRN 04/18/17 [History] [id number]/Iron Fumarate/FA/Dss [ 19 Tablet] 1 tab PO DAILY 04/18/17 [ History] Tizanidine HCl [Zanaflex] 4 mg PO TID 04/18/17 [History] Hyoscyamine Sulfate [Anaspaz] 0.125 mg PO Q6H PRN #20 tab.rapdis 04/20/17 [Rx] Patient Taking Own Medication 0 each PO DAILY each 04/20/17 [Rx] Allergies/Adverse Reactions: Allergies gabapentin Allergy (Verified 03/16/17 14:28) Swelling of Lip/Tongue/Throat ziprasidone [From Geodon] Adverse Reaction (Verified 03/16/17 14:28) Agitated Procedures/tests Complete & Pending: Procedures Performed prior 72 hours Category Date Time Status CT abd pelvis w iv and oral [CT] Routine Cat Scan 04/18/17 13:00 Completed Date of admission: 04/17/17 19:56 Primary care physician: Daniel Whitney Jr, MD Consults: 04/17/17 20:01 Consult to Gastroenterology [CONS] Routine Consulting Provider: Gastroenterology Denise Reason for Consult: crohns , patient referred by Dr King Call Completed: Yes Discharging clinician: Saadia Burks Anticipated date of discharge: 04/20/17 - Patient Status Disposition: Home, Self-Care Condition: Fair Functional capacity at discharge: independent ambulation Overall status at discharge: patient is progressing back to baseline - Discharge Instructions Instructions: Hyoscyamine (By mouth), Chronic Obstructive Pulmonary Disease (DC ) Follow Up With: Daniel Whitney Jr, MD [Primary Care Provider] - 04/27/17 11:00 am Additional Instructions: F/up with PCP in 1-2 weeks F/up with GI in 2 weeks - Diet and Activity Activity: resume usual activities as tolerated Diet: diabetic diet, low fat, low cholesterol, low salt diet Hospital course: Ms. Flanagan is a 41 year old female with the above medical problems, who was admitted with abdominal cramps and diarrhea. She has biopsy-proven Crohn's disease and has failed multiple outpatient regimens and she does follow with gastroenterology. CT abdomen/pelvis showed no acute abnormality. SHe was started on IV steroids for possible acute flare up of Crohn's disease. GI was consulted and patient underwent Colonoscopy which showed no e/o- colitis or bleeding. SHe is tolerating oral diet currently and is medically stable for discharge. Steroids are discontinued and abdominal cramps are controlled with anticholinergics. She is medically stable for discharge with outpatient GI follow-up. - Time Spent with Patient Total time spent providing and/or coordinating discharge services: Greater than 30 minutes (40 min) - Constitutional Vitals: Temp Pulse Resp BP Pulse Ox 98.2 F 70 16 125/67 97 04/20/17 11:21 04/20/17 11:21 04/20/17 11:21 04/20/17 11:21 04/20/17 11:21 General appearance: Present: A&O X 3, morbidly obese, no acute distress - Cardiovascular Cardiovascular exam: Present: RRR, +S1, +S2. Absent: diastolic murmur, gallop, rubs, systolic murmur - GI/Abdominal GI/Abdominal exam: Present: normal bowel sounds, soft (tenderness in lower abdomen), no peritoneal signs. Absent: distended, tenderness
[2017-04-20] MEDS ORDERED: *HR* OxyCODONE/APAP 5/325 TABLET PO ONE (15:46)
== END 2017-04-20 17:14 | disposition home or self-care (01) | DRG 245 ==
LOC: EMEROO 15:30 → 3BNU 15:30 → SUATTDRO 19:56
PROVIDERS: ADMIT Hospitalist; ATTEND Internal Medicine

== ENCOUNTER 2017-06-17 10:07 | Inpatient (IN) ==
[2017-06-17] MEDS ORDERED: Ondansetron 4 MG/2 ML VIAL IVP ONE (10:31)
[2017-06-17] MEDS ORDERED: 0.9 % Sodium Chloride 1,000 ML IVC ONE (10:31)
[2017-06-17] MEDS ORDERED: *HR* HYDROmorphone (PF) 1 MG/ML SYRINGE IVP ONE ×2 (10:31→13:14)
[2017-06-17 10:57] LABS: Basophils # 0.1 K/mcL (0.0-0.2); Basophils % 0.4 %; Eosinophils # 0.1 K/mcL (0.0-0.6); Eosinophils % 0.4 %; Hematocrit 41.2 % (35.3-44.9); Hemoglobin 13.7 g/dL (11.5-15.4); Immature Granulocytes % 0.5 % (0-4); Lymphocytes # 2.8 K/mcL (0.6-4.6); Lymphocytes % 19.7 %; Mean Corpuscular HGB Conc 33.3 g/dL (31.6-35.5); Mean Corpuscular Hemoglobin 31.7 pg (28.0-33.3); Mean Corpuscular Volume 95.4 fL (83.0-100.0); Mean Platelet Volume 10.6 fL (9.4-12.4); Monocytes # 0.8 K/mcL (0.0-1.3); Monocytes % 5.9 %; Neutrophils # 10.3 K/mcL (1.6-8.9); Platelet Count 258 K/mcL (140-400); Red Blood Count 4.32 M/mcL (3.82-4.97); Red Cell Distribution Width 13.2 % (11.5-14.5); Segmented Neutrophils % 73.1 %
--- NOTE | 2017-06-17 10:58 | Emergency Department Note ---
Disposition Clinical Impression: Nausea Abdominal pain Qualifiers: Abdominal location: lower abdomen, unspecified Qualified Code(s): R10.30 - Lower abdominal pain, unspecified Disposition: Admitted As Inpatient Condition: Good Abdominal Pain HPI - General Chief Complaint: ED Abdominal Pain Stated Complaint: "crohns flare up" Time Seen by Provider: 06/17/17 10:25 Source: patient, family Mode of arrival: private vehicle Limitations: no limitations Nursing Notes Reviewed: Yes Vital Signs Reviewed: Yes - History of Present Illness HPI Narrative: 41-year-old female history of suspected Crohn's disease followed by gastroenterology who presents to the ER due to nausea, fatigue, abdominal pain. Patient was recently admitted and discharged from the hospital after a Crohn' s flare. She was discharged on 06/06/17. She states her symptoms have not improved since discharge. She was seen by her family provider on Tuesday and was encouraged to come to the hospital but did not. She states that she was discharged with prednisone but she is unable to take it due to side effects and has not. She is currently waiting on her insurance to allow her to try a new medication for her Crohn's but has been unable to take it yet. She reports nausea and decreased appetite. She is having lower abdominal pain which is usual for her Crohn's flare. Denies any vomiting. Has had loose stools but no grossly bloody stools. No dysuria or hematuria. No other complaints. Pt Subjective Complaint: abdominal pain, other (Nausea) Onset (ago): day(s) Consistency: constant Location: LLQ, RLQ Pain Severity: moderate Pain Scale: 8 Quality: stabbing Radiation: none Migration to: no migration Improves with: nothing Worsens with: nothing Context: history of similar episodes Associated symptoms: Reports: nausea. Denies: vomiting, diarrhea, fever, constipation, dysuria Treatments prior to arrival: none - Related Data Home Medications Medication Instructions Recorded Confirmed Albuterol Neb [Proventil Neb] 2.5 mg IH QID 09/09/15 06/17/17 Albuterol Sulfate [Albuterol 2 puff IH Q4HR 09/09/15 06/17/17 Inhaler] Cetirizine HCl [Zyrtec] 10 mg PO HS 09/09/15 06/17/17 Diltiazem HCl [Diltiazem 24Hr Cd] 120 mg PO QPM 09/09/15 06/17/17 Docusate [Colace] 100 mg PO QPM PRN 09/09/15 06/17/17 FLUoxetine HCl [Prozac] 80 mg PO QAM 09/09/15 06/17/17 Ferrous Sulfate 325 mg PO QPM 09/09/15 06/17/17 Fluticasone/Salmeterol [Advair Hfa 2 puff IH BID 09/09/15 06/17/17 115-21 Mcg Inhaler] Furosemide [Lasix] 20 mg PO QAM 09/09/15 06/17/17 Lisinopril [Zestril] 20 mg PO QAM 09/09/15 06/17/17 Montelukast [Singulair] 10 mg PO QPM 09/09/15 06/17/17 clonazePAM [Klonopin] 0.5 mg PO TID PRN 09/09/15 06/17/17 valACYclovir [Valtrex] 500 mg PO HS 09/09/15 06/17/17 Topiramate [Topamax] 50 mg PO BID 02/14/16 06/17/17 l-Norgest/E.estradiol-E.estrad 1 tab PO DAILY 05/13/16 06/17/17 [Ashlyna 0.15-0.03-0.01 mg Tab] Ascorbic Acid [Vitamin C] 500 mg PO DAILY 11/14/16 06/17/17 Cholecalciferol (Vitamin D3) 1,000 unit PO BID 11/14/16 06/17/17 [Vitamin D3] Magnesium Oxide [Mag-Ox] 400 mg PO BID 11/14/16 06/17/17 Metformin HCl [Metformin HCl ER] 1,000 mg PO DAILY 11/14/16 06/17/17 Pregabalin [Lyrica] 150 mg PO HS 11/14/16 06/17/17 BuPROPion XL (24 HR) [Wellbutrin 450 mg PO DAILY 04/18/17 06/17/17 Xl] Budesonide [Entocort EC] 3 mg PO TID 04/18/17 06/17/17 EPINEPHrine [Epipen] 0.3 mg IM ONCE PRN 04/18/17 06/17/17 Ondansetron [Zofran] 8 mg PO BID PRN 04/18/17 06/17/17 Yin039/Iron Fumarate/FA/Dss 1 tab PO DAILY 04/18/17 06/17/17 [ 19 Tablet] Tizanidine HCl [Zanaflex] 4 mg PO TID 04/18/17 06/17/17 Amitriptyline [Elavil] 25 mg PO HS 05/12/17 06/17/17 Trazodone HCl 100 mg PO HS 05/12/17 06/17/17 hydrOXYzine pamoate [HydrOXYzine 25 mg PO TID 05/12/17 06/17/17 Pamoate] Azelastine 0.1% Nasal Peggs 1 spray NS DAILY 06/02/17 06/17/17 [Astelin] Dicyclomine [Bentyl] 10 mg PO QID PRN 06/02/17 06/17/17 Fluticasone Propionate Nasal 50 mcg NS BID 06/02/17 06/17/17 [Flonase] Indomethacin [Indocin] 50 mg PO TIDWM 06/02/17 06/17/17 Ketotifen Fumarate [Zaditor] 1 drop OP DAILY 06/02/17 06/17/17 Multivits Min/Iron/FA/Herb#186 1 each PO DAILY 06/02/17 06/17/17 [Hair, Skin and Nails Caplet] Ranitidine HCl [Zantac] 150 mg PO BID 06/02/17 06/17/17 SUMAtriptan Succinate [Imitrex] 100 mg PO DAILY PRN 06/02/17 06/17/17 Previous Rx's Medication Instructions Recorded Omeprazole [PriLOSEC] 40 mg PO DAILY #30 capsule. 04/22/16 Hyoscyamine Sulfate [Anaspaz] 0.125 mg PO Q6H PRN #20 tab.rapdis 04/20/17 Calcium Carbonate [Tums] 1,000 mg PO TID PRN 05/15/17 Promethazine [Phenergan] 25 mg PO Q6HR PRN #30 tablet 05/15/17 Simethicone [Gas-X] 80 mg PO TID PRN 05/15/17 Acetaminophen [Tylenol] 650 mg PO Q6HR PRN tablet 06/06/17 HYDROcodone/Acet 5/325 mg [Zirconia 1 tab PO Q6H PRN #9 tablet 06/06/17 5-325 mg] Allergies Allergy/AdvReac Type Severity Reaction Status Date / Time gabapentin Allergy Swelling Verified 06/02/17 13:38 of Lip/Tongue/Throat prednisone Allergy Difficulty Verified 06/02/17 13:38 Breathing ziprasidone [From Geodon] AdvReac Agitated Verified 06/02/17 13:38 All systems ED: reviewed and negative except as stated. Constitutional: Denies: fever Cardiovascular: Denies: chest pain Respiratory: Denies: dyspnea Gastrointestinal: Reports: abdominal pain, nausea. Denies: vomiting, diarrhea, melena, hematochezia Genitourinary: Denies: dysuria, hematuria Abdominal Pain PMH - Past Medical History Medical history: Reports: arthritis, asthma, COPD, diabetes, GERD, hypertension , migraine, other Female Surgical History: Reports: Adenoidectomy, knee replacement, Tonsillectomy , other BILINGUAL HR GENERALIST history: Reports: bilateral tubal ligation Psychiatric history: Reports: bipolar, depression - Social History Smoking status: Never smoker Alcohol use: Reports: none Drug use: Reports: none Physical Exam - General Limitations: no limitations General appearance: alert, in no apparent distress - Head Head exam: atraumatic, normocephalic, normal inspection - Eye Eye exam: Present: normal appearance, EOMI - ENT ENT exam: normal exam - Neck Neck exam: Present: normal inspection, full ROM - Chest Chest inspection: Present: normal inspection, symmetric chest wall rise - Respiratory Respiratory exam: Present: normal lung sounds bilaterally - Cardiovascular Cardiovascular exam: Present: regular rate, normal rhythm, normal heart sounds - Abdominal Exam Abdominal exam: Present: soft, tenderness (Moderate tenderness to palpation in the left lower and right lower quadrant without rebound rigidity or guarding.) - Extremities Exam Extremities exam: Present: normal inspection, full ROM - Expanded Upper Extremity Exam Shoulder exam: Present: normal inspection, full ROM Arm exam: Present: normal inspection, full ROM Elbow exam: Present: normal inspection, full ROM Forearm/Wrist exam: Present: normal inspection, full ROM Hand exam: Present: normal inspection, full ROM - Expanded Lower Extremity Exam Hip/Pelvis exam: Present: normal inspection, full ROM Upper leg exam: Present: normal inspection, full ROM Knee exam: Present: normal inspection, full ROM Lower leg exam: Present: normal inspection, full ROM Ankle exam: Present: normal inspection, full ROM Foot/toe exam: Present: normal inspection, full ROM Neurovascular/Tendon exam: Absent: motor deficit, sensory deficit - Neurological Exam Neurological exam: Present: alert, other (GCS 15. Nonfocal neurologic exam. Moves oximetries equally.) - Psychiatric Psychiatric exam: Present: normal affect, normal mood - Skin Skin exam: Present: warm, dry, intact, normal color Course Course Narrative: Patient seen and examined. Nonsurgical abdominal exam. I reviewed the patient' s recent admission. She reports that she will see her neurologist on Tuesday but was unable to take it until then. We will check some labs and urine and provide her with analgesics and IV fluids here. We will likely discuss with GI once labs are resulted. - Reevaluation(s) Reevaluation #1: Currently awaiting for GI. Time: 11:58 Reevaluation #2: Spoke with the patient in regards to me talking with gastroenterology. She is agreement with coming into the hospital. - Consultations Consultation #1: I spoke with the on-call construction flagger nurse practitioner. Discussed the patient's history labs and interventions. They agree with Cipro Flagyl and starting IV steroids and will see the patient in consultation. Vital Signs Temperature 98.2 F 06/17/17 10:11 Pulse Rate 95 06/17/17 10:11 Respiratory Rate 18 06/17/17 10:11 Blood Pressure 107/64 06/17/17 10:11 O2 Sat by Pulse Oximetry 99 06/17/17 10:11 Temperature 98.2 F 06/17/17 10:11 Pulse Rate 88 06/17/17 12:59 Respiratory Rate 18 06/17/17 12:59 Blood Pressure 113/63 06/17/17 12:59 O2 Sat by Pulse Oximetry 98 06/17/17 12:59 Oxygen Delivery Oxygen Delivery Room Air Abdominal Pain - MDM Narrative Medical decision making narrative: 41-year-old female presents to the ER due to abdominal pain nausea and decreased appetite. Extensive history of Crohn's disease followed by gastroenterology. Recently admitted roughly 10 days ago under similar circumstances. Unable to take her steroids at home. Patient has a slight elevation in her white count and creatinine here. Case discussed with gastroenterology who will see the patient in consult. Patient given Cipro and Flagyl here. Stable for admission to the hospitalist service. - Medical Records Medical records reviewed: Yes I reviewed the patient's medical records. - Lab Data Lab results reviewed: Yes I reviewed the patient's lab results. Result diagrams: 06/17/17 10:53 06/17/17 10:53 Lab Results 06/17/17 06/17/17 06/17/17 Range/Units 10:53 10:53 10:53 WBC 14.1 H (4.3-11.1) K/mcL RBC 4.32 (3.82-4.97) M/mcL Hgb 13.7 (11.5-15.4) g/dL Hct 41.2 (35.3-44.9) % MCV 95.4 (83.0-100.0) fL MCH 31.7 (28.0-33.3) pg MCHC 33.3 (31.6-35.5) g/dL RDW 13.2 (11.5-14.5) % Plt Count 258 (140-400) K/mcL MPV 10.6 (9.4-12.4) fL Immature Gran % 0.5 (0-4) % Seg Neutrophils % 73.1 % Lymphocytes % 19.7 % Monocytes % 5.9 % Eosinophils % 0.4 % Basophils % 0.4 % Neutrophils # 10.3 H (1.6-8.9) K/mcL Lymphocytes # 2.8 (0.6-4.6) K/mcL Monocytes # 0.8 (0.0-1.3) K/mcL Eosinophils # 0.1 (0.0-0.6) K/mcL Basophils # 0.1 (0.0-0.2) K/mcL Sodium 136 (136-145) mEq/L Potassium 4.4 (3.5-4.5) mEq/L Chloride 107 (98-109) mEq/L Carbon Dioxide 20 (19-29) mEq/L BUN 13 (7-20) mg/dL Creatinine 1.14 H (0.57-1.11) mg/dL Est GFR ( Amer) > 60 (> 60) Est GFR (Non-Af Amer) 53 L (> 60) BUN/Creatinine Ratio 11 (6-26) Glucose 118 H (70-99) mg/dL Calculated Osmolality 283 (280-300) Lactic Acid 1.4 (0.5-2.2) mmol/L Calcium 9.7 (8.6-10.8) mg/dL Total Bilirubin 0.6 (0.2-1.2) mg/dL Direct Bilirubin 0.3 (0.0-0.5) mg/dL Indirect Bilirubin 0.3 (0.0-1.2) mg/dL AST 29 (5-34) Units/L ALT 45 (0-55) Units/L Alkaline Phosphatase 60 (38-126) Units/L Serum Total Protein 7.4 (6.0-8.3) g/dL Albumin 3.4 L (3.5-5.0) g/dL Globulin 4.0 H (2.4-3.5) g/dL Albumin/Globulin Ratio 0.9 L (1.1-2.2) Amylase 43 (25-125) Units/L Lipase 26 (8-78) Units/L Urine Color (Yellow) Urine Clarity (Clear) Urine pH (5.0-8.0) pH Units Ur Specific [place] (1.010-1.025) Urine Protein (Neg-Trace) mg/dL Urine Glucose (UA) (Normal) mg/dL Urine Ketones (Negative) mg/dL Urine Blood (Negative) Urine Nitrite (Negative) Urine Bilirubin (Negative) Urine Urobilinogen (Normal) mg/dL Ur Leukocyte Esterase (Negative) Ur Culture Indicated? (NO) 06/17/17 Range/Units 11:46 WBC (4.3-11.1) K/mcL RBC (3.82-4.97) M/mcL Hgb (11.5-15.4) g/dL Hct (35.3-44.9) % MCV (83.0-100.0) fL MCH (28.0-33.3) pg MCHC (31.6-35.5) g/dL RDW (11.5-14.5) % Plt Count (140-400) K/mcL MPV (9.4-12.4) fL Immature Gran % (0-4) % Seg Neutrophils % % Lymphocytes % % Monocytes % % Eosinophils % % Basophils % % Neutrophils # (1.6-8.9) K/mcL Lymphocytes # (0.6-4.6) K/mcL Monocytes # (0.0-1.3) K/mcL Eosinophils # (0.0-0.6) K/mcL Basophils # (0.0-0.2) K/mcL Sodium (136-145) mEq/L Potassium (3.5-4.5) mEq/L Chloride (98-109) mEq/L Carbon Dioxide (19-29) mEq/L BUN (7-20) mg/dL Creatinine (0.57-1.11) mg/dL Est GFR ( Amer) (> 60) Est GFR (Non-Af Amer) (> 60) BUN/Creatinine Ratio (6-26) Glucose (70-99) mg/dL Calculated Osmolality (280-300) Lactic Acid (0.5-2.2) mmol/L Calcium (8.6-10.8) mg/dL Total Bilirubin (0.2-1.2) mg/dL Direct Bilirubin (0.0-0.5) mg/dL Indirect Bilirubin (0.0-1.2) mg/dL AST (5-34) Units/L ALT (0-55) Units/L Alkaline Phosphatase (38-126) Units/L Serum Total Protein (6.0-8.3) g/dL Albumin (3.5-5.0) g/dL Globulin (2.4-3.5) g/dL Albumin/Globulin Ratio (1.1-2.2) Amylase (25-125) Units/L Lipase (8-78) Units/L Urine Color Yellow (Yellow) Urine Clarity Clear (Clear) Urine pH 6.0 (5.0-8.0) pH Units Ur Specific [place] 1.011 (1.010-1.025) Urine Protein Negative (Neg-Trace) mg/dL Urine Glucose (UA) Normal (Normal) mg/dL Urine Ketones Negative (Negative) mg/dL Urine Blood Negative (Negative) Urine Nitrite Negative (Negative) Urine Bilirubin Negative (Negative) Urine Urobilinogen Normal (Normal) mg/dL Ur Leukocyte Esterase Negative (Negative) Ur Culture Indicated? NO (NO) S.B.A.R. - S.B.A.R. Situation: Demographics, MOA Background: Presenting Complaint, Relevant PMH, Meds, & Allergies Assessment: Vital Signs, Course and respsone to treatment, Exam Concerns, Patient/Family Expectation, Pertinant Lab Results, Outstanding Labs Recommendation: Barrier(s) to disposition, Recommendation based on pending studies, treatments, or consults S.B.A.R. Report Given to: Dr. Juan Clarke Repor Time: 13:03
--- NOTE | 2017-06-17 11:03 | Emergency Department Note ---
START Narrative - START START: I examined this patient and my medical decision-making was reviewed with the PROJECT MANAGEMENT SPECIALIST/PA/Advanced Practice Nurse/Resident Physician. I agree with the documented findings, disposition and treatment plan as described except to the extent set forth below. ED attending: Patient's emergency medicine resident Dr. WHITFIELD. Please see copy of this note for H&P evaluation and management and ED disposition. We both had independent [id number] time in contact with this patient. Briefly 5-year-old female presents ambulatory with her father history of Crohn' s disease follow-up by Dr. AMADOR from gastroenterology. Was admitted approximately 10 days ago and treated inpatient with IV fluid steroids and evaluation. Patient states that she has been having fatigue feeling orthostatic abdominal pain and loose stools she says shows has blood in her stool and very fatigued. An IV fluids anti-medics medicine for pain patient will get laboratories and then we will consult with GI. Disposition pending.
[2017-06-17 11:11] LABS: Alanine Aminotransferase 45 Units/L (0-55); Albumin 3.4 g/dL (3.5-5.0); Albumin/Globulin Ratio 0.9 (1.1-2.2); Alkaline Phosphatase 60 Units/L (38-126); Amylase 43 Units/L (25-125); Aspartate Amino Transferase 29 Units/L (5-34); BUN/Creatinine Ratio 11 (6-26); Bilirubin,Direct 0.3 mg/dL (0.0-0.5); Bilirubin,Indirect 0.3 mg/dL (0.0-1.2); Bilirubin,Total 0.6 mg/dL (0.2-1.2); Blood Urea Nitrogen 13 mg/dL (7-20); Calcium 9.7 mg/dL (8.6-10.8); Carbon Dioxide 20 mEq/L (19-29); Chloride 107 mEq/L (98-109); Glucose 118 mg/dL (70-99); Lipase 26 Units/L (8-78); Osmolality,Calculated 283 (280-300); Potassium 4.4 mEq/L (3.5-4.5); Sodium 136 mEq/L (136-145); Total Protein 7.4 g/dL (6.0-8.3); eGFR For African Americans > 60 (> 60); eGFR For Non-African Americans 53 (> 60)
[2017-06-17 12:05] LABS: Bilirubin,Urine Negative (Negative); Blood,Urine Negative (Negative); Clarity,Urine Clear (Clear); Color,Urine Yellow (Yellow); Glucose,Urine (UA) Normal (Normal); Ketones,Urine Negative (Negative); Leukocyte Esterase,Urine Negative (Negative); Nitrite,Urine Negative (Negative); Protein,Urine Negative (Neg-Trace); Specific Gravity,Urine 1.011 (1.010-1.025); Urobilinogen,Urine Normal (Normal)
[2017-06-17] MEDS ORDERED: MetroNIDAZOLE 500 MG/100 ML 500 MG/100 ML BAG IVPB ONE (12:18)
[2017-06-17] MEDS ORDERED: *HR* HYDROmorphone (PF) 1 MG/ML SYRINGE ONE (13:16)
--- NOTE | 2017-06-17 14:26 | Event Note ---
Date of Encounter: 06/17/17 Time of Encounter: 14:24 Patients examined with nurse practitioner. Patient was recently discharged from the hospital after cross flare has not taken her steroids because she cannot tolerate it. Follow gastroenterology recommendations in the form of steroids ciprofloxacin Flagyl and hydration for chron's flare
[2017-06-17] MEDS ORDERED: *HR* Promethazine 25 MG/ML VIAL IVP PRN (14:57)
[2017-06-17] MEDS ORDERED: *HR* HYDROmorphone 2 MG/ML SYRINGE IVP PRN (14:57)
[2017-06-17] MEDS ORDERED: SUMAtriptan succinate 50 MG TABLET PO PRN (14:58)
[2017-06-17] MEDS ORDERED: Simethicone 80 MG TAB.CHEW PO PRN (14:58)
[2017-06-17] MEDS ORDERED: Hyoscyamine SL 0.125 MG TAB.SUBL PO PRN (14:58)
[2017-06-17] MEDS ORDERED: clonazePAM 1 MG TABLET PO PRN (14:58)
--- NOTE | 2017-06-17 15:37 | Internal Med History&Physical ---
Date of Encounter: 06/17/17 Time of Encounter: 15:28 Assessment and Plan (1) Crohn's colitis Current visit: Yes Status: Acute H/o Crohn's, reporting diffuse abdominal pain, nausea, and soft stools after every meal. GI consulted and recommends starting Ciprofloxacin, Flagyl and IV Steroids as the pain is caused by a Crohns flare. Awaiting for additional recommendations following GI assessment. IVF 09% NS AT 100ML/HR Manage pain with Dilaudid and [place] Manage nausea with phenergan Start solumedrol 40mg Q8hr, Benadryl for solumedrol related pruritis Cipro and Flagyl as recommended per GI ESR, CRP, CBC, BMP in the morning Qualifiers: Digestive disease complication type: other complication Qualified Code(s): K50.118 - Crohn's disease of large intestine with other complication (2) Abdominal pain Current visit: Yes Status: Chronic H/o Crohn's, reporting diffuse continuous abdominal pain and soft stools after every meal. Manage pain with Dilaudid 1mg Q4hrs PRN for severe pain, Norco5/ 325 Q6 PRN. Qualifiers: Abdominal location: lower abdomen, unspecified Qualified Code(s): R10.30 - Lower abdominal pain, unspecified (3) Nausea Current visit: Yes Status: Acute Reports Zofran no longer working for nausea. Start Phenergen 12.5mg IVP Q6hrs PRN. (4) Asthma Current visit: Yes Status: Chronic Stable, currently in no respiratory distress. Resume albuterol nebulier, advair , singulair. Qualifiers: Asthma severity: mild intermittent Asthma complication type: uncomplicated Qualified Code(s): J45.20 - Mild intermittent asthma, uncomplicated (5) GERD (gastroesophageal reflux disease) Current visit: Yes Status: Chronic Continues to have intermittent acid reflux. Continue H-2 and PPI. Qualifiers: Esophagitis presence: esophagitis presence not specified Qualified Code(s) : K21.9 - Gastro-esophageal reflux disease without esophagitis (6) COPD (chronic obstructive pulmonary disease) Current visit: Yes Status: Chronic Stable and without any respiratory distress. See plan above. Qualifiers: COPD type: chronic bronchitis Chronic bronchitis type: simple Qualified Code(s): J41.0 - Simple chronic bronchitis (7) Essential hypertension Current visit: Yes Status: Chronic Hemodynamically stable, appears to be in no distress. Takes CCB and TERRY, i will continue these medications. (8) Diabetes Current visit: Yes Status: Chronic h/o DM II, BG 118 per metabolic panel. Takes metformin at home will stop it for now as it can also contribute to diarrhea. Start LSSIC with AC/HS accuchecks. Qualifiers: Diabetes mellitus type: type 2 Diabetes mellitus complication status: with hyperglycemia Diabetes mellitus snf insulin use: without snf use Qualified Code(s): E11.65 - Type 2 diabetes mellitus with hyperglycemia (9) DVT prophylaxis Current visit: No Status: Acute Mechanical DVT prophylaxis as she has a h/o crohns and reports intermittent hematochezia during flares. (10) Morbid obesity with BMI of 50.0-59.9, adult Current visit: Yes Status: Chronic Internal Medicine - H&P: HPI Chief complaint: nausea, fatigue, diffuse abdominal pain secondary to crohns flare Admitted From: Home Plans for Post Hospital Care: Home History of present illness: Ms. Flanagan is a 41 year old female with PMH of arthritis, asthma, COPD, DM, GERD , HTN, migraines, and Crohn's regions [facility] with ongoing nausea, fatigue, abdominal pain for the last 4-5 days. Was recently discharged from [facility] for a Crohn's flare on 06/06/17. At that time she was discharged on prednisone however she refuses to take as it causes swelling and difficulty breathing .The patient reports that she has had four Crohn's flares within the last year. Was previously on Uceris mentions that while on occasion she had no flares. She presents today with what appears to be an additional flare-up of Crohn's. She endorses a decrease in appetite, fatigue, nausea, chronic hematochezia, abdominal pain and soft BM's after each meal. Denies any fevers, weight-loss, vomiting. Dr. Willnigham was consulted in the ED recommended the patient be placed on Cipro and Flagyl as well as IV steroids. Continues to endorse diffuse abdominal pain and nausea, reports that Zofran is no longer helping. Ports that pain was 10 out of 10 and ED but Dilauded was able to make her comfortable. CBC reveals a WBC of 14.1, CMP unremarkable. She is being admitted to manage Crohn's flare with antibiotics and steroids. Past Med Surg Social Fam HX - Past Medical History Medical history: arthritis, asthma, COPD, diabetes, GERD, hypertension, migraine , other Psychiatric history: bipolar, depression - Past Surgical History Surgical History: knee replacement - Social History Smoking Status: Never smoker Smokeless Tobacco Status: No Alcohol use: none Drug use: none - Family History Father Hx Family Cardiac Disorders: Yes (CABG at age 54) Hx Family Respiratory Disorders: Yes Hx Family Cancer: Yes Maternal Living Status: Hx Family Cardiac Disorders: No Hx Family Respiratory Disorders: Yes Hx Family Cancer: Yes Hx Family GI Disorders: No Hx Family Endocrine Disorder: No Internal Medicine - H&P: Meds Albuterol Neb [Proventil Neb] 2.5 mg IH QID 09/09/15 [History] Albuterol Sulfate [Albuterol Inhaler] 2 puff IH Q4HR 09/09/15 [History] Cetirizine HCl [Zyrtec] 10 mg PO HS 09/09/15 [History] Diltiazem HCl [Diltiazem 24Hr Cd] 120 mg PO QPM 09/09/15 [History] Docusate [Colace] 100 mg PO QPM PRN 09/09/15 [History] FLUoxetine HCl [Prozac] 80 mg PO QAM 09/09/15 [History] Ferrous Sulfate 325 mg PO QPM 09/09/15 [History] Fluticasone/Salmeterol [Advair Hfa 115-21 Mcg Inhaler] 2 puff IH BID 09/09/15 [ History] Furosemide [Lasix] 20 mg PO QAM 09/09/15 [History] Lisinopril [Zestril] 20 mg PO QAM 09/09/15 [History] Montelukast [Singulair] 10 mg PO QPM 09/09/15 [History] clonazePAM [Klonopin] 0.5 mg PO TID PRN 09/09/15 [History] valACYclovir [Valtrex] 500 mg PO HS 09/09/15 [History] Topiramate [Topamax] 50 mg PO BID 02/14/16 [History] Omeprazole [PriLOSEC] 40 mg PO DAILY #30 capsule. 04/22/16 [Rx] l-Norgest/E.estradiol-E.estrad [Ashlyna 0.15-0.03-0.01 mg Tab] 1 tab PO DAILY [History] Ascorbic Acid [Vitamin C] 500 mg PO DAILY 11/14/16 [History] Cholecalciferol (Vitamin D3) [Vitamin D3] 1,000 unit PO BID 11/14/16 [History] Magnesium Oxide [Mag-Ox] 400 mg PO BID 11/14/16 [History] Metformin HCl [Metformin HCl ER] 1,000 mg PO DAILY 11/14/16 [History] Pregabalin [Lyrica] 150 mg PO HS 11/14/16 [History] BuPROPion XL (24 HR) [Wellbutrin Xl] 450 mg PO DAILY 04/18/17 [History] Budesonide [Entocort EC] 3 mg PO TID 04/18/17 [History] EPINEPHrine [Epipen] 0.3 mg IM ONCE PRN 04/18/17 [History] Ondansetron [Zofran] 8 mg PO BID PRN 04/18/17 [History] Uah828/Iron Fumarate/FA/Dss [ 19 Tablet] 1 tab PO DAILY 04/18/17 [ History] Tizanidine HCl [Zanaflex] 4 mg PO TID 04/18/17 [History] Hyoscyamine Sulfate [Anaspaz] 0.125 mg PO Q6H PRN #20 tab.rapdis 04/20/17 [Rx] Amitriptyline [Elavil] 25 mg PO HS 05/12/17 [History] Trazodone HCl 100 mg PO HS 05/12/17 [History] hydrOXYzine pamoate [HydrOXYzine Pamoate] 25 mg PO TID 05/12/17 [History] Calcium Carbonate [Tums] 1,000 mg PO TID PRN 05/15/17 [Rx] Promethazine [Phenergan] 25 mg PO Q6HR PRN #30 tablet 05/15/17 [Rx] Simethicone [Gas-X] 80 mg PO TID PRN 05/15/17 [Rx] Azelastine 0.1% Nasal Melber [Astelin] 1 spray NS DAILY 06/02/17 [History] Dicyclomine [Bentyl] 10 mg PO QID PRN 06/02/17 [History] Fluticasone Propionate Nasal [Flonase] 50 mcg NS BID 06/02/17 [History] Indomethacin [Indocin] 50 mg PO TIDWM 06/02/17 [History] Ketotifen Fumarate [Zaditor] 1 drop OP DAILY 06/02/17 [History] Multivits Min/Iron/FA/Herb#186 [Hair, Skin and Nails Caplet] 1 each PO DAILY [History] Ranitidine HCl [Zantac] 150 mg PO BID 06/02/17 [History] SUMAtriptan Succinate [Imitrex] 100 mg PO DAILY PRN 06/02/17 [History] Acetaminophen [Tylenol] 650 mg PO Q6HR PRN tablet 06/06/17 [Rx] HYDROcodone/Acet 5/325 mg [[place] 5-325 mg] 1 tab PO Q6H PRN #9 tablet 06/06/17 [ Rx] 3 Allergy/AdvReac Type Severity Reaction Status Date / Time gabapentin Allergy Swelling Verified 06/02/17 13:38 of Lip/Tongue/Throat prednisone Allergy Difficulty Verified 06/02/17 13:38 Breathing ziprasidone [From Geodon] AdvReac Agitated Verified 06/02/17 13:38 All Systems PM: A 10-system review of systems was performed and is negative for pertinent findings except as documented above in the HPI. - Constitutional Constitutional: fatigue, weakness, no chills, no fever(s), no night sweats - EENT Eyes: no change in vision, no discharge, no pain, no photophobia Ears: no ear discharge, no ear pain, no tinnitus Nose, mouth and throat: no dysphagia, no nasal discharge, no neck pain, no sore throat - Cardiovascular Cardiovascular ROS IM: no chest pain, no diaphoresis, no dyspnea, no lightheadedness, no palpitations, no syncope - Respiratory Respiratory: no cough, no dyspnea, no wheezing, no excessive phlegm production - Gastrointestinal Gastrointestinal: as per HPI, abdominal pain (diffuse), early satiety, hematochezia (that is chronic), nausea, no constipation, no diarrhea, no fecal incontinence, no hematemesis, no loose stools, no melena, no vomiting - Genitourinary Genitourinary: no change in urinary stream, no dysuria, no flank pain, no hematuria - Musculoskeletal Musculoskeletal ROS IM: no numbness, no tingling - Integumentary Integumentary IM: no rash, no unusual bruising - Neurological Neurological ROS: no confusion, no convulsions, no dizziness, no focal weakness , no headache(s), no numbness, no tingling, no tremor(s), no vertigo, no weakness - Hematologic/Lymphatic Hematologic/Lymphatic: no easy bruising - Constitutional Vitals: Temp Pulse Resp BP Pulse Ox 99.0 F 99 16 106/71 97 06/17/17 14:07 06/17/17 14:07 06/17/17 14:07 06/17/17 14:07 06/17/17 14:07 General appearance: Present: mild distress, A&O X 3, morbidly obese, answers questions appropriately - Head Head exam: Present: atraumatic, normocephalic - Eye Eye exam: Present: EOMI, PERRL, conjuntiva pink, sclera anicteric Pupils: Present: PERRL - Neck Neck exam general surgery: Present: supple, trachea midline. Absent: lymphadenopathy - Respiratory Respiratory exam: Present: CTAB. Absent: accessory muscle use, rales, rhonchi, wheezes - Cardiovascular Cardiovascular exam: Present: RRR, +S1, +S2. Absent: diastolic murmur, gallop, rubs, systolic murmur - GI/Abdominal GI/Abdominal exam: Present: normal bowel sounds, soft, tenderness (diffuse). Absent: distended, firm, guarding, rebound, rigid - Extremities Exam Extremities exam: Present: normal capillary refill, warm, radial pulses palpable and symmetrical. Absent: calf tenderness, cyanotic, pedal edema - Neurological Exam Neurological exam: Present: CN II-XII intact, oriented X3, no focal deficits. Absent: pronater drift, facial droop, speech deficit - Skin Skin exam: Present: dry, intact Internal Med - H&P Results - Labs CBC & Chem 7: 06/17/17 10:53 06/17/17 10:53
[2017-06-17] MEDS ORDERED: D5% in Water 1,000 ML IVC PRN (16:04)
[2017-06-17] MEDS ORDERED: *HR* Dextrose 50 % in Water (Syg) 50 ML SYRINGE IVP PRN (16:04)
[2017-06-17] MEDS ORDERED: Naloxone 0.4 MG/ML INJ IVP PRN (16:04)
[2017-06-17] MEDS ORDERED: Dextrose Gel 15 GM PO PRN ×2 (16:04)
[2017-06-17] MEDS: Albuterol 2.5 MG/3 ML NEBULIZER IH SCH ×2 (16:07→20:16)
[2017-06-17] MEDS: Diltiazem CD (24hr) 120 MG CAPSULE PO SCH (16:17)
[2017-06-17] MEDS: Indomethacin 25 MG CAPSULE PO SCH (16:17)
[2017-06-17] MEDS: tiZANidine 4 MG TABLET PO SCH ×2 (16:17→21:06)
[2017-06-17] MEDS: MethylPREDNISolone 40 MG/ML VIAL IVP SCH (16:17)
[2017-06-17] MEDS: hydrOXYzine pamoate 25 MG CAPSULE PO SCH ×2 (16:17→21:07)
[2017-06-17] MEDS: (Budesonide [Entocort Ec] 3 MG) PO SCH ×2 (16:18→21:11)
[2017-06-17] MEDS: 0.9 % Sodium Chloride 1,000 ML IVC SCH ×2 (17:32→23:20)
[2017-06-17] MEDS: Insulin LISPRO 300 UNITS/3 ML VIAL SQ SCH ×2 (17:32→21:15)
[2017-06-17] MEDS ORDERED: 0.9 % Sodium Chloride 500 ML IVC ONE ×3 (19:07→23:14)
[2017-06-17] MEDS: Budesonide/Formoterol 160/4.5 MDI IH SCH (20:13)
[2017-06-17] MEDS ORDERED: Topiramate 25 MG TABLET PO SCH (21:00)
[2017-06-17] MEDS ORDERED: traZODone 50 MG TABLET PO SCH (21:00)
[2017-06-17] MEDS: MetroNIDAZOLE 500 MG/100 ML 500 MG/100 ML BAG IVPB SCH (21:03)
[2017-06-17] MEDS: Magnesium Oxide 400 MG TABLET PO SCH (21:06)
[2017-06-17] MEDS: valACYclovir 500 MG TABLET PO SCH (21:06)
[2017-06-17] MEDS: Loratadine 10 MG TABLET PO SCH (21:06)
[2017-06-17] MEDS: Famotidine 20 MG TABLET PO SCH (21:07)
[2017-06-17] MEDS: Pregabalin 75 MG CAPSULE PO SCH (21:07)
[2017-06-17] MEDS: Cholecalciferol (D-3) 1,000 UNIT TABLET PO SCH (21:07)
[2017-06-17] MEDS: *HR* HYDROcodone/Acet 5/325 mg TABLET PO PRN (21:08)
[2017-06-17] MEDS: Fluticasone Propionate Nasal 50 MCG/SPRAY BOTTLE NS SCH (21:08)
--- NOTE | 2017-06-17 23:10 | Event Note ---
Date of Encounter: 06/17/17 Time of Encounter: 23:07 Patient is hypotensive nurse reports borderline low blood pressures. Patient was given blood pressure medications and Elavil as well as narcotics, even though she was alert and borderline hypotensive. Patient is given another 500 mL fluid bolus, recheck vital signs every 15 minutes until stabilized continue to hold blood pressure medication for now, we will additionally hold narcotics until patient's BP stabilizes.
[2017-06-17] MEDS ORDERED: 0.9 % Sodium Chloride 1,000 ML ONE (23:14)
[2017-06-18] MEDS: MethylPREDNISolone 40 MG/ML VIAL IVP SCH ×3 (01:01→16:49)
[2017-06-18] MEDS: MetroNIDAZOLE 500 MG/100 ML 500 MG/100 ML BAG IVPB SCH ×3 (01:05→16:44)
[2017-06-18] MEDS: 0.9 % Sodium Chloride 1,000 ML IVC SCH ×2 (04:34→16:43)
[2017-06-18 04:48] LABS: Basophils % 0.1 %; Hematocrit 38.3 % (35.3-44.9); Immature Granulocytes % 0.6 % (0-4); Lymphocytes # 0.6 K/mcL (0.6-4.6); Mean Corpuscular HGB Conc 31.6 g/dL (31.6-35.5); Mean Corpuscular Hemoglobin 30.7 pg (28.0-33.3); Mean Corpuscular Volume 97.2 fL (83.0-100.0); Mean Platelet Volume 10.9 fL (9.4-12.4); Monocytes # 0.1 K/mcL (0.0-1.3); Monocytes % 1.6 %; Neutrophils # 5.9 K/mcL (1.6-8.9); Platelet Count 242 K/mcL (140-400); Red Blood Count 3.94 M/mcL (3.82-4.97); Red Cell Distribution Width 13.2 % (11.5-14.5); Segmented Neutrophils % 88.7 %
[2017-06-18 04:50] LABS: Hemoglobin 12.1 g/dL (11.5-15.4)
[2017-06-18 05:03] LABS: Alanine Aminotransferase 38 Units/L (0-55); Albumin 2.8 g/dL (3.5-5.0); Albumin/Globulin Ratio 0.7 (1.1-2.2); Alkaline Phosphatase 51 Units/L (38-126); Aspartate Amino Transferase 20 Units/L (5-34); BUN/Creatinine Ratio 11 (6-26); Bilirubin,Total 0.4 mg/dL (0.2-1.2); Blood Urea Nitrogen 11 mg/dL (7-20); Calcium 8.8 mg/dL (8.6-10.8); Carbon Dioxide 18 mEq/L (19-29); Chloride 113 mEq/L (98-109); Globulin 3.8 g/dL (2.4-3.5); Glucose 164 mg/dL (70-99); Osmolality,Calculated 289 (280-300); Potassium 4.8 mEq/L (3.5-4.5); Sodium 138 mEq/L (136-145); Total Protein 6.6 g/dL (6.0-8.3); eGFR For African Americans > 60 (> 60); eGFR For Non-African Americans 59 (> 60)
[2017-06-18] MEDS: Insulin LISPRO 300 UNITS/3 ML VIAL SQ SCH ×4 (08:42→21:15)
[2017-06-18] MEDS ORDERED: Lisinopril 20 MG TABLET PO SCH (09:00)
[2017-06-18] MEDS: *HR* HYDROmorphone (PF) 1 MG/ML SYRINGE IVP PRN ×2 (09:14→16:47)
[2017-06-18] MEDS: Furosemide 20 MG TABLET PO SCH (09:19)
[2017-06-18] MEDS: hydrOXYzine pamoate 25 MG CAPSULE PO SCH ×3 (09:19→21:20)
[2017-06-18] MEDS: Magnesium Oxide 400 MG TABLET PO SCH ×2 (09:19→21:20)
[2017-06-18] MEDS: Famotidine 20 MG TABLET PO SCH ×2 (09:19→21:20)
[2017-06-18] MEDS: Indomethacin 25 MG CAPSULE PO SCH ×3 (09:19→16:50)
[2017-06-18] MEDS: Topiramate 25 MG TABLET PO SCH ×2 (09:19→21:29)
[2017-06-18] MEDS: Cholecalciferol (D-3) 1,000 UNIT TABLET PO SCH ×2 (09:20→21:20)
[2017-06-18] MEDS: FLUoxetine 20 MG CAPSULE PO SCH (09:20)
[2017-06-18] MEDS: Ascorbic Acid 500 MG TABLET PO SCH (09:20)
[2017-06-18] MEDS: BuPROPion XL (24 HR) 150 MG TABLET PO SCH (09:20)
[2017-06-18] MEDS: Prenatal Vit/FA 1 EACH TABLET PO SCH (09:20)
[2017-06-18] MEDS: Fluticasone Propionate Nasal 50 MCG/SPRAY BOTTLE NS SCH ×2 (09:21→21:21)
[2017-06-18] MEDS: (Budesonide [Entocort Ec] 3 MG) PO SCH ×3 (09:22→21:21)
[2017-06-18] MEDS: Azelastine 0.1% Nasal Spray 30 ML BOTTLE NS SCH (09:22)
[2017-06-18] MEDS: (Ketotifen Fumarate [Zaditor] 1 DROP) OP SCH (09:25)
[2017-06-18] MEDS: Albuterol 2.5 MG/3 ML NEBULIZER IH SCH ×4 (09:57→20:04)
[2017-06-18] MEDS: Budesonide/Formoterol 160/4.5 MDI IH SCH ×2 (10:56→19:58)
[2017-06-18] MEDS: *HR* HYDROcodone/Acet 5/325 mg TABLET PO PRN ×2 (12:05→21:20)
--- NOTE | 2017-06-18 17:27 | Internal Med Progress Note ---
Date of Encounter: 06/18/17 Time of Encounter: 17:26 - Assessment and plan (1) Crohn's colitis Current Visit: Yes Status: Acute Assessment and plan: Meagan Flanagan is a 41-year-old female with past medical history Crohn's, diabetes, depression and hypertension who presented to [facility] on 06/17/2017 with complaints of fatigue, abdominal pain and loose stool. She was admitted for Crohn's flare. 1. Crohn's disease: per hx. follows with Dr. Willingham. Was recently admitted for similar symptoms and discharged home on prednisone; patient reports allergy to prednisone and did not take it. Now with recurrent symptoms that are consistent with Crohn's flare per patient. Does not appear acute or toxic. Patient reports decreasing number of stools and tolerating regular diet on 06/18. GI consulted in ED; cont IV Cipro, Flagyl, IV steroids. GI following; await further recommendations. 2. YANA: Cr 1.14 on arrival; baseline normal. Likely prerenal with decreased PO intake and increased stools. Creatinine improved with IV fluids. Avoid nephrotoxic agents as possible. Holding home TERRY. Monitor renal function 3. Diabetes: per hx. holding home oral hypoglycemics. SSI. Monitor blood sugar and titrate PRN. Regimen may need to be adjusted as she is on IV steroids. Blood sugar controlled on 06/18 review. 4. Hypertension: per hx. BP variable but controlled. Continue home BP medication (home TERRY held with YANA). Monitor BP and titrate PRN 5. Depression: per hx. Cont home psych medications 6. DVT prophylaxis: Heparin Qualifiers: Digestive disease complication type: other complication Qualified Code(s): K50.118 - Crohn's disease of large intestine with other complication (2) YANA (acute kidney injury) Current Visit: No Status: Resolved (3) Diabetes Current Visit: Yes Status: Chronic Qualifiers: Diabetes mellitus type: type 2 Diabetes mellitus complication status: with hyperglycemia Diabetes mellitus roasterman insulin use: without mcfp use Qualified Code(s): E11.65 - Type 2 diabetes mellitus with hyperglycemia (4) DVT prophylaxis Current Visit: No Status: Acute - Subjective Interval history: Seen and examined at bedside; patient says she had a rough night without pain medicine. Of note her blood pressure was low with systolics in the 70s so pain medicine was held. She reports severe abdominal pain 10 out of 10 nothing makes it worse, pain medicine helping some. Still having soft, loose stools but not watery. She is tolerating regular diet - Constitutional Vitals: Temp Pulse Resp BP Pulse Ox 98.2 F 79 16 118/73 96 06/18/17 16:05 06/18/17 16:05 06/18/17 16:05 06/18/17 16:05 06/18/17 16:05 General appearance: Present: mild distress, A&O X 3, morbidly obese, answers questions appropriately - Head Head exam: Present: atraumatic, normocephalic - Eye Eye exam: Present: PERRL, conjuntiva pink, sclera anicteric Pupils: Present: PERRL - Neck Neck exam general surgery: Present: supple, trachea midline. Absent: lymphadenopathy - Respiratory Respiratory exam: Present: CTAB. Absent: accessory muscle use, rales, rhonchi, wheezes - Cardiovascular Cardiovascular exam: Present: RRR, +S1, +S2. Absent: diastolic murmur, gallop, rubs, systolic murmur - GI/Abdominal GI/Abdominal exam: Present: normal bowel sounds, soft, no peritoneal signs. Absent: distended, tenderness - Extremities Exam Extremities exam: Present: warm, radial pulses palpable and symmetrical. Absent : calf tenderness, cyanotic, pedal edema - Neurological Exam Neurological exam: Present: CN II-XII intact, oriented X3, no focal deficits. Absent: pronater drift, facial droop, speech deficit - Skin Skin exam: Present: dry, intact Internal Medicine: Result - Labs CBC & Chem 7: 06/18/17 03:56 06/18/17 03:56 Labs: Short CBC 06/18/17 Range/Units 03:56 WBC 6.7 D (4.3-11.1) K/mcL Hgb 12.1 D (11.5-15.4) g/dL Hct 38.3 (35.3-44.9) % Plt Count 242 (140-400) K/mcL Neutrophils # 5.9 (1.6-8.9) K/mcL BMP 06/18/17 03:56 Sodium 138 Potassium 4.8 H Chloride 113 H Carbon Dioxide 18 L BUN 11 Creatinine 1.03 Glucose 164 H Calcium 8.8 Liver Function 06/18/17 Range/Units 03:56 Total Bilirubin 0.4 (0.2-1.2) mg/dL AST 20 (5-34) Units/L ALT 38 (0-55) Units/L Alkaline Phosphatase 51 (38-126) Units/L Albumin 2.8 L (3.5-5.0) g/dL - VTE Documentation of Mechanical Device: Intermittent pneumatic compression device Consult Discharge Plan - Plan Referrals: Daniel Whitney Jr, MD [Primary Care Provider] -
[2017-06-18] MEDS: Pregabalin 75 MG CAPSULE PO SCH (21:20)
[2017-06-18] MEDS: valACYclovir 500 MG TABLET PO SCH (21:20)
[2017-06-18] MEDS: *HR* Heparin 5,000 UNIT/ML VIAL SQ SCH (21:20)
[2017-06-18] MEDS: Loratadine 10 MG TABLET PO SCH (21:20)
[2017-06-19] MEDS: MetroNIDAZOLE 500 MG/100 ML 500 MG/100 ML BAG IVPB SCH ×3 (00:01→16:29)
[2017-06-19] MEDS: MethylPREDNISolone 40 MG/ML VIAL IVP SCH ×3 (00:01→16:29)
[2017-06-19] MEDS: 0.9 % Sodium Chloride 1,000 ML IVC SCH ×3 (00:11→21:36)
[2017-06-19] MEDS: *HR* HYDROcodone/Acet 5/325 mg TABLET PO PRN ×3 (04:49→21:02)
[2017-06-19] MEDS: *HR* Heparin 5,000 UNIT/ML VIAL SQ SCH ×3 (04:50→21:01)
[2017-06-19 05:53] LABS: Hematocrit 37.1 % (35.3-44.9); Mean Corpuscular HGB Conc 32.3 g/dL (31.6-35.5); Mean Corpuscular Hemoglobin 31.3 pg (28.0-33.3); Mean Corpuscular Volume 96.9 fL (83.0-100.0); Mean Platelet Volume 11.5 fL (9.4-12.4); Platelet Count 223 K/mcL (140-400); Red Blood Count 3.83 M/mcL (3.82-4.97); Red Cell Distribution Width 13.2 % (11.5-14.5)
[2017-06-19 06:20] LABS: Alanine Aminotransferase 32 Units/L (0-55); Albumin 2.8 g/dL (3.5-5.0); Albumin/Globulin Ratio 0.8 (1.1-2.2); Alkaline Phosphatase 48 Units/L (38-126); Aspartate Amino Transferase 13 Units/L (5-34); BUN/Creatinine Ratio 11 (6-26); Bilirubin,Total 0.2 mg/dL (0.2-1.2); Blood Urea Nitrogen 11 mg/dL (7-20); Calcium 9.1 mg/dL (8.6-10.8); Carbon Dioxide 21 mEq/L (19-29); Chloride 115 mEq/L (98-109); Globulin 3.4 g/dL (2.4-3.5); Glucose 168 mg/dL (70-99); Osmolality,Calculated 295 (280-300); Potassium 4.5 mEq/L (3.5-4.5); Sodium 141 mEq/L (136-145); Total Protein 6.2 g/dL (6.0-8.3); eGFR For African Americans > 60 (> 60); eGFR For Non-African Americans > 60 (> 60)
[2017-06-19] MEDS: Budesonide/Formoterol 160/4.5 MDI IH SCH ×2 (07:41→20:46)
[2017-06-19] MEDS: Albuterol 2.5 MG/3 ML NEBULIZER IH SCH ×4 (07:42→20:46)
[2017-06-19] MEDS: Insulin LISPRO 300 UNITS/3 ML VIAL SQ SCH ×4 (08:27→21:31)
[2017-06-19] MEDS: Cholecalciferol (D-3) 1,000 UNIT TABLET PO SCH ×2 (08:28→21:02)
[2017-06-19] MEDS: FLUoxetine 20 MG CAPSULE PO SCH (08:28)
[2017-06-19] MEDS: Topiramate 25 MG TABLET PO SCH ×2 (08:29→21:30)
[2017-06-19] MEDS: hydrOXYzine pamoate 25 MG CAPSULE PO SCH ×3 (08:29→21:02)
[2017-06-19] MEDS: Famotidine 20 MG TABLET PO SCH ×2 (08:29→21:02)
[2017-06-19] MEDS: Prenatal Vit/FA 1 EACH TABLET PO SCH (08:29)
[2017-06-19] MEDS: Ascorbic Acid 500 MG TABLET PO SCH (08:29)
[2017-06-19] MEDS: BuPROPion XL (24 HR) 150 MG TABLET PO SCH (08:29)
[2017-06-19] MEDS: Indomethacin 25 MG CAPSULE PO SCH ×3 (08:29→16:28)
[2017-06-19] MEDS: Furosemide 20 MG TABLET PO SCH (08:29)
[2017-06-19] MEDS: (Budesonide [Entocort Ec] 3 MG) PO SCH ×3 (08:30→21:30)
[2017-06-19] MEDS: Magnesium Oxide 400 MG TABLET PO SCH ×2 (08:30→21:02)
[2017-06-19] MEDS: Azelastine 0.1% Nasal Spray 30 ML BOTTLE NS SCH (08:32)
[2017-06-19] MEDS: Fluticasone Propionate Nasal 50 MCG/SPRAY BOTTLE NS SCH ×2 (08:32→21:31)
[2017-06-19] MEDS: *HR* HYDROmorphone (PF) 1 MG/ML SYRINGE IVP PRN ×2 (09:10→16:39)
[2017-06-19] MEDS: (Ketotifen Fumarate [Zaditor] 1 DROP) OP SCH (09:11)
--- NOTE | 2017-06-19 12:01 | Internal Med Progress Note ---
Date of Encounter: 06/19/17 Time of Encounter: 12:02 - Assessment and plan (1) Crohn's colitis Current Visit: Yes Status: Acute Assessment and plan: Meagan Flanagan is a 41-year-old female with past medical history Crohn's, diabetes, depression and hypertension who presented to [facility] on 06/17/2017 with complaints of fatigue, abdominal pain and loose stool. She was admitted for Crohn's flare. 1. Crohn's disease: per hx. follows with Dr. Willingham. Was recently admitted for similar symptoms and discharged home on prednisone; patient reports allergy to prednisone and did not take it. Now with recurrent symptoms that are consistent with Crohn's flare per patient. Does not appear acute or toxic. Patient reports decreasing number of stools and tolerating regular diet on 06/19. GI consulted in ED; cont IV Cipro, Flagyl, IV steroids. GI following; await further recommendations. Stool studies, C. difficile pending 2. YANA: Cr 1.14 on arrival; baseline normal. Likely prerenal with decreased PO intake and increased stools. Creatinine normalized with IV fluids. Avoid nephrotoxic agents as possible. Holding home TERRY. Monitor renal function 3. Diabetes: per hx. holding home oral hypoglycemics. SSI. Monitor blood sugar and titrate PRN. Regimen may need to be adjusted as she is on IV steroids. Blood sugar acceptable on 06/19 review. 4. Hypertension: per hx. BP variable but controlled. Continue home BP medication (home TERRY held with YANA). Monitor BP and titrate PRN 5. Depression: per hx. Cont home psych medications 6. DVT prophylaxis: Heparin Qualifiers: Digestive disease complication type: other complication Qualified Code(s): K50.118 - Crohn's disease of large intestine with other complication (2) YANA (acute kidney injury) Current Visit: No Status: Resolved (3) Diabetes Current Visit: Yes Status: Chronic Qualifiers: Diabetes mellitus type: type 2 Diabetes mellitus complication status: with hyperglycemia Diabetes mellitus usp insulin use: without long term care pharmacist use Qualified Code(s): E11.65 - Type 2 diabetes mellitus with hyperglycemia (4) DVT prophylaxis Current Visit: No Status: Acute - Subjective Interval history: Seen and examined at bedside. No acute changes and assessment report, patient still reports abdominal cramping. Relieved with pain medicine. She reports 3 loose stools today. She is concerned she is discharged to [facility] come right back to the emergency room. Still having soft, loose stools but not watery. She is tolerating regular diet - Constitutional Vitals: Temp Pulse Resp BP Pulse Ox 98.0 F 73 16 125/78 97 06/19/17 11:36 06/19/17 11:36 06/19/17 11:36 06/19/17 11:36 06/19/17 11:36 General appearance: Present: mild distress, A&O X 3, morbidly obese, answers questions appropriately - Head Head exam: Present: atraumatic, normocephalic - Eye Eye exam: Present: PERRL, conjuntiva pink, sclera anicteric Pupils: Present: PERRL - Neck Neck exam general surgery: Present: supple, trachea midline. Absent: lymphadenopathy - Respiratory Respiratory exam: Present: CTAB. Absent: accessory muscle use, rales, rhonchi, wheezes - Cardiovascular Cardiovascular exam: Present: RRR, +S1, +S2. Absent: diastolic murmur, gallop, rubs, systolic murmur - GI/Abdominal GI/Abdominal exam: Present: normal bowel sounds, soft, no peritoneal signs. Absent: distended, tenderness - Extremities Exam Extremities exam: Present: warm, radial pulses palpable and symmetrical. Absent : calf tenderness, cyanotic, pedal edema - Neurological Exam Neurological exam: Present: CN II-XII intact, oriented X3, no focal deficits. Absent: pronater drift, facial droop, speech deficit - Skin Skin exam: Present: dry, intact Internal Medicine: Result - Labs CBC & Chem 7: 06/19/17 04:41 06/19/17 04:41 Labs: Short CBC 06/19/17 Range/Units 04:41 WBC 11.8 H D (4.3-11.1) K/mcL Hgb 12.0 (11.5-15.4) g/dL Hct 37.1 (35.3-44.9) % Plt Count 223 (140-400) K/mcL BMP 06/19/17 04:41 Sodium 141 Potassium 4.5 Chloride 115 H Carbon Dioxide 21 BUN 11 Creatinine 1.01 Glucose 168 H Calcium 9.1 Liver Function 06/19/17 Range/Units 04:41 Total Bilirubin 0.2 (0.2-1.2) mg/dL AST 13 (5-34) Units/L ALT 32 (0-55) Units/L Alkaline Phosphatase 48 (38-126) Units/L Albumin 2.8 L (3.5-5.0) g/dL - VTE Documentation of Mechanical Device: Intermittent pneumatic compression device Consult Discharge Plan - Plan Referrals: Daniel Whitney Jr, MD [Primary Care Provider] -
--- NOTE | 2017-06-19 12:55 | Event Note ---
Date of Encounter: 06/19/17 Time of Encounter: 12:50 Patient with questionable history of Crohn disease who was admitted because of abdominal pain along with cramping and some soft stool and per patient she was also not able to eat. Does has a high ESR of 100 Recommendation: Patient is to be started on Humira injection as an outpatient. Insurance denied Remicade. When stable can be discharged
[2017-06-19] MEDS: Diltiazem CD (24hr) 120 MG CAPSULE PO SCH (16:28)
[2017-06-19] MEDS: valACYclovir 500 MG TABLET PO SCH (21:01)
[2017-06-19] MEDS: Pregabalin 75 MG CAPSULE PO SCH (21:02)
[2017-06-19] MEDS: Loratadine 10 MG TABLET PO SCH (21:02)
[2017-06-19] MEDS: tiZANidine 4 MG TABLET PO SCH (21:55)
[2017-06-20] MEDS: MethylPREDNISolone 40 MG/ML VIAL IVP SCH ×2 (00:36→09:18)
[2017-06-20] MEDS: MetroNIDAZOLE 500 MG/100 ML 500 MG/100 ML BAG IVPB SCH ×2 (00:36→09:17)
[2017-06-20] MEDS: 0.9 % Sodium Chloride 1,000 ML IVC SCH (00:37)
[2017-06-20] MEDS: *HR* HYDROmorphone (PF) 1 MG/ML SYRINGE IVP PRN ×2 (00:43→09:27)
[2017-06-20 05:20] LABS: Hematocrit 36.7 % (35.3-44.9); Hemoglobin 11.9 g/dL (11.5-15.4); Immature Platelets 4.5 % (1.1-6.1); Mean Corpuscular HGB Conc 32.4 g/dL (31.6-35.5); Mean Corpuscular Hemoglobin 31.4 pg (28.0-33.3); Mean Corpuscular Volume 96.8 fL (83.0-100.0); Mean Platelet Volume 10.7 fL (9.4-12.4); Red Blood Count 3.79 M/mcL (3.82-4.97); Red Cell Distribution Width 13.1 % (11.5-14.5)
[2017-06-20 05:34] LABS: Alanine Aminotransferase 31 Units/L (0-55); Albumin 2.9 g/dL (3.5-5.0); Albumin/Globulin Ratio 0.9 (1.1-2.2); Alkaline Phosphatase 47 Units/L (38-126); Aspartate Amino Transferase 10 Units/L (5-34); BUN/Creatinine Ratio 15 (6-26); Bilirubin,Total 0.2 mg/dL (0.2-1.2); Blood Urea Nitrogen 17 mg/dL (7-20); Calcium 9.1 mg/dL (8.6-10.8); Carbon Dioxide 22 mEq/L (19-29); Chloride 109 mEq/L (98-109); Globulin 3.3 g/dL (2.4-3.5); Glucose 200 mg/dL (70-99); Osmolality,Calculated 291 (280-300); Potassium 4.5 mEq/L (3.5-4.5); Sodium 137 mEq/L (136-145); Total Protein 6.2 g/dL (6.0-8.3); eGFR For African Americans > 60 (> 60); eGFR For Non-African Americans 52 (> 60)
[2017-06-20] MEDS: *HR* HYDROcodone/Acet 5/325 mg TABLET PO PRN ×2 (06:01→13:17)
[2017-06-20] MEDS: *HR* Heparin 5,000 UNIT/ML VIAL SQ SCH ×2 (06:02→13:11)
[2017-06-20 06:48] VITALS: BP 137/78
[2017-06-20] MEDS: Albuterol 2.5 MG/3 ML NEBULIZER IH SCH ×3 (07:46→16:34)
[2017-06-20] MEDS: Budesonide/Formoterol 160/4.5 MDI IH SCH (07:48)
[2017-06-20] MEDS: Insulin LISPRO 300 UNITS/3 ML VIAL SQ SCH ×2 (08:12→13:11)
[2017-06-20] MEDS: (Budesonide [Entocort Ec] 3 MG) PO SCH (09:17)
[2017-06-20] MEDS: Magnesium Oxide 400 MG TABLET PO SCH (09:18)
[2017-06-20] MEDS: BuPROPion XL (24 HR) 150 MG TABLET PO SCH (09:18)
[2017-06-20] MEDS: Prenatal Vit/FA 1 EACH TABLET PO SCH (09:18)
[2017-06-20] MEDS: Furosemide 20 MG TABLET PO SCH (09:18)
[2017-06-20] MEDS: Ascorbic Acid 500 MG TABLET PO SCH (09:18)
[2017-06-20] MEDS: Famotidine 20 MG TABLET PO SCH (09:18)
[2017-06-20] MEDS: tiZANidine 4 MG TABLET PO SCH (09:18)
[2017-06-20] MEDS: hydrOXYzine pamoate 25 MG CAPSULE PO SCH (09:19)
[2017-06-20] MEDS: Fluticasone Propionate Nasal 50 MCG/SPRAY BOTTLE NS SCH (09:19)
[2017-06-20] MEDS: Indomethacin 25 MG CAPSULE PO SCH ×2 (09:19→13:11)
[2017-06-20] MEDS: Topiramate 25 MG TABLET PO SCH (09:19)
[2017-06-20] MEDS: Azelastine 0.1% Nasal Spray 30 ML BOTTLE NS SCH (09:19)
[2017-06-20] MEDS: Cholecalciferol (D-3) 1,000 UNIT TABLET PO SCH (09:19)
[2017-06-20] MEDS: FLUoxetine 20 MG CAPSULE PO SCH (09:19)
[2017-06-20] MEDS: (Ketotifen Fumarate [Zaditor] 1 DROP) OP SCH (09:20)
--- NOTE | 2017-06-20 13:06 | Gastroenterology Consult Note ---
<Dede Willingham - Last Filed: 06/20/17 15:03> Date of Encounter: 06/20/17 Time of Encounter: 14:00 - Time Spent With Patient Total time spent is greater than 50% in coordination of care (as documented) at patient's floor/unit and/or counseling patient: GI History of Present Illness - Data of Consult Requesting Physician: Jena Rodriguez CNP - Consult Narrative History of present illness: Ms. Flanagan is a 41 year old female - Constitutional Vitals: Temp Pulse Resp BP Pulse Ox 97.9 F 74 16 137/78 98 06/20/17 06:42 06/20/17 06:42 06/20/17 11:22 06/20/17 06:42 06/20/17 11:22 Results - Labs CBC & Chem 7: 06/20/17 05:04 06/20/17 05:04 Labs: Last Result ESR 100 mm/hr (0-15) H 06/18/17 03:56 Calcium 9.1 mg/dL (8.6-10.8) 06/20/17 05:04 C-Reactive Protein 20 mg/L (Less than 5) H 06/18/17 03:56 Entire Visit Hgb 11.9 g/dL (11.5-15.4) 06/20/17 05:04 Hct 36.7 % (35.3-44.9) 06/20/17 05:04 Total Bilirubin 0.2 mg/dL (0.2-1.2) 06/20/17 05:04 AST 10 Units/L (5-34) 06/20/17 05:04 ALT 31 Units/L (0-55) 06/20/17 05:04 Amylase 43 Units/L (25-125) 06/17/17 10:53 Lipase 26 Units/L (8-78) 06/17/17 10:53 Consult Discharge Plan - Plan Referrals: Héctor Arambula DO [Partnered Physician] - 07/20/17 11:35 am Daniel Whitney Jr, MD [Primary Care Provider] - Dede Willingham MD [Partnered Physician] - Prescriptions: Ciprofloxacin HCl [Cipro] 500 mg PO BID #14 tablet metroNIDAZOLE [Flagyl] 500 mg PO TID #21 tablet - Attending Attestation I examined this patient and my medical decision-making was reviewed with the Resident Physician. I agree with the documented findings, disposition and treatment plan as described except to the extent set forth below. Pt with bowel symptoms suspicious for Crohn Remicade was not apprroved , will try humira as did not responed to po steroids <Tere Villalpando - Last Filed: 06/20/17 15:55> Date of Encounter: 06/20/17 Time of Encounter: 10:30 - Assessment and plan (1) Crohn's colitis Current Visit: Yes Status: Chronic Assessment and plan: Pt presents with continued complaints of abdominal pain, nausea and frequent stools. Colonoscopy 04/28 was normal. She had relief on uceris in the past, remicade was not approved by insurance. Humira has been ordered and will be started this week as an outpatient if approved. Qualifiers: Digestive disease complication type: without complication Qualified Code(s) : K50.10 - Crohn's disease of large intestine without complications - Time Spent With Patient Total time spent is greater than 50% in coordination of care (as documented) at patient's floor/unit and/or counseling patient: GI History of Present Illness - Data of Consult Patient: known to practice within the last 3 years Consult date: 06/20/17 Requesting Physician: Jena Rodriguez CNP - Consult Narrative Reason for consult: Crohn's disease History of present illness: Ms. Flanagan is a 41 year old female with PMHx of colitis (suspicious for Crohn's disease although her ASCA has been negative, normal fecal calprotectin, ESR and CRP were both elevated at 99 and 27 respectively), GERD, HTN, migraines, chronic back pain, asthma, COPD, JUAN, and morbid obesity. She reports she was controlled on Uceris until March 2017 when her insurance company not paying for the medication. She has been hospitalized and to the ER several times since then. She was sent home on prednisone after last admission approx 1 week ago but states she is unable to tolerate prednisone due to edema, difficulty breathing and GI upset. Insurance denied remicade because she has to be tried on Humira first. She reports decreased appetite, fatigue, nausea, chronic hematochezia, abdominal pain and soft BM's after each meal. Denies any fevers, weight-loss, or vomiting. She has been on bentyl and zofran with minimal relief of pain and nausea. Procedures: Capsule endoscopy 05/12/2017: Severe gastroparesis, few scattered spots oval-shaped few millimeters in size, scattered throughout upper and mid small bowel that are suspicious for ulcers, but these lesions are very well demarcated and could be artifacts, incomplete study is capsule did not reach cecum. EGD 05/14/2016 reflux esophagitis. Colonoscopy 05/14/2016 inflammation in the splenic flexure and proximal descending colon, secondary to colitis. NSAIDs: Indocin Anticoagulation: None Past Med Surg Social Fam HX - Past Medical History Medical history: arthritis, asthma, COPD, diabetes, GERD, hypertension, migraine , other Psychiatric history: bipolar, depression - Past Surgical History Surgical History: knee replacement - Social History Smoking Status: Never smoker Smokeless Tobacco Status: No Alcohol use: none Drug use: none - Family History Father Hx Family Cardiac Disorders: Yes (CABG at age 54) Hx Family Respiratory Disorders: Yes Hx Family Cancer: Yes Maternal Living Status: Hx Family Cardiac Disorders: No Hx Family Respiratory Disorders: Yes Hx Family Cancer: Yes Hx Family GI Disorders: No Hx Family Endocrine Disorder: No Review of Systems: GI: as per [place] GENERAL: denies fever, or chills EYES: denies yellow discoloration ENT: denies pain with swallowing or difficulty swallowing CARDIO: denies chest pain, palpitations RESP: mild Shortness of breath with exertion : denies change in color of urine NEURO: denies any weakness HEME: Denies any bruising MS: chronic joint pain and back pain. DERM: denies rash or itching PSYCH: history of anxiety or depression - Constitutional Vitals: Temp Pulse Resp BP Pulse Ox 97.9 F 74 16 137/78 98 06/20/17 06:42 06/20/17 06:42 06/20/17 11:22 06/20/17 06:42 06/20/17 11:22 Exam: CONSTITUTIONAL:~alert, no acute distress.~HEAD:~normocephalic.~EYES:~no jaundice.~NECK:~no obvious swelling.~HEART:~regular rate and rhythm, no murmurs. ~LUNGS:~fair air exchange bilaterally.~ABDOMEN:obese, non distended, soft, diffuse tenderness bilaterally, difficulty to palpate mass and organomegaly due to morbid obesity. RECTAL EXAM:~Deferred.~EXTREMITIES:~no clubbing, cyanosis or edema.~SKIN:~scattered bruising noted, no stigmata of chronic liver disease.~ NEUROLOGIC:~no obvious focal defect.~~~~ Results - Labs CBC & Chem 7: 06/20/17 05:04 06/20/17 05:04 Labs: Last Result ESR 100 mm/hr (0-15) H 06/18/17 03:56 Calcium 9.1 mg/dL (8.6-10.8) 06/20/17 05:04 C-Reactive Protein 20 mg/L (Less than 5) H 06/18/17 03:56 Entire Visit Hgb 11.9 g/dL (11.5-15.4) 06/20/17 05:04 Hct 36.7 % (35.3-44.9) 06/20/17 05:04 Total Bilirubin 0.2 mg/dL (0.2-1.2) 06/20/17 05:04 AST 10 Units/L (5-34) 06/20/17 05:04 ALT 31 Units/L (0-55) 06/20/17 05:04 Amylase 43 Units/L (25-125) 06/17/17 10:53 Lipase 26 Units/L (8-78) 06/17/17 10:53
--- NOTE | 2017-06-20 13:34 | Discharge Summary ---
Date of Encounter: 06/20/17 Time of Encounter: 13:38 - Discharge Diagnosis (1) Crohn's colitis Priority: Primary Status: Acute Comments: Meagan Flanagan is a 41-year-old female with past medical history Crohn's, diabetes, depression and hypertension who presented to [facility] on 06/17/2017 with complaints of fatigue, abdominal pain and loose stool. She was admitted for Crohn's flare. Her symptoms improved with IV Flagyl, Cipro, steroids. She was discharged home in stable condition with GI follow-up. 1. Crohn's disease: suspected however colonoscopy 04/28 normal, with no evidence of inflammatory bowel disease. Follows with Dr. Willingham. Recently admitted for similar symptoms and discharged home on prednisone; patient reports allergy to prednisone and did not take it. Now with recurrent symptoms that are consistent with previous Crohn's flare per patient. Stool studies ordered but not obtained. Her symptoms improved with IV steroids, IV Cipro and Flagyl. She was evaluated by GI who is planning on Humira as outpatient if insurance approves. Discussed with GI and will discharge on Medrol Dosepak ( patient has allergy to prednisone). Continue Cipro, Flagyl; has follow-up with GI on 06/22/17. ATB's and Medrol Dosepak to be continued until evaluated by GI. 2. Abdominal pain: patient reports persistent abdominal pain secondary to Crohn' s disease. Concern for malingering. [place] reviewed on 06/20/2017 and patient has had multiple hospital visits and received multiple Rx for pain medicine. Discussed with patient at length; will give patient 1 week Rx of [place] as she has been receiving inpatient and has been controlling pain. Advised patient she will need to follow-up PCP and/or pain management we will set up referral to pain management prior to discharge 3. YANA: Cr 1.14 on arrival; baseline normal. Likely prerenal with decreased PO intake and increased stools. Creatinine normalized with IV fluids. Avoid nephrotoxic agents as possible. Holding home TERRY. Monitor renal function 4. Diabetes: per hx. resume home diabetes medication regimen. 5. Hypertension: per hx. BP variable but controlled. Continue home BP medication (TERRY held with YANA). BP has been stable. Defer resuming TERRY to PCP 6. Depression: per hx. Cont home psych medications. Suspect psychiatric component to abdominal pain. Recommend outpatient follow-up with psychiatry. 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: without dedicated intermodal truck driver use Qualified Code(s): E11.65 - Type 2 diabetes mellitus with hyperglycemia (4) DVT prophylaxis Priority: Primary Status: Acute - Discharge Medications Prescriptions: Ciprofloxacin HCl [Cipro] 500 mg PO BID #14 tablet metroNIDAZOLE [Flagyl] 500 mg PO TID #21 tablet Home Medications: Albuterol Neb [Proventil Neb] 2.5 mg IH QID 09/09/15 [History] Albuterol Sulfate [Albuterol Inhaler] 2 puff IH Q4HR 09/09/15 [History] Cetirizine HCl [Zyrtec] 10 mg PO HS 09/09/15 [History] Diltiazem HCl [Diltiazem 24Hr Cd] 120 mg PO QPM 09/09/15 [History] Docusate [Colace] 100 mg PO QPM PRN 09/09/15 [History] FLUoxetine HCl [Prozac] 80 mg PO QAM 09/09/15 [History] Ferrous Sulfate 325 mg PO QPM 09/09/15 [History] Fluticasone/Salmeterol [Advair Hfa 115-21 Mcg Inhaler] 2 puff IH BID 09/09/15 [ History] Furosemide [Lasix] 20 mg PO QAM 09/09/15 [History] Montelukast [Singulair] 10 mg PO QPM 09/09/15 [History] clonazePAM [Klonopin] 0.5 mg PO TID PRN 09/09/15 [History] valACYclovir [Valtrex] 500 mg PO HS 09/09/15 [History] Topiramate [Topamax] 50 mg PO BID 02/14/16 [History] Omeprazole [PriLOSEC] 40 mg PO DAILY #30 capsule. 04/22/16 [Rx] l-Norgest/E.estradiol-E.estrad [Ashlyna 0.15-0.03-0.01 mg Tab] 1 tab PO DAILY [History] Ascorbic Acid [Vitamin C] 500 mg PO DAILY 11/14/16 [History] Cholecalciferol (Vitamin D3) [Vitamin D3] 1,000 unit PO BID 11/14/16 [History] Magnesium Oxide [Mag-Ox] 400 mg PO BID 11/14/16 [History] Metformin HCl [Metformin HCl ER] 1,000 mg PO DAILY 11/14/16 [History] Pregabalin [Lyrica] 150 mg PO HS 11/14/16 [History] BuPROPion XL (24 HR) [Wellbutrin Xl] 450 mg PO DAILY 04/18/17 [History] Budesonide [Entocort EC] 3 mg PO TID 04/18/17 [History] EPINEPHrine [Epipen] 0.3 mg IM ONCE PRN 04/18/17 [History] Ondansetron [Zofran] 8 mg PO BID PRN 04/18/17 [History] Cng720/Iron Fumarate/FA/Dss [ 19 Tablet] 1 tab PO DAILY 04/18/17 [ History] Tizanidine HCl [Zanaflex] 4 mg PO TID 04/18/17 [History] Hyoscyamine Sulfate [Anaspaz] 0.125 mg PO Q6H PRN #20 tab.rapdis 04/20/17 [Rx] Amitriptyline [Elavil] 25 mg PO HS 05/12/17 [History] Trazodone HCl 100 mg PO HS 05/12/17 [History] hydrOXYzine pamoate [HydrOXYzine Pamoate] 25 mg PO TID 05/12/17 [History] Calcium Carbonate [Tums] 1,000 mg PO TID PRN 05/15/17 [Rx] Promethazine [Phenergan] 25 mg PO Q6HR PRN #30 tablet 05/15/17 [Rx] Simethicone [Gas-X] 80 mg PO TID PRN 05/15/17 [Rx] Azelastine 0.1% Nasal [place] [Astelin] 1 spray NS DAILY 06/02/17 [History] Dicyclomine [Bentyl] 10 mg PO QID PRN 06/02/17 [History] Fluticasone Propionate Nasal [Flonase] 50 mcg NS BID 06/02/17 [History] Indomethacin [Indocin] 50 mg PO TIDWM 06/02/17 [History] Ketotifen Fumarate [Zaditor] 1 drop OP DAILY 06/02/17 [History] Multivits Min/Iron/FA/Herb#186 [Hair, Skin and Nails Caplet] 1 each PO DAILY [History] Ranitidine HCl [Zantac] 150 mg PO BID 06/02/17 [History] SUMAtriptan Succinate [Imitrex] 100 mg PO DAILY PRN 06/02/17 [History] Acetaminophen [Tylenol] 650 mg PO Q6HR PRN tablet 06/06/17 [Rx] HYDROcodone/Acet 5/325 mg [[place] 5-325 mg] 1 tab PO Q6H PRN #9 tablet 06/06/17 [ Rx] Ciprofloxacin HCl [Cipro] 500 mg PO BID #14 tablet 06/20/17 [Rx] metroNIDAZOLE [Flagyl] 500 mg PO TID #21 tablet 06/20/17 [Rx] Allergies/Adverse Reactions: 3 Allergy/AdvReac Type Severity Reaction Status Date / Time gabapentin Allergy Swelling Verified 06/02/17 13:38 of Lip/Tongue/Throat prednisone Allergy Difficulty Verified 06/02/17 13:38 Breathing ziprasidone [From Geodon] AdvReac Agitated Verified 06/02/17 13:38 Date of admission: 06/17/17 16:04 Primary care physician: Daniel Whitney Jr, MD Discharging clinician: Jena Rodriguez Anticipated date of discharge: 06/20/17 - Patient Status Disposition: Home, Self-Care Functional capacity at discharge: independent ambulation Overall status at discharge: patient is progressing back to baseline - Discharge Instructions Follow Up With: Daniel Whitney Jr, MD [Primary Care Provider] - Dede Willingham MD [Partnered Physician] - - Diet and Activity Activity: resume usual activities as tolerated Diet: advance to your usual diet Interval History: Seen and examined at bedside, patient has reluctant to go home. She is concerned she will turn around and come right back into the hospital. I discussed my concerns with patient regarding pain medicine. [place]AR[place] reviewed and she has had multiple hospitalizations received multiple prescriptions for pain medicine. Advised patient she would receive 1 week Rx for pain medicine, we will need to follow-up with PCP for pain management at that point. Still has some abdominal cramping, no further loose stools. She is tolerating regular diet. Hospital course: See assessment and plan for hospital course - Time Spent with Patient Total time spent providing and/or coordinating discharge services: - Constitutional Vitals: Temp Pulse Resp BP Pulse Ox 97.9 F 74 16 137/78 98 06/20/17 06:42 06/20/17 06:42 06/20/17 11:22 06/20/17 06:42 06/20/17 11:22 General appearance: Present: mild distress, A&O X 3, morbidly obese, answers questions appropriately - Head Head exam: Present: atraumatic, normocephalic - Eye Eye exam: Present: PERRL, conjuntiva pink, sclera anicteric Pupils: Present: PERRL - Neck Neck exam general surgery: Present: supple, trachea midline. Absent: lymphadenopathy - Respiratory Respiratory exam: Present: CTAB. Absent: accessory muscle use, rales, rhonchi, wheezes - Cardiovascular Cardiovascular exam: Present: RRR, +S1, +S2. Absent: diastolic murmur, gallop, rubs, systolic murmur - GI/Abdominal GI/Abdominal exam: Present: normal bowel sounds, soft, no peritoneal signs. Absent: distended, tenderness - Extremities Exam Extremities exam: Present: warm, radial pulses palpable and symmetrical. Absent : calf tenderness, cyanotic, pedal edema - Neurological Exam Neurological exam: Present: CN II-XII intact, oriented X3, no focal deficits. Absent: pronater drift, facial droop, speech deficit - Skin Skin exam: Present: dry, intact - VTE Documentation of Mechanical Device: Intermittent pneumatic compression device
== END 2017-06-20 17:10 | disposition home or self-care (01) | DRG 245 ==
LOC: EMEROO 10:07 → 3BNU 10:07
PROVIDERS: ADMIT Hospitalist; ATTEND Registered Nurse

== ENCOUNTER 2017-09-20 06:17 | Inpatient (IN) ==
[2017-09-20] MEDS ORDERED: Albuterol 2.5 MG/3 ML NEBULIZER IH ONE (06:31)
[2017-09-20] MEDS ORDERED: CeFAZolin Syr 3,000MG/30 ML 3,000 MG/30 ML SYRINGE IVPB ONE (06:31)
[2017-09-20] MEDS ORDERED: Lidocaine -MPF 1% 2 ML VIAL ID ONE (06:31)
[2017-09-20] MEDS ORDERED: Plasma-Lyte A (PH 7.4) 1,000 ML IVC SCH (06:45)
--- NOTE | 2017-09-20 07:15 | Anesthesia Evaluation PreOp ---
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) Other Medical History: Diabetes Type II, GERD, Other (morbid obesity) Anesthesia History: No Prior Anesthetic Complications, Past Anesthesia Alcohol Use: none Drug use: none Medications and Allergies Albuterol Neb [Proventil Neb] 2.5 mg IH QID 09/09/15 [History] Albuterol Sulfate [Albuterol Inhaler] 2 puff IH Q4HR 09/09/15 [History] Cetirizine HCl [Zyrtec] 10 mg PO HS 09/09/15 [History] Diltiazem HCl [Diltiazem 24Hr Cd] 120 mg PO QPM 09/09/15 [History] Docusate [Colace] 100 mg PO QPM PRN 09/09/15 [History] FLUoxetine HCl [Prozac] 80 mg PO QAM 09/09/15 [History] Ferrous Sulfate 325 mg PO QPM 09/09/15 [History] Fluticasone/Salmeterol [Advair Hfa 115-21 Mcg Inhaler] 2 puff IH BID 09/09/15 [ History] Furosemide [Lasix] 20 mg PO QAM 09/09/15 [History] Montelukast [Singulair] 10 mg PO QPM 09/09/15 [History] clonazePAM [Klonopin] 0.5 mg PO TID PRN 09/09/15 [History] valACYclovir [Valtrex] 500 mg PO HS 09/09/15 [History] Topiramate [Topamax] 50 mg PO BID 02/14/16 [History] Omeprazole [PriLOSEC] 40 mg PO DAILY #30 capsule. 04/22/16 [Rx] l-Norgest/E.estradiol-E.estrad [Ashlyna 0.15-0.03-0.01 mg Tab] 1 tab PO DAILY [History] Ascorbic Acid [Vitamin C] 500 mg PO DAILY 11/14/16 [History] Cholecalciferol (Vitamin D3) [Vitamin D3] 1,000 unit PO BID 11/14/16 [History] Magnesium Oxide [Mag-Ox] 400 mg PO BID 11/14/16 [History] Metformin HCl [Metformin HCl ER] 1,000 mg PO DAILY 11/14/16 [History] Pregabalin [Lyrica] 150 mg PO HS 11/14/16 [History] BuPROPion XL (24 HR) [Wellbutrin Xl] 450 mg PO DAILY 04/18/17 [History] Budesonide [Entocort EC] 3 mg PO TID 04/18/17 [History] EPINEPHrine [Epipen] 0.3 mg IM ONCE PRN 04/18/17 [History] Ondansetron [Zofran] 8 mg PO BID PRN 04/18/17 [History] Lki958/Iron Fumarate/FA/Dss [ 19 Tablet] 1 tab PO DAILY 04/18/17 [ History] Tizanidine HCl [Zanaflex] 4 mg PO TID 04/18/17 [History] Hyoscyamine Sulfate [Anaspaz] 0.125 mg PO Q6H PRN #20 tab.rapdis 04/20/17 [Rx] Amitriptyline [Elavil] 25 mg PO HS 05/12/17 [History] Trazodone HCl 100 mg PO HS 05/12/17 [History] hydrOXYzine pamoate [HydrOXYzine Pamoate] 25 mg PO TID 05/12/17 [History] Calcium Carbonate [Tums] 1,000 mg PO TID PRN 05/15/17 [Rx] Promethazine [Phenergan] 25 mg PO Q6HR PRN #30 tablet 05/15/17 [Rx] Simethicone [Gas-X] 80 mg PO TID PRN 05/15/17 [Rx] Azelastine 0.1% Nasal [place] [Astelin] 1 spray NS DAILY 06/02/17 [History] Dicyclomine [Bentyl] 10 mg PO QID PRN 06/02/17 [History] Fluticasone Propionate Nasal [Flonase] 50 mcg NS BID 06/02/17 [History] Indomethacin [Indocin] 50 mg PO TIDWM 06/02/17 [History] Ketotifen Fumarate [Zaditor] 1 drop OP DAILY 06/02/17 [History] Multivits Min/Iron/FA/Herb#186 [Hair, Skin and Nails Caplet] 1 each PO DAILY [History] Ranitidine HCl [Zantac] 150 mg PO BID 06/02/17 [History] SUMAtriptan Succinate [Imitrex] 100 mg PO DAILY PRN 06/02/17 [History] Acetaminophen [Tylenol] 650 mg PO Q6HR PRN tablet 06/06/17 [Rx] HYDROcodone/Acet 5/325 mg [[place] 5-325 mg] 1 tab PO Q6H PRN #9 tablet 06/06/17 [ Rx] Ciprofloxacin HCl [Cipro] 500 mg PO BID #14 tablet 06/20/17 [Rx] methylPREDNISolone [Medrol] 4 mg PO DAILY #20 tablet 06/20/17 [Rx] metroNIDAZOLE [Flagyl] 500 mg PO TID #21 tablet 06/20/17 [Rx] Omeprazole [PriLOSEC] 40 mg PO DAILY #30 cap 06/29/17 [Rx] cephALEXin [Keflex] 500 mg PO BID #14 capsule 07/12/17 [Rx] Orphenadrine [Norflex] 100 mg PO BID #20 tablet.er 08/01/17 [Rx] 3 Allergy/AdvReac Type Severity Reaction Status Date / Time gabapentin Allergy Swelling Verified 09/14/17 09:45 of Lip/Tongue/Throat prednisone Allergy Difficulty Verified 09/14/17 09:45 Breathing ziprasidone [From Geodon] AdvReac Agitated Verified 09/14/17 09:45 - Meds/Allergy Pre-op Review Medications Reviewed: Yes Allergies Reviewed: Yes Beta Blockers on Current Med List: No Anesthesia Exam Selected Entries 09/20/17 06:38 Temperature 97.8 F Pulse Rate 107 Respiratory Rate 18 Blood Pressure 135/76 O2 Sat by Pulse Oximetry 98 Weight: 0715 NPO (# of Hours): over 8 hours - HEENT Pupil (Motor): Pupils equal Mallampati: III Teeth: Normal Oral Opening: Greater than 3 - Cardiac Rhythm: Regular Murmur: None - Pulmonary Breath Sounds: bilateral Clear Respiratory Effort: Symmetrical Anesthesia Assess/Plan ASA Score: 3 Modified Sanjuanita Scale for Level of Consciousness: Cooperative, oriented, and tranquil Anesthetic Plan: General Monitoring Plan: Standard Monitors Recovery Plan: PACU (Discussed GA, risks. Agreed to proceed.)
[2017-09-20] MEDS ORDERED: *HR* FentaNYL (PF) 100 MCG/2 ML VIAL ONE (07:22)
[2017-09-20] MEDS ORDERED: *HR* Propofol 200 MG/20 ML VIAL IVP ONE ×2 (07:22→09:47)
[2017-09-20] MEDS ORDERED: *HR* Midazolam HCl 2 MG/2 ML VIAL ONE (07:22)
[2017-09-20] MEDS ORDERED: Ketamine *HR* 500 MG/10 ML MDV ONE (07:22)
[2017-09-20] MEDS ORDERED: Lidocaine -MPF 4% 5 ML AMPUL ONE (07:28)
[2017-09-20] MEDS ORDERED: Lidocaine -MPF 2% 2 ML VIAL ONE (07:28)
[2017-09-20] MEDS ORDERED: *HR* Succinylcholine 200 MG/10 ML VIAL IVP ONE (07:28)
[2017-09-20] MEDS ORDERED: Acetaminophen IV 1,000 MG/100 ML INFUS..BTL ONE (07:37)
--- NOTE | 2017-09-20 07:37 | History & Physical Report ---
Date of Encounter: 09/20/17 Time of Encounter: 07:37 24 Hour HP Update - Instructions Instructions: If the History and Physical is less than 30 days old and was completed prior to A.M. admission and or procedure and has NOT been updated on calendar day of procedure please complete this update prior to performing procedure. - Update Patient reports changes in Medical Condition: No Changes in examination, assessment, or condition: No Changes in Medication: No Preop tests/diagnostics Reviewed: Yes Pre-Op MRSA Screen: Negative Surgery Remains Indicated: Yes Consent for Planned Operative Procedure(s) Verified: Yes - Pre-Operative Checklist Preoperative Checklist Indicated: No Prophylactic Antibiotic Ordered: Yes Home Medications Include Beta Tristen: No Beta Tristen Taken Today (Day of Surgery): No Beta Tristen Taken Yesterday (Day Prior to Surgery): No Is VTE Prophylaxis Indicated?: Yes
[2017-09-20] MEDS ORDERED: *HR* Rocuronium Bromide 50 MG/5 ML VIAL ONE (07:57)
[2017-09-20] MEDS ORDERED: Ondansetron 4 MG/2 ML VIAL ONE (07:58)
[2017-09-20] MEDS ORDERED: Dexamethasone 4 MG/ML VIAL ONE (07:58)
[2017-09-20] MEDS ORDERED: *HR* Magnesium Sulfate 1 GM/2 ML VIAL ONE (07:59)
[2017-09-20] MEDS ORDERED: Propofol 500 MG/50 ML INFUS..BTL ONE ×4 (08:12→09:52)
[2017-09-20] MEDS ORDERED: *HR* HYDROmorphone 2 MG/ML SYRINGE ONE (08:26)
[2017-09-20] MEDS ORDERED: *HR* HYDROmorphone (PF) 1 MG/ML SYRINGE IVP PRN (08:40)
[2017-09-20] MEDS ORDERED: *HR* Labetalol 20 MG/4 ML SYRINGE IVP PRN (08:40)
[2017-09-20] MEDS ORDERED: *HR* Promethazine 25 MG/ML VIAL IVP PRN (08:40)
[2017-09-20] MEDS ORDERED: Ketorolac 30 MG/ML VIAL ONE (10:40)
[2017-09-20] MEDS ORDERED: Neostigmine Methylsulfate 3 MG/3 ML SYRINGE ONE (10:40)
[2017-09-20] MEDS ORDERED: Ringers Solution, Lactated 1,000 ML IVC SCH (11:01)
--- NOTE | 2017-09-20 11:05 | Orthopedic Operative Note ---
Date of procedure: 09/20/17 Pre-op diagnosis: Lumbar radiculopathy, lumbar stenosis, history of laminectomy Post-op diagnosis: same Operation/Findings: Posterior lumbar interbody fusion L5-S1: The patient successfully underwent general endotracheal anesthesia. The patient was given antibiotics prior to the start of the procedure. Compression boots and stockings were used for deep vein thrombosis prophylaxis. A Ratliff catheter was placed. Leads for neuro monitoring were placed on the upper and lower extremities. This included the cranium. The neuro monitoring personnel confirmed there were satisfactory readings prior to the start of the procedure. The patient was turned prone on the Colton table. The back was prepped and draped in the usual sterile fashion. An incision was was marked and centered over the involved L5-S1 levels in the mid line. The incision was deepened through the lumbar fascia. Bovie cautery and Escobar elevators were used to reflect the paraspinal musculature at the lateral extent of the transverse processes of the involved L5 and S1 levels. Bhavana clamps were placed over the L5 spinous processes. An intraoperative lateral fluoroscopy graft was obtained. A conversation was held between the surgeon and radiologist and both confirmed we had the correct operative levels. We then placed pedicle screws in standard fashion with the aid of fluoroscopy and anatomic landmarks. Briefly a starter awl was used. A gearshift was subsequently used to enter the pilot can router hole via a transpedicular route into the vertebral body. The pilot can router hole was tapped with an undersized instrument, and subsequently four 6.5 x 40 mm pedicle screws were placed bilaterally at the indicated L5 and S1 levels. The screws were tested with the aid of the neurologic monitoring staff via pedicle screw stimulation. All reading suggested there was no significant cortical wall breech. The screws were also evaluated fluoro- graphically and appeared to be in satisfactory position. We then turned our attention to the decompression portion of the procedure. We removed the supraspinous and interspinous ligaments and subsequently the insertion of the ligamentum flavum on the undersurface of the proximal L5 lamina was dislodged with a curette. We then removed the ligamentum flavum as well as undercut the facets at this L5-S1 level to decompress the lateral recesses. We also performed a L5 laminectomy. After the decompression, which was over and above that which was required to place the interbody graft, the foramen and traversing roots at this L5-S1 level were found to be free and patent. We also took part of the medial facets in order to aid in the decompression. We then protected the neural elements including the thecal sac and traversing nerve root on the right with a dural retractor. We made an annulotomy into the L5-S1 disc space and then removed entire disc material using Pituitary instruments. We trialed various size grafts after the endplates were prepared for graft insertion. A 10 x 26 enter body graft fit well within the L5-S1 disc space. We obtained some bone from the right posterior superior iliac spine through us a separate incision and combined with this with the bone which we had saved from the laminectomy portion of the procedure. This autograft bone was first placed in the anterior portion of the L5-S1 disc space and additional bone was placed within the interbody graft spacer. We then placed the interbody graft spacer obliquely across the L5-S1 disc space towards the midline while protecting the neural elements with a root retractor. When the graft was found to be in satisfactory position the tissue inserter was removed. We then copiously irrigated the wound. We then decorticated the L5 transverse processes and proximal portion of the sacrum as well as the L5-S1 facet joints of the involved L5-S1 levels to aid in the posterolateral fusion. We placed autograft bone in the lateral gutters over these regions. We then placed rods within the screw heads of the involved levels and first locked the distal screws and then subsequently locked the proximal screws so as to improve and reduce the spondylolisthesis previously seen. We then closed the wound in layers with 1 Vicryl for the fascia, 2-0 Vicryl. Subcutaneous tissue, and Dermabond was used for skin closure. Sterile dressings were placed over the wound. The patient was turned supine on a hospital bed and extubated. All sponge instruments and needle counts were correct at the end of the procedure. The patient tolerated the procedure well without complications. Anesthesia: GETA Surgeon: Darius Winkler Jr Was there an production administrative assistant present: No Estimated blood loss (cc): 150 Specimen: None Condition: stable Disposition: PACU
--- NOTE | 2017-09-20 12:18 | Anesthesia Evaluation Post Op ---
Date of Encounter: 09/20/17 Time of Encounter: 12:15 - Vital Signs Vital Signs: Vital Signs/O2 Sat, Most Current Temp Pulse Resp BP Pulse Ox 98.0 F 103 20 147/85 96 09/20/17 11:45 09/20/17 12:00 09/20/17 12:00 09/20/17 12:00 09/20/17 12:00 - Lungs Lungs: Clear Ascult./Percussion - Airway Airway: Non-obstructed - Cardiovascular Regular Rate, Baseline Rhythm - Mental Status Mental Status: Alert & Oriented, Answers Appropriately (but drowsy) - Pain Pain Scale: 3 Pain Scale used: Numeric (1 - 10) - Nausea Vomiting Nausea Vomiting: Responds to treatment with IV Meds - Hydration Hydration: Ice chips, Ratliff catheter - Discharge PostOp Status: Transfer Patient to floor
[2017-09-20] MEDS ORDERED: Acetaminophen 325 MG TABLET PO PRN (13:41)
[2017-09-20] MEDS ORDERED: Ondansetron 4 MG/2 ML VIAL IVP PRN (13:41)
[2017-09-20] MEDS ORDERED: Ondansetron ODT 4 MG TAB.RAPDIS PO PRN (13:41)
[2017-09-20] MEDS ORDERED: *HR* EPINEPHrine 0.3 MG/0.3 ML (PEN) IM PRN (13:41)
[2017-09-20] MEDS ORDERED: Hyoscyamine SL 0.125 MG TAB.SUBL PO PRN (13:41)
[2017-09-20] MEDS ORDERED: Naloxone 0.4 MG/ML INJ IVP PRN (13:41)
[2017-09-20] MEDS ORDERED: SUMAtriptan succinate 50 MG TABLET PO PRN (13:41)
[2017-09-20] MEDS ORDERED: clonazePAM 1 MG TABLET PO PRN (13:41)
[2017-09-20] MEDS ORDERED: *HR* Morphine 2 MG/ML SYRINGE ONE (14:02)
[2017-09-20] MEDS: *HR* Morphine 2 MG/ML SYRINGE IVP PRN ×2 (14:11→17:40)
[2017-09-20] MEDS: Albuterol 2.5 MG/3 ML NEBULIZER IH SCH ×2 (16:23→20:45)
[2017-09-20] MEDS: hydrOXYzine pamoate 25 MG CAPSULE PO SCH ×2 (17:40→20:26)
[2017-09-20] MEDS: Diltiazem CD (24hr) 120 MG CAPSULE PO SCH (17:40)
[2017-09-20] MEDS: *HR* OxyCODONE Immed Rel 5 MG TABLET PO SCH ×3 (17:49→20:25)
[2017-09-20] MEDS: Ringers Solution, Lactated 1,000 ML IVC SCH (17:55)
[2017-09-20] MEDS: Magnesium Oxide 400 MG TABLET PO SCH (20:26)
[2017-09-20] MEDS: Cholecalciferol (D-3) 1,000 UNIT TABLET PO SCH (20:26)
[2017-09-20] MEDS: Topiramate 25 MG TABLET PO SCH (20:27)
[2017-09-20] MEDS: Famotidine 20 MG TABLET PO SCH (20:27)
[2017-09-20] MEDS: traZODone 50 MG TABLET PO SCH (20:27)
[2017-09-20] MEDS: Loratadine 10 MG TABLET PO SCH (20:28)
[2017-09-20] MEDS: valACYclovir 500 MG TABLET PO SCH (20:28)
[2017-09-20] MEDS: Budesonide/Formoterol 160/4.5 MDI IH SCH (20:45)
[2017-09-20] MEDS: CeFAZolin Premix DUPLEX 2,000 MG/50 ML BAG IVPB SCH (20:54)
[2017-09-21] MEDS: *HR* OxyCODONE Immed Rel 5 MG TABLET PO SCH ×4 (00:30→12:48)
[2017-09-21] MEDS: tiZANidine 4 MG TABLET PO SCH ×5 (00:31→21:10)
[2017-09-21] MEDS: Orphenadrine 100 MG TABLET.ER PO SCH ×3 (00:31→21:10)
[2017-09-21] MEDS: CeFAZolin Premix DUPLEX 2,000 MG/50 ML BAG IVPB SCH (00:33)
[2017-09-21] MEDS: Albuterol 2.5 MG/3 ML NEBULIZER IH SCH ×4 (04:31→22:12)
[2017-09-21] MEDS: Ringers Solution, Lactated 1,000 ML IVC SCH ×2 (05:06→10:39)
[2017-09-21] MEDS ORDERED: Bacitracin 50,000 UNIT, Polymyxin B Sulfate 500,000 UNIT, Sodium Chloride IRRigation 1,... IR ONE (06:00)
[2017-09-21] MEDS: Multivit/Ca/Min/Fe/FA 1 TAB TABLET PO SCH (08:18)
[2017-09-21] MEDS: Topiramate 25 MG TABLET PO SCH ×2 (08:19→21:11)
[2017-09-21] MEDS: *HR* Metformin 500 MG TABLET PO SCH (08:19)
[2017-09-21] MEDS: Ascorbic Acid 500 MG TABLET PO SCH (08:21)
[2017-09-21] MEDS: Cholecalciferol (D-3) 1,000 UNIT TABLET PO SCH ×2 (08:21→21:11)
[2017-09-21] MEDS: BuPROPion XL (24 HR) 150 MG TABLET PO SCH (08:21)
[2017-09-21] MEDS: Magnesium Oxide 400 MG TABLET PO SCH ×2 (08:22→21:10)
[2017-09-21] MEDS: Famotidine 20 MG TABLET PO SCH ×2 (08:22→21:10)
[2017-09-21] MEDS: hydrOXYzine pamoate 25 MG CAPSULE PO SCH ×3 (08:22→21:11)
[2017-09-21] MEDS: Fluticasone Propionate Nasal 50 MCG/SPRAY BOTTLE NS SCH ×3 (08:24→21:54)
[2017-09-21] MEDS: Azelastine 0.1% Nasal Spray 30 ML BOTTLE NS SCH (08:24)
[2017-09-21] MEDS: Budesonide/Formoterol 160/4.5 MDI IH SCH ×2 (08:38→20:31)
[2017-09-21] MEDS: (Ketotifen Fumarate [Zaditor] 1 DROP) OP SCH (10:31)
[2017-09-21] MEDS: NORGEST PO SCH (10:32)
[2017-09-21] MEDS: E ESTRADIOL E ESTRAD PO SCH (10:32)
[2017-09-21] MEDS: Furosemide 20 MG TABLET PO SCH (10:38)
[2017-09-21] MEDS: FLUoxetine 20 MG CAPSULE PO SCH (12:47)
--- NOTE | 2017-09-21 15:10 | Spine Progress Note ---
Date of Encounter: 09/21/17 Time of Encounter: 15:09 Subjective Principal diagnosis: Status post lumbar fusion Interval history: The patient is without complaints. Afebrile vital signs are stable. Dressing is clean dry and intact. Neurovascularly intact with regard to bilateral lower extremities. Fires all upper and lower extremity motor groups. . Assessment : stable. Plan mobilize ,continue analgesics, discharge planning. Objective Vital signs: Vital Signs Temp Pulse Resp BP Pulse Ox 09/21/17 11:58 98.3 F 80 16 103/63 98 09/21/17 08:29 100 09/21/17 08:21 97.7 F 68 16 127/82 100 09/21/17 04:26 16 96 09/21/17 04:12 97.8 F 79 15 119/74 95 09/21/17 00:10 14 98 09/20/17 23:16 99.1 F 88 15 109/65 96 09/20/17 21:25 98.7 F 100 14 127/73 96 09/20/17 20:44 20 97 09/20/17 16:22 16 98 Intake and Output 09/20/17 09/21/17 09/21/17 23:59 07:59 15:59 Intake Total 1570 / 1570 350 / 350 180 / 180 Output Total 1999 500 / 500 200 / 200 Balance -430 / -430 -150 / -150 -20 / -20 Intake: IV Fluids 50 / 50 Ancef Premix DUPLEX 2,000 mg In 50 / 50 50 ml @ 100 mls/hr IVPB Q8HR [facility] Rx#:[id number] Oral 1520 / 1520 350 / 350 180 / 180 Output: Urine 0 / 0 500 / 500 200 / 200 Catheter 1999 Other: Meal Clear Breakfast Percent of Meal Consumed 100% # Bowel Movements 0 Weight 135.18 kg Blood Glucose* 215 113 Patient Weight 09/21/17 23:59 Weight 135.18 kg - Labs Labs: Abnormal lab results POC Glucose 113 (58-89) H 09/21/17 11:57 Consult Discharge Plan - Plan Referrals: Kanika Drake PAC [Physician Trapeze Performer] - 10/04/17 9:45 am Daniel Whitney Jr, MD [Primary Care Provider] -
[2017-09-21] MEDS: Diltiazem CD (24hr) 120 MG CAPSULE PO SCH (16:05)
[2017-09-21] MEDS: *HR* OxyCODONE Immed Rel 5 MG TABLET PO PRN ×2 (16:05→20:01)
[2017-09-21] MEDS: valACYclovir 500 MG TABLET PO SCH (21:10)
[2017-09-21] MEDS: Loratadine 10 MG TABLET PO SCH (21:11)
[2017-09-21] MEDS: traZODone 50 MG TABLET PO SCH (21:11)
[2017-09-22] MEDS: *HR* OxyCODONE Immed Rel 5 MG TABLET PO PRN ×5 (03:21→23:40)
[2017-09-22] MEDS: Albuterol 2.5 MG/3 ML NEBULIZER IH SCH ×3 (04:07→17:01)
[2017-09-22] MEDS: Budesonide/Formoterol 160/4.5 MDI IH SCH ×2 (08:01→20:21)
[2017-09-22] MEDS ORDERED: (Adalimumab [Humira] 40 MG) SQ SCH (09:00)
[2017-09-22] MEDS: Azelastine 0.1% Nasal Spray 30 ML BOTTLE NS SCH (11:13)
[2017-09-22] MEDS: Fluticasone Propionate Nasal 50 MCG/SPRAY BOTTLE NS SCH ×2 (11:14→23:40)
[2017-09-22] MEDS: *HR* Metformin 500 MG TABLET PO SCH (11:14)
[2017-09-22] MEDS: Furosemide 20 MG TABLET PO SCH (11:15)
[2017-09-22] MEDS: hydrOXYzine pamoate 25 MG CAPSULE PO SCH ×3 (11:15→21:58)
[2017-09-22] MEDS: Famotidine 20 MG TABLET PO SCH ×2 (11:15→21:59)
[2017-09-22] MEDS: Multivit/Ca/Min/Fe/FA 1 TAB TABLET PO SCH (11:15)
[2017-09-22] MEDS: Ascorbic Acid 500 MG TABLET PO SCH (11:15)
[2017-09-22] MEDS: Topiramate 25 MG TABLET PO SCH ×2 (11:18→21:57)
[2017-09-22] MEDS: BuPROPion XL (24 HR) 150 MG TABLET PO SCH (11:18)
[2017-09-22] MEDS: Cholecalciferol (D-3) 1,000 UNIT TABLET PO SCH ×2 (11:19→21:58)
[2017-09-22] MEDS: FLUoxetine 20 MG CAPSULE PO SCH (11:19)
[2017-09-22] MEDS: tiZANidine 4 MG TABLET PO SCH ×3 (11:19→21:58)
[2017-09-22] MEDS: Orphenadrine 100 MG TABLET.ER PO SCH ×2 (11:19→21:59)
[2017-09-22] MEDS: Magnesium Oxide 400 MG TABLET PO SCH ×2 (11:19→21:58)
[2017-09-22] MEDS: NORGEST PO SCH (11:20)
[2017-09-22] MEDS: E ESTRADIOL E ESTRAD PO SCH (11:20)
[2017-09-22] MEDS: (Ketotifen Fumarate [Zaditor] 1 DROP) OP SCH (11:22)
--- NOTE | 2017-09-22 14:42 | Spine Progress Note ---
Date of Encounter: 09/22/17 Time of Encounter: 14:41 Subjective Principal diagnosis: Status post lumbar fusion Interval history: The patient is without complaints. Afebrile vital signs are stable. Incision is clean dry and intact. Neurovascularly intact with regard to bilateral lower extremities. Fires all upper and lower extremity motor groups. . Assessment : stable. Plan mobilize ,continue analgesics, discharge planning. Objective Vital signs: Vital Signs Temp Pulse Resp BP Pulse Ox 09/22/17 11:15 97.9 F 86 16 137/84 98 09/22/17 08:02 16 98 09/22/17 06:25 97.8 F 87 16 98/57 98 09/22/17 04:36 97.6 F 80 16 92/54 96 09/22/17 04:07 16 98 09/21/17 23:33 97.6 F 81 17 102/65 100 09/21/17 23:15 16 96 09/21/17 20:31 17 98 09/21/17 19:51 97.5 F L 77 18 119/65 95 Intake and Output 09/21/17 09/22/17 09/22/17 23:59 07:59 15:59 Intake Total 1000 / 1000 Balance 1000 / 1000 Intake: IV Fluids 1000 / 1000 Lactated Ringers 1,000 ML @ 100 1000 / 1000 mls/hr IVC .Q10H [facility] Rx#: [id number] Other: # Voids 1 1 Blood Glucose* 167 84 118 - Labs Labs: Abnormal lab results POC Glucose 118 (58-89) H 09/22/17 11:12 Consult Discharge Plan - Plan Referrals: Kanika Drake PAC [Physician [employer]] - 10/04/17 9:45 am Tejinder Soler MD [Partnered Physician] - 11/11/17 9:00 am Darius Winkler Jr, MD [Partnered Physician] - 12/22/17 11:30 am Daniel Whitney Jr, MD [Primary Care Provider] - Elvira Louis APN [Non-Partnered Physician] - 10/10/17 11:00 am Dede Willingham MD [Partnered Physician] - 10/03/17 4:20 pm
--- NOTE | 2017-09-22 14:44 | Discharge Summary ---
Date of Encounter: 09/22/17 Time of Encounter: 14:42 - Discharge Diagnosis (1) Lumbar stenosis Priority: Primary Status: Chronic Qualifiers: Neurogenic claudication status: without neurogenic claudication Qualified Code(s): M48.061 - Spinal stenosis, lumbar region without neurogenic claudication (2) Lumbar radiculopathy Priority: Secondary Status: Chronic - Discharge Medications Prescriptions: OxyCODONE Immed Rel [Roxicodone 5 MG] 5 mg PO Q4HR PRN #30 tablet PRN Reason: Pain Home Medications: Albuterol Neb [Proventil Neb] 2.5 mg IH QID 09/09/15 [History] Albuterol Sulfate [Albuterol Inhaler] 2 puff IH Q4HR 09/09/15 [History] Cetirizine HCl [Zyrtec] 10 mg PO HS 09/09/15 [History] Diltiazem HCl [Diltiazem 24Hr Cd] 120 mg PO QPM 09/09/15 [History] Docusate [Colace] 100 mg PO QPM PRN 09/09/15 [History] FLUoxetine HCl [Prozac] 80 mg PO QAM 09/09/15 [History] Ferrous Sulfate 325 mg PO QPM 09/09/15 [History] Fluticasone/Salmeterol [Advair Hfa 115-21 Mcg Inhaler] 2 puff IH BID 09/09/15 [ History] Furosemide [Lasix] 20 mg PO QAM 09/09/15 [History] Montelukast [Singulair] 10 mg PO QPM 09/09/15 [History] clonazePAM [Klonopin] 1 mg PO TID PRN 09/09/15 [History] valACYclovir [Valtrex] 500 mg PO HS 09/09/15 [History] Topiramate [Topamax] 50 mg PO BID 02/14/16 [History] l-Norgest/E.estradiol-E.estrad [Ashlyna 0.15-0.03-0.01 mg Tab] 1 tab PO DAILY [History] Ascorbic Acid [Vitamin C] 500 mg PO DAILY 11/14/16 [History] Cholecalciferol (Vitamin D3) [Vitamin D3] 1,000 unit PO BID 11/14/16 [History] Magnesium Oxide [Mag-Ox] 400 mg PO BID 11/14/16 [History] Metformin HCl [Metformin HCl ER] 1,000 mg PO DAILY 11/14/16 [History] Pregabalin [Lyrica] 150 mg PO HS 11/14/16 [History] BuPROPion XL (24 HR) [Wellbutrin Xl] 450 mg PO DAILY 04/18/17 [History] EPINEPHrine [Epipen] 0.3 mg IM ONCE PRN 04/18/17 [History] Ondansetron [Zofran] 8 mg PO BID PRN 04/18/17 [History] Tizanidine HCl [Zanaflex] 4 mg PO TID 04/18/17 [History] Hyoscyamine Sulfate [Anaspaz] 0.125 mg PO Q6H PRN #20 tab.rapdis 04/20/17 [Rx] Amitriptyline [Elavil] 25 mg PO HS 05/12/17 [History] Trazodone HCl 100 mg PO HS 05/12/17 [History] hydrOXYzine pamoate [HydrOXYzine Pamoate] 25 mg PO TID 05/12/17 [History] Calcium Carbonate [Tums] 1,000 mg PO TID PRN 05/15/17 [Rx] Promethazine [Phenergan] 25 mg PO Q6HR PRN #30 tablet 05/15/17 [Rx] Azelastine 0.1% Nasal [place]nelly [Astelin] 1 spray NS DAILY 06/02/17 [History] Dicyclomine [Bentyl] 10 mg PO QID PRN 06/02/17 [History] Fluticasone Propionate Nasal [Flonase] 50 mcg NS BID 06/02/17 [History] Ketotifen Fumarate [Zaditor] 1 drop OP DAILY 06/02/17 [History] Multivits Min/Iron/FA/Herb#186 [Hair, Skin and Nails Caplet] 1 each PO DAILY [History] Ranitidine HCl [Zantac] 150 mg PO BID 06/02/17 [History] SUMAtriptan Succinate [Imitrex] 100 mg PO DAILY PRN 06/02/17 [History] Acetaminophen [Tylenol] 650 mg PO Q6HR PRN tablet 06/06/17 [Rx] HYDROcodone/Acet 5/325 mg [[place] 5-325 mg] 1 tab PO Q6H PRN #9 tablet 06/06/17 [ Rx] Omeprazole [PriLOSEC] 40 mg PO DAILY #30 cap 06/29/17 [Rx] Orphenadrine [Norflex] 100 mg PO BID #20 tablet.er 08/01/17 [Rx] Adalimumab [Humira] 40 mg SQ QWEEK 09/20/17 [History] Nabumetone 750 mg PO BID 09/20/17 [History] Promethazine [Phenergan] 25 mg PO BID 09/20/17 [History] OxyCODONE Immed Rel [Roxicodone 5 MG] 5 mg PO Q4HR PRN #30 tablet 09/22/17 [Rx] Allergies/Adverse Reactions: 3 Allergy/AdvReac Type Severity Reaction Status Date / Time gabapentin Allergy Swelling Verified 09/20/17 07:36 of Lip/Tongue/Throat prednisone Allergy Difficulty Verified 09/20/17 07:36 Breathing ziprasidone [From Geodon] AdvReac Agitated Verified 09/20/17 07:36 Labs on day of discharge: Labs from last 24 hours 09/22/17 09/22/17 09/21/17 11:12 07:47 21:39 POC Glucose 118 H 84 167 H - Impressions ITS Impressions Lumbar Spine X-Ray 09/20/17 00:00 IMPRESSION: Expected postsurgical changes from L5-S1 posterior fusion. D/ / 09/20/2017 13:08:42 Noy Shay MD / melvina Interpreting Provider: Noy Shay MD Date of admission: 09/20/17 13:54 Primary care physician: Daniel Whitney Jr, MD Consults: 09/20/17 13:41 Consult to Occupational Therapy [CONS] Routine Comment: Evaluate, develop and implement POC Reason for Consult: Postoperative rehabilitation Consult to Physical Therapy [CONS] Routine Comment: Evaluate, develop and implement POC Reason for Consult: Postoperative rehabilitation Consult to Spine Navigator [CONS] [CONS] Routine - Patient Status Disposition: Home, Self-Care Condition: Good Functional capacity at discharge: independent ambulation Overall status at discharge: patient is progressing back to baseline - Discharge Instructions Follow Up With: Kanika Drake PAC [Physician [employer]] - 10/04/17 9:45 am Tejinder Soler MD [Partnered Physician] - 11/11/17 9:00 am Darius Winkler Jr, MD [Partnered Physician] - 12/22/17 11:30 am Daniel Whitney Jr, MD [Primary Care Provider] - Elvira Louis APN [Non-Partnered Physician] - 10/10/17 11:00 am Dede Willingham MD [Partnered Physician] - 10/03/17 4:20 pm - Diet and Activity Activity: as per physical therapy Diet: advance to your usual diet - Hospital Course Hospital course: Ms. Flanagan is a 41 year old female The patient had an uneventful postoperative course. Progressed from intravenous analgesic needs to oral analgesic needs only. Remained neurovascularly intact and mobilized satisfactorily. All intraoperative and/or postoperative radiographic studies were satisfactory. Patient is discharged with plan for rehabilitation and follow-up in 2 weeks post discharge on analgesic medication and patient's home medications. - Time Spent with Patient Total time spent providing and/or coordinating discharge services: - VTE Documentation of Mechanical Device: Intermittent pneumatic compression device
[2017-09-22] MEDS ORDERED: diazePAM 5 MG TABLET PO PRN (17:39)
[2017-09-22] MEDS: Diltiazem CD (24hr) 120 MG CAPSULE PO SCH (18:30)
[2017-09-22] MEDS: valACYclovir 500 MG TABLET PO SCH (21:57)
[2017-09-22] MEDS: Loratadine 10 MG TABLET PO SCH (21:59)
[2017-09-22] MEDS: traZODone 50 MG TABLET PO SCH (21:59)
[2017-09-23] MEDS: Albuterol 2.5 MG/3 ML NEBULIZER IH SCH ×3 (00:19→08:00)
[2017-09-23] MEDS: *HR* OxyCODONE Immed Rel 5 MG TABLET PO PRN ×2 (05:37→10:25)
--- NOTE | 2017-09-23 07:55 | Orthopedics Progress Note ---
Date of Encounter: 09/23/17 Time of Encounter: 07:53 Subjective Principal diagnosis: Status post lumbar fusion Interval history: S: No new issues. Back pain but leg pain improved O: AFVSS Dress c/d/i DNVI with SILT L2-S1 bilaterally A/P: s/p PLIF L5-S1 -Continue PT -PO pain control -D/c planning Objective Vital signs: Vital Signs Temp Pulse Resp BP Pulse Ox 09/23/17 04:02 16 98 09/23/17 01:50 98.2 F 87 18 101/65 98 09/23/17 00:18 16 97 09/22/17 23:06 98.0 F 86 16 102/65 09/22/17 20:54 98 F 82 18 153/86 97 09/22/17 20:21 16 98 09/22/17 18:18 98.2 F 84 18 104/60 100 09/22/17 17:00 16 97 09/22/17 15:48 101/62 09/22/17 11:15 97.9 F 86 16 137/84 98 09/22/17 08:02 16 98 Intake and Output 09/22/17 09/22/17 09/23/17 15:59 23:59 07:59 Intake Total 500 / 500 240 / 240 400 / 400 Output Total 400 / 400 350 / 350 300 / 300 Balance 100 / 100 -110 / -110 100 / 100 Intake: Oral 500 / 500 240 / 240 400 / 400 Output: Urine 400 / 400 350 / 350 300 / 300 Other: Meal Dinner Percent of Meal Consumed 75% # Voids 1 Blood Glucose* 118 93 - Labs Labs: Abnormal lab results POC Glucose 93 (58-89) H 09/22/17 20:41 - VTE Documentation of Mechanical Device: Intermittent pneumatic compression device Consult Discharge Plan - Plan Referrals: Kanika Drake PAC [Physician [employer]] - 10/04/17 9:45 am Tejinder Soler MD [Partnered Physician] - 11/11/17 9:00 am Darius Winkler Jr, MD [Partnered Physician] - 12/22/17 11:30 am Daniel Whitney Jr, MD [Primary Care Provider] - Elvira Louis APN [Non-Partnered Physician] - 10/10/17 11:00 am Dede Willingham MD [Partnered Physician] - 10/03/17 4:20 pm Prescriptions: OxyCODONE Immed Rel [Roxicodone 5 MG] 5 mg PO Q4HR PRN #30 tablet PRN Reason: Pain
[2017-09-23] MEDS: Budesonide/Formoterol 160/4.5 MDI IH SCH (08:02)
[2017-09-23 08:09] VITALS: BP 147/70
== END 2017-09-23 11:27 | disposition home health service (06) | DRG 304 ==
LOC: SAMDAY 06:17 → 3ANU 13:54 → 3NENU 09-21 16:37
PROVIDERS: ADMIT Orthopaedic Surgery Orthopaedic Surgery of the Spine; ATTEND Orthopaedic Surgery Orthopaedic Surgery of the Spine

== ENCOUNTER 2017-11-22 11:35 | Inpatient (IN) ==
[2017-11-22] MEDS ORDERED: methylPREDNISolone 125 MG/2 ML VIAL IVP ONE (12:05)
[2017-11-22] MEDS ORDERED: 0.9 % Sodium Chloride 1,000 ML IVC ONE ×2 (12:05→14:36)
[2017-11-22] MEDS ORDERED: Ondansetron 4 MG/2 ML VIAL IVP ONE ×2 (12:05→14:36)
[2017-11-22 12:51] LABS: Basophils # 0.1 K/mcL (0.0-0.2); Eosinophils # 0.2 K/mcL (0.0-0.6); Eosinophils % 2.9 %; Hematocrit 39.9 % (35.3-44.9); Hemoglobin 13.2 g/dL (11.5-15.4); Immature Granulocytes % 0.3 % (0-4); Lymphocytes # 2.4 K/mcL (0.6-4.6); Mean Corpuscular HGB Conc 33.1 g/dL (31.6-35.5); Mean Corpuscular Volume 93.7 fL (83.0-100.0); Mean Platelet Volume 10.4 fL (9.4-12.4); Monocytes # 0.4 K/mcL (0.0-1.3); Monocytes % 5.8 %; Neutrophils # 4.1 K/mcL (1.6-8.9); Platelet Count 332 K/mcL (140-400); Red Blood Count 4.26 M/mcL (3.82-4.97); Red Cell Distribution Width 12.5 % (11.5-14.5)
[2017-11-22 12:54] LABS: Bilirubin,Urine Negative (Negative); Blood,Urine Negative (Negative); Color,Urine Yellow (Yellow); Glucose,Urine (UA) Normal (Normal); Ketones,Urine Negative (Negative); Leukocyte Esterase,Urine Trace (Negative); Nitrite,Urine Negative (Negative); PH,Urine 6.5 pH Units (5.0-8.0); Protein,Urine Negative (Neg-Trace); Specific Gravity,Urine 1.023 (1.010-1.025); Urobilinogen,Urine Normal (Normal)
[2017-11-22 12:56] LABS: Squamous Epithelial Cell,Urine Many per lpf (None-Few)
[2017-11-22 12:58] LABS: Clarity,Urine Hazy (Clear)
[2017-11-22 13:07] LABS: Bacteria,Urine Many per hpf (None-Few)
[2017-11-22 13:10] LABS: Hyaline Casts,Urine None Seen per lpf (None-Few)
[2017-11-22 13:26] LABS: BUN/Creatinine Ratio 12 (6-26); Blood Urea Nitrogen 12 mg/dL (6-20); Calcium 9.2 mg/dL (8.6-10.3); Carbon Dioxide 18 mEq/L (23-29); Chloride 109 mEq/L (98-107); Glucose 93 mg/dL (70-105); Osmolality,Calculated 283 (280-300); Potassium 3.8 mEq/L (3.5-5.1); Sodium 137 mEq/L (136-145); eGFR For African Americans > 60 (> 60); eGFR For Non-African Americans > 60 (> 60)
--- NOTE | 2017-11-22 13:46 | Emergency Department Note ---
Disposition Clinical Impression: Dehydration, Near syncope Exacerbation of Crohn's disease Qualifiers: Digestive disease complication type: without complication Qualified Code(s): K50.90 - Crohn's disease, unspecified, without complications Disposition: Admitted As Inpatient Condition: Good Instructions: Dehydration (ED), Colitis (ED) Reasons to Return/Additional Instructions: Referrals: Dede Adan MD [Partnered Physician] - Forms: ED Satisfaction Letter Time of Disposition: 16:20 General Adult HPI - General Chief complaint: ED Nausea/Vomiting/Diarrhea Stated complaint: N/D/Weakness Time Seen by Provider: 11/22/17 11:50 Source: patient Mode of arrival: ambulatory Limitations: no limitations Nursing Notes Reviewed: Yes Vital Signs Reviewed: Yes - History of Present Illness HPI Narrative: Patient presents emergency room with nausea and diarrhea. Patient long- standing Crohn's disease. She typically has to have steroid infusion fluid along nausea medication to make sure that her I's are okay. Patient follows up with gastroenterology. Currently denying chest pain shortness of breath headache vision changes during these events. No recent illnesses or fevers according to her. She does have sick contacts in her children. Onset (ago): day(s) Location: abdomen Radiation: non-radiation Pain Severity: moderate Pain Scale: 6 Consistency: constant Improves with: nothing Worsens with: nothing Associated symptoms: Reports: nausea/vomiting Treatments Prior to Arrival: none - Related Data Home Medications Medication Instructions Recorded Confirmed Albuterol Neb [Proventil Neb] 2.5 mg IH QID 09/09/15 09/20/17 Albuterol Sulfate [Albuterol 2 puff IH Q4HR 09/09/15 09/20/17 Inhaler] Cetirizine HCl [Zyrtec] 10 mg PO HS 09/09/15 09/20/17 Diltiazem HCl [Diltiazem 24Hr Cd] 120 mg PO QPM 09/09/15 09/20/17 Docusate [Colace] 100 mg PO QPM PRN 09/09/15 09/20/17 FLUoxetine HCl [Prozac] 80 mg PO QAM 09/09/15 09/20/17 Ferrous Sulfate 325 mg PO QPM 09/09/15 09/20/17 Fluticasone/Salmeterol [Advair Hfa 2 puff IH BID 09/09/15 09/20/17 115-21 Mcg Inhaler] Furosemide [Lasix] 20 mg PO QAM 09/09/15 09/20/17 Montelukast [Singulair] 10 mg PO QPM 09/09/15 09/20/17 clonazePAM [Klonopin] 1 mg PO TID PRN 09/09/15 09/20/17 valACYclovir [Valtrex] 500 mg PO HS 09/09/15 09/20/17 Topiramate [Topamax] 50 mg PO BID 02/14/16 09/20/17 l-Norgest/E.estradiol-E.estrad 1 tab PO DAILY 05/13/16 09/20/17 [Ashlyna 0.15-0.03-0.01 mg Tab] Ascorbic Acid [Vitamin C] 500 mg PO DAILY 11/14/16 09/20/17 Cholecalciferol (Vitamin D3) 1,000 unit PO BID 11/14/16 09/20/17 [Vitamin D3] Magnesium Oxide [Mag-Ox] 400 mg PO BID 11/14/16 09/20/17 Metformin HCl [Metformin HCl ER] 1,000 mg PO DAILY 11/14/16 09/20/17 Pregabalin [Lyrica] 150 mg PO HS 11/14/16 09/20/17 BuPROPion XL (24 HR) [Wellbutrin 450 mg PO DAILY 04/18/17 09/20/17 Xl] EPINEPHrine [Epipen] 0.3 mg IM ONCE PRN 04/18/17 09/20/17 Ondansetron [Zofran] 8 mg PO BID PRN 04/18/17 09/20/17 Tizanidine HCl [Zanaflex] 4 mg PO TID 04/18/17 09/20/17 Amitriptyline [Elavil] 25 mg PO HS 05/12/17 09/20/17 Trazodone HCl 100 mg PO HS 05/12/17 09/20/17 hydrOXYzine pamoate [HydrOXYzine 25 mg PO TID 05/12/17 09/20/17 Pamoate] Azelastine 0.1% Nasal [place] 1 spray NS DAILY 06/02/17 09/20/17 [Astelin] Dicyclomine [Bentyl] 10 mg PO QID PRN 06/02/17 09/20/17 Fluticasone Propionate Nasal 50 mcg NS BID 06/02/17 09/20/17 [Flonase] Ketotifen Fumarate [Zaditor] 1 drop OP DAILY 06/02/17 09/20/17 Multivits Min/Iron/FA/Herb#186 1 each PO DAILY 06/02/17 09/20/17 [Hair, Skin and Nails Caplet] Ranitidine HCl [Zantac] 150 mg PO BID 06/02/17 09/20/17 SUMAtriptan Succinate [Imitrex] 100 mg PO DAILY PRN 06/02/17 09/20/17 Adalimumab [Humira] 40 mg SQ QWEEK 09/20/17 09/20/17 Nabumetone 750 mg PO BID 09/20/17 09/20/17 Promethazine [Phenergan] 25 mg PO BID 09/20/17 09/20/17 Previous Rx's Medication Instructions Recorded Hyoscyamine Sulfate [Anaspaz] 0.125 mg PO Q6H PRN #20 tab.rapdis 04/20/17 Calcium Carbonate [Tums] 1,000 mg PO TID PRN 05/15/17 Promethazine [Phenergan] 25 mg PO Q6HR PRN #30 tablet 05/15/17 Acetaminophen [Tylenol] 650 mg PO Q6HR PRN tablet 06/06/17 HYDROcodone/Acet 5/325 mg [[place] 1 tab PO Q6H PRN #9 tablet 06/06/17 5-325 mg] Omeprazole [PriLOSEC] 40 mg PO DAILY #30 cap 06/29/17 Orphenadrine [Norflex] 100 mg PO BID #20 tablet.er 08/01/17 OxyCODONE Immed Rel [Roxicodone 5 5 mg PO Q4HR PRN #30 tablet 09/22/17 MG] Cephalexin [Keflex] 500 mg PO Q6HR #40 capsule 10/21/17 OxyCODONE/APAP 5/325 [Percocet 1 each PO Q6HR PRN 3 Days #12 10/21/17 5/325 MG] tablet Allergies Allergy/AdvReac Type Severity Reaction Status Date / Time gabapentin Allergy Swelling Verified 11/22/17 11:37 of Lip/Tongue/Throat prednisone Allergy Difficulty Verified 11/22/17 11:37 Breathing ziprasidone [From Geodon] AdvReac Agitated Verified 11/22/17 11:37 All systems ED: reviewed and negative except as stated. Review of Systems: As Per HPI Constitutional: Reports: weakness. Denies: fever, chills Cardiovascular: Denies: chest pain, palpitations, dyspnea on exertion, orthopnea Respiratory: Denies: cough, dyspnea, wheezes Gastrointestinal: Reports: abdominal pain, nausea, diarrhea, hematochezia. Denies: vomiting, constipation, melena Genitourinary: Denies: urgency, dysuria, frequency Musculoskeletal: Denies: back pain, neck pain Neurological: Denies: headache Past Medical History - Past Medical History Attestation: Yes The following information was validated with the patient. Source: patient Medical history: Reports: arthritis, asthma, COPD, DVT, diabetes, GERD, hypertension, migraine, other Surgical history: Reports: knee replacement, orthopedic, other, other Psychiatric history: Reports: bipolar, depression [facility] [employer] [facility] history: Reports: bilateral tubal ligation - Social History Smoking Status: Never smoker Smokeless Tobacco Status: No Alcohol use: Reports: none Drug use: Reports: none Physical Exam - General Limitations: no limitations General appearance: alert, in no apparent distress - Eye Eye exam: Present: normal appearance, PERRL, EOMI - Neck Neck exam: Present: normal inspection, full ROM, trachea midline - Respiratory Respiratory exam: Present: normal lung sounds bilaterally - Cardiovascular Cardiovascular exam: Present: regular rate, normal rhythm, normal heart sounds - Abdominal Exam Abdominal exam: Present: soft, Non-Tender, normal bowel sounds. Absent: tenderness, distention, guarding, rebound, rigidity, diminished bowel sounds, Jorge's sign, Rovsing's sign, tenderness at McBurney's Point - Extremities Exam Extremities exam: Present: normal inspection, full ROM, normal capillary refill. Absent: tenderness, pedal edema - Back Exam Back exam: Present: normal inspection, full ROM. Absent: tenderness - Neurological Exam Neurological exam: Present: alert, oriented X3 - Psychiatric Psychiatric exam: Present: normal affect, normal mood - Skin Skin exam: Present: warm, dry, intact, normal color Course Course Narrative: Patient seen and examined at the time of arrival. See history of present illness. Vital signs reviewed and are unremarkable. 2-year-old female presents emergency room with complaint of nausea and diarrhea. She has a long- standing history of Crohn's disease. She is follow-up at her [facility] office Dr. adan. She called the office today and recommended that she come to the emergency room for evaluation. Patient denies any recent trauma or illness. Denies any fevers or chills headaches vision changes chest pain or shortness of breath. She has had intermittent nausea and diarrhea with no vomiting. Patient has been able to eat and drink. She denies any blood in her stool or dark-colored monitor at this time. She describes abdominal cramping and symptoms as similar to when she has had a Crohn's flareup. Patient does not show any acute signs of hemodynamic instability at this time. Patient will have screening evaluation completed here today with CBC chemistry urinalysis in all joints. Fluids nausea medication steroids will be provided. Disposition will be determined once the workup is completed. Physical exam shows a morbidly obese female in no apparent distress. Lungs are clear heart is regular abdomen is soft. She does have some mild discomfort and tenderness but no point tenderness or guarding. Patient denies any vaginal discharge or burning with urination. Influenza swab will be collected to rule out any other infectious etiology this point. Patient is otherwise clinically stable and disposition to be determined. - Reevaluation(s) Reevaluation #1: Labs are unremarkable this time. Patient is feeling better. Repeat doses of fluids and nausea medication on pain medication will be given. Patient is otherwise showing no acute clinical decompensation or concern for intra- abdominal or other etiology. Disposition will most Be home once the second bolus of fluids is completed. Time: 14:35 Reevaluation #2: Patient was going to the bathroom and got significantly lightheaded and after getting up off the toilet. Patient still symptomatic from dehydration. Labs otherwise unremarkable. She did not fall or hit her head. Patient will be admitted for symptomatic dehydration at this time. Time: 16:19 Reevaluation #3: Patient was discussed with the hospitalist. No other recommendations issues this time. Patient will be admitted for near syncopal event secondary to dehydration and Crohn's exacerbation. Patient is otherwise clinically stable. Patient does have possible dehydration exacerbating the symptoms this time. Patient is otherwise clinically stable. She was informed of the recommendation for admission. She will be admitted for definitive management. No other intervention required at this time.. Patient's urine does show bacteria but she denies any dysuria or other symptoms at this point. Time: 16:39 Vital Signs Temperature 98.9 F 11/22/17 11:37 Pulse Rate 95 11/22/17 11:37 Respiratory Rate 15 11/22/17 11:37 Blood Pressure 138/79 11/22/17 11:37 O2 Sat by Pulse Oximetry 100 11/22/17 11:37 Temperature 98.9 F 11/22/17 11:37 Pulse Rate 89 11/22/17 16:19 Respiratory Rate 16 11/22/17 16:19 Blood Pressure 145/84 11/22/17 16:19 O2 Sat by Pulse Oximetry 97 11/22/17 16:19 Oxygen Delivery Oxygen Delivery Room Air Medical Decision Making - MDM Narrative Medical decision making narrative: Dehydration, generalized malaise, Crohn's flare, near-syncope - Medical Records Medical records reviewed: Yes I reviewed the patient's medical records. - Lab Data Lab results reviewed: Yes I reviewed the patient's lab results. Result diagrams: 11/22/17 12:39 11/22/17 12:39 Lab Results 11/22/17 11/22/17 11/22/17 Range/Units 12:35 12:39 12:39 WBC 7.3 (4.3-11.1) K/mcL RBC 4.26 (3.82-4.97) M/mcL Hgb 13.2 (11.5-15.4) g/dL Hct 39.9 (35.3-44.9) % MCV 93.7 (83.0-100.0) fL MCH 31.0 (28.0-33.3) pg MCHC 33.1 (31.6-35.5) g/dL RDW 12.5 (11.5-14.5) % Plt Count 332 (140-400) K/mcL MPV 10.4 (9.4-12.4) fL Immature Gran % 0.3 (0-4) % Seg Neutrophils % 57.0 % Lymphocytes % 33.0 % Monocytes % 5.8 % Eosinophils % 2.9 % Basophils % 1.0 % Neutrophils # 4.1 (1.6-8.9) K/mcL Lymphocytes # 2.4 (0.6-4.6) K/mcL Monocytes # 0.4 (0.0-1.3) K/mcL Eosinophils # 0.2 (0.0-0.6) K/mcL Basophils # 0.1 (0.0-0.2) K/mcL Sodium (136-145) mEq/L Potassium (3.5-5.1) mEq/L Chloride (98-107) mEq/L Carbon Dioxide (23-29) mEq/L BUN (6-20) mg/dL Creatinine (0.60-1.20) mg/dL Est GFR ( Amer) (> 60) Est GFR (Non-Af Amer) (> 60) BUN/Creatinine Ratio (6-26) Glucose (70-105) mg/dL POC Glucose (58-89) Calculated Osmolality (280-300) Calcium (8.6-10.3) mg/dL Urine Color Yellow (Yellow) Urine Clarity Hazy A (Clear) Urine pH 6.5 (5.0-8.0) pH Units Ur Specific [place] 1.023 (1.010-1.025) Urine Protein Negative (Neg-Trace) mg/dL Urine Glucose (UA) Normal (Normal) mg/dL Urine Ketones Negative (Negative) mg/dL Urine Blood Negative (Negative) Urine Nitrite Negative (Negative) Urine Bilirubin Negative (Negative) Urine Urobilinogen Normal (Normal) mg/dL Ur Leukocyte Esterase Trace H (Negative) Urine Microscopic WBC 5-15 H (0-3) per hpf Ur Squamous Epith Cells Many H (None-Few) per lpf Urine Bacteria Many H (None-Few) per hpf Hyaline Casts None Seen (None-Few) per lpf Ur Culture Indicated? NO. (NO) Urine Test Negative (Negative) 11/22/17 11/22/17 Range/Units 12:39 16:18 WBC (4.3-11.1) K/mcL RBC (3.82-4.97) M/mcL Hgb (11.5-15.4) g/dL Hct (35.3-44.9) % MCV (83.0-100.0) fL MCH (28.0-33.3) pg MCHC (31.6-35.5) g/dL RDW (11.5-14.5) % Plt Count (140-400) K/mcL MPV (9.4-12.4) fL Immature Gran % (0-4) % Seg Neutrophils % % Lymphocytes % % Monocytes % % Eosinophils % % Basophils % % Neutrophils # (1.6-8.9) K/mcL Lymphocytes # (0.6-4.6) K/mcL Monocytes # (0.0-1.3) K/mcL Eosinophils # (0.0-0.6) K/mcL Basophils # (0.0-0.2) K/mcL Sodium 137 (136-145) mEq/L Potassium 3.8 (3.5-5.1) mEq/L Chloride 109 H (98-107) mEq/L Carbon Dioxide 18 L (23-29) mEq/L BUN 12 (6-20) mg/dL Creatinine 1.00 (0.60-1.20) mg/dL Est GFR ( Amer) > 60 (> 60) Est GFR (Non-Af Amer) > 60 (> 60) BUN/Creatinine Ratio 12 (6-26) Glucose 93 (70-105) mg/dL POC Glucose 118 H (58-89) Calculated Osmolality 283 (280-300) Calcium 9.2 (8.6-10.3) mg/dL Urine Color (Yellow) Urine Clarity (Clear) Urine pH (5.0-8.0) pH Units Ur Specific [place] (1.010-1.025) Urine Protein (Neg-Trace) mg/dL Urine Glucose (UA) (Normal) mg/dL Urine Ketones (Negative) mg/dL Urine Blood (Negative) Urine Nitrite (Negative) Urine Bilirubin (Negative) Urine Urobilinogen (Normal) mg/dL Ur Leukocyte Esterase (Negative) Urine Microscopic WBC (0-3) per hpf Ur Squamous Epith Cells (None-Few) per lpf Urine Bacteria (None-Few) per hpf Hyaline Casts (None-Few) per lpf Ur Culture Indicated? (NO) Urine Test (Negative)
[2017-11-22] MEDS ORDERED: Ketorolac 15 MG/ML VIAL IVP ONE (14:36)
[2017-11-22] MEDS ORDERED: Acetaminophen 325 MG TABLET PO PRN (19:29)
[2017-11-22] MEDS ORDERED: hydrOXYzine pamoate 25 MG CAPSULE PO PRN (19:29)
[2017-11-22] MEDS ORDERED: *HR* Morphine Soln 10 MG/5 ML UDC PO PRN (19:39)
[2017-11-22] MEDS: *HR* HYDROcodone/Acet 5/325 mg TABLET PO PRN (20:09)
[2017-11-22] MEDS ORDERED: Naloxone 0.4 MG/ML INJ IVP PRN (21:22)
[2017-11-22] MEDS ORDERED: *HR* Dextrose 50 % in Water (Syg) 50 ML SYRINGE IVP PRN (21:29)
[2017-11-22] MEDS ORDERED: D5% in Water 1,000 ML IVC PRN (21:29)
[2017-11-22] MEDS ORDERED: Dextrose Gel 15 GM/37.5 ML TUBE PO PRN ×2 (21:29)
[2017-11-22] MEDS ORDERED: Furosemide 20 MG TABLET PO PRN (21:30)
--- NOTE | 2017-11-22 21:42 | Internal Med History&Physical ---
Date of Encounter: 11/22/17 Time of Encounter: 20:00 Assessment and Plan (1) Dehydration Current visit: Yes Status: Acute Pt has severe diarrhea. Poor intake due to nausea. Dizziness/near syncope. Consider dehydration. - Closely monitor vitals. - IVF - Monitor/Correct electrolytes abnormality. (2) Exacerbation of Crohn's disease Current visit: Yes Status: Acute Pt has increased diarrhea. Hx of Crohn's Dis. Consider crohn's dis flare. - Steroid started from ER, will cont. - Stool GI penal to r/o C Diff - If condition not improve, consider consult GI Qualifiers: Digestive disease complication type: without complication Qualified Code(s) : K50.90 - Crohn's disease, unspecified, without complications (3) DVT prophylaxis Current visit: No Status: Acute Pt is taking oral contraceptive pills, high risk for DVT, place her on SC heparin. (4) Depression Current visit: No Status: Acute Cont home meds. Qualifiers: Depression Type: major depressive disorder Major depression recurrence: recurrent Active/Remission status: currently active Major depression episode severity: unspecified Qualified Code(s): F33.9 - Major depressive disorder, recurrent, unspecified (5) Asthma Current visit: No Status: Chronic No wheezes now, cont home meds. Qualifiers: Asthma severity: mild Asthma persistence: intermittent Asthma complication type: uncomplicated Qualified Code(s): J45.20 - Mild intermittent asthma, uncomplicated (6) Diarrhea Current visit: No Status: Chronic Most likely due to Crohn's Disease flare. Treatment as above. Need to R/O C Diff. Qualifiers: Diarrhea type: unspecified type Qualified Code(s): R19.7 - Diarrhea, unspecified (7) Essential hypertension Current visit: No Status: Chronic Cont home meds. (8) Morbid obesity with BMI of 50.0-59.9, adult Current visit: No Status: Chronic Need life style modification as OP (9) JUAN on CPAP Current visit: No Status: Chronic Cont CPAP at night. Internal Medicine - H&P: HPI Chief complaint: Diarrhea Admitted From: Home Plans for Post Hospital Care: Home History of present illness: Ms. Flanagan is a 42 year old female with history of Crohn's disease, diabetes, asthma, hypertension, depression and anxiety, presented to ER for diarrhea and nausea. Patient has history of Crohn disease and follow-up with GI as outpatient. Patient had watery diarrhea with about 10 bowel movements in one hour. Patient has nausea but no vomiting. Patient failed business and generalized weak. She thought she has Crohn disease flare and dehydration. Patient was admitted for Crohn flare. Past Med Surg Social Fam HX - Past Medical History Medical history: arthritis, asthma, COPD, DVT, diabetes, GERD, hypertension, migraine, other Psychiatric history: bipolar, depression - Past Surgical History Surgical History: knee replacement, orthopedic, other, other (Tube ligation) - Social History Smoking Status: Never smoker Smokeless Tobacco Status: No Alcohol use: none Drug use: none - Family History Father Hx Family Cardiac Disorders: Yes (CABG at age 54) Hx Family Respiratory Disorders: Yes Hx Family Cancer: Yes Maternal Living Status: Hx Family Cardiac Disorders: No Hx Family Respiratory Disorders: Yes Hx Family Cancer: Yes Hx Family GI Disorders: No Hx Family Endocrine Disorder: No Internal Medicine - H&P: Meds Albuterol Neb [Proventil Neb] 2.5 mg IH QID 09/09/15 [History] Albuterol Sulfate [Albuterol Inhaler] 2 puff IH Q4HR PRN 09/09/15 [History] Cetirizine HCl [Zyrtec] 10 mg PO HS 09/09/15 [History] Diltiazem HCl [Diltiazem 24Hr Cd] 120 mg PO QPM 09/09/15 [History] Docusate [Colace] 100 mg PO QPM 09/09/15 [History] FLUoxetine HCl [Prozac] 80 mg PO QAM 09/09/15 [History] Ferrous Sulfate 325 mg PO QPM 09/09/15 [History] Fluticasone/Salmeterol [Advair Hfa 115-21 Mcg Inhaler] 2 puff IH BID 09/09/15 [ History] Furosemide [Lasix] 20 mg PO QAM PRN 09/09/15 [History] Montelukast [Singulair] 10 mg PO QPM 09/09/15 [History] clonazePAM [Klonopin] 1 mg PO TID PRN 09/09/15 [History] valACYclovir [Valtrex] 500 mg PO HS 09/09/15 [History] Topiramate [Topamax] 50 mg PO BID 02/14/16 [History] l-Norgest/E.estradiol-E.estrad [[place]na 0.15-0.03-0.01 mg Tab] 1 tab PO DAILY [History] Ascorbic Acid [Vitamin C] 500 mg PO DAILY 11/14/16 [History] Cholecalciferol (Vitamin D3) [Vitamin D3] 2,000 unit PO DAILY 11/14/16 [History] Metformin HCl [Metformin HCl ER] 1,000 mg PO DAILY 11/14/16 [History] Pregabalin [Lyrica] 150 mg PO BID 11/14/16 [History] BuPROPion XL (24 HR) [Wellbutrin Xl] 450 mg PO DAILY 04/18/17 [History] EPINEPHrine [Epipen] 0.3 mg IM ONCE PRN 04/18/17 [History] Tizanidine HCl [Zanaflex] 4 mg PO TID PRN 04/18/17 [History] Amitriptyline [Elavil] 25 mg PO HS 05/12/17 [History] Trazodone HCl 50 - 100 mg PO HS 05/12/17 [History] hydrOXYzine pamoate [HydrOXYzine Pamoate] 25 mg PO TID PRN 05/12/17 [History] Calcium Carbonate [Tums] 1,000 mg PO TID PRN 05/15/17 [Rx] Fluticasone Propionate Nasal [Flonase] 50 mcg NS BID 06/02/17 [History] SUMAtriptan Succinate [Imitrex] 100 mg PO DAILY PRN 06/02/17 [History] Acetaminophen [Tylenol] 650 mg PO Q6HR PRN tablet 06/06/17 [Rx] Adalimumab [Humira] 40 mg SQ QWEEK 09/20/17 [History] HYDROcodone/Acet 5/325 mg [[place] 5-325 mg] 1 tab PO Q6H PRN 11/22/17 [History] Indomethacin 50 mg PO TID 11/22/17 [History] Omeprazole [PriLOSEC] 40 mg PO BID 11/22/17 [History] Pantoprazole Sodium [Protonix] 40 mg PO DAILY 11/22/17 [History] [id number]/Iron Fumarate/FA/Dss [ 19 Tablet] 1 each PO DAILY 11/22/17 [ History] Prochlorperazine Maleate [Compazine] 5 mg PO TID PRN 11/22/17 [History] 3 Allergy/AdvReac Type Severity Reaction Status Date / Time acetaminophen [From Percocet] Allergy Confusion Verified 11/22/17 19:39 gabapentin Allergy Swelling Verified 11/22/17 11:37 of Lip/Tongue/Throat Oxycodone [From Percocet] Allergy Confusion Verified 11/22/17 19:39 prednisone Allergy Difficulty Verified 11/22/17 11:37 Breathing ziprasidone [From Geodon] AdvReac Agitated Verified 11/22/17 11:37 All Systems PM: A 10-system review of systems was performed and is negative for pertinent findings except as documented above in the HPI. - Constitutional Vitals: Temp Pulse Resp BP Pulse Ox 99.2 F 93 14 128/84 95 11/22/17 19:27 11/22/17 19:27 11/22/17 19:27 11/22/17 19:27 11/22/17 19:27 General appearance: Present: A&O X 3, no acute distress, answers questions appropriately - Head Head exam: Present: atraumatic, normocephalic - Eye Eye exam: Present: PERRL, conjuntiva pink, sclera anicteric Pupils: Present: PERRL - Neck Neck exam general surgery: Present: supple, trachea midline. Absent: lymphadenopathy - Respiratory Respiratory exam: Present: CTAB. Absent: accessory muscle use, rales, rhonchi, wheezes - Cardiovascular Cardiovascular exam: Present: RRR, +S1, +S2. Absent: diastolic murmur, gallop, rubs, systolic murmur - GI/Abdominal GI/Abdominal exam: Present: normal bowel sounds, soft, tenderness (Mild tenderness on lower abdomen, without rebound or guarding), no peritoneal signs. Absent: distended - Extremities Exam Extremities exam: Present: warm, radial pulses palpable and symmetrical. Absent : calf tenderness, cyanotic, pedal edema - Neurological Exam Neurological exam: Present: CN II-XII intact, oriented X3, no focal deficits. Absent: pronater drift, facial droop, speech deficit - Skin Skin exam: Present: dry, intact Internal Med - H&P Results - Labs CBC & Chem 7: 11/22/17 12:39 11/22/17 12:39
[2017-11-22] MEDS: tiZANidine 4 MG TABLET PO PRN (22:23)
[2017-11-22] MEDS: clonazePAM 1 MG TABLET PO PRN (22:23)
[2017-11-22] MEDS: *HR* Heparin 5,000 UNIT/ML VIAL SQ SCH (22:23)
[2017-11-22] MEDS: 0.9 % Sodium Chloride 1,000 ML IVC SCH (22:24)
[2017-11-22] MEDS: methylPREDNISolone 125 MG/2 ML VIAL IVP SCH (22:24)
[2017-11-23] MEDS: *HR* HYDROcodone/Acet 5/325 mg TABLET PO PRN ×3 (01:45→20:38)
[2017-11-23] MEDS: SUMAtriptan succinate 50 MG TABLET PO PRN (04:48)
[2017-11-23 05:23] LABS: Hemoglobin 12.4 g/dL (11.5-15.4); Immature Granulocytes % 0.7 % (0-4); Lymphocytes # 0.8 K/mcL (0.6-4.6); Lymphocytes % 13.1 %; Mean Corpuscular HGB Conc 32.6 g/dL (31.6-35.5); Mean Corpuscular Hemoglobin 30.8 pg (28.0-33.3); Mean Corpuscular Volume 94.5 fL (83.0-100.0); Mean Platelet Volume 10.9 fL (9.4-12.4); Monocytes % 0.7 %; Neutrophils # 5.2 K/mcL (1.6-8.9); Platelet Count 292 K/mcL (140-400); Red Blood Count 4.02 M/mcL (3.82-4.97); Red Cell Distribution Width 12.4 % (11.5-14.5); Segmented Neutrophils % 85.5 %
[2017-11-23 05:50] LABS: BUN/Creatinine Ratio 11 (6-26); Blood Urea Nitrogen 9 mg/dL (6-20); Carbon Dioxide 18 mEq/L (23-29); Chloride 113 mEq/L (98-107); Glucose 161 mg/dL (70-105); Magnesium 2.1 mg/dL (1.6-2.6); Osmolality,Calculated 288 (280-300); Potassium 4.2 mEq/L (3.5-5.1); Sodium 138 mEq/L (136-145); eGFR For African Americans > 60 (> 60); eGFR For Non-African Americans > 60 (> 60)
[2017-11-23] MEDS: 0.9 % Sodium Chloride 1,000 ML IVC SCH (07:04)
[2017-11-23] MEDS: Prenatal Vit/FA 1 EACH TABLET PO SCH (08:30)
[2017-11-23] MEDS: Pregabalin 75 MG CAPSULE PO SCH ×2 (08:30→20:30)
[2017-11-23] MEDS: Cholecalciferol (D-3) 1,000 UNIT TABLET PO SCH (08:30)
[2017-11-23] MEDS: BuPROPion XL (24 HR) 150 MG TABLET PO SCH (08:31)
[2017-11-23] MEDS: Ascorbic Acid 500 MG TABLET PO SCH (08:31)
[2017-11-23] MEDS: Topiramate 25 MG TABLET PO SCH ×2 (08:31→20:30)
[2017-11-23] MEDS: FLUoxetine 20 MG CAPSULE PO SCH (08:31)
[2017-11-23] MEDS: Indomethacin 25 MG CAPSULE PO SCH ×3 (08:32→20:38)
[2017-11-23] MEDS: *HR* Heparin 5,000 UNIT/ML VIAL SQ SCH ×2 (08:32→15:53)
[2017-11-23] MEDS: methylPREDNISolone 125 MG/2 ML VIAL IVP SCH ×2 (08:32→15:53)
[2017-11-23] MEDS: Insulin LISPRO 300 UNITS/3 ML VIAL SQ SCH ×3 (08:34→17:09)
[2017-11-23] MEDS: Fluticasone Propionate Nasal 50 MCG/SPRAY BOTTLE NS SCH ×2 (08:35→20:34)
[2017-11-23] MEDS ORDERED: NON-FORMULARY MEDICATION 1 EACH EACH (Pantoprazole Sodium [Protonix] 40 MG) PO SCH (09:00)
[2017-11-23] MEDS: Albuterol 2.5 MG/3 ML NEBULIZER IH SCH ×3 (10:06→22:36)
[2017-11-23] MEDS: Diltiazem CD (24hr) 120 MG CAPSULE PO SCH (17:08)
[2017-11-23] MEDS: clonazePAM 1 MG TABLET PO PRN ×2 (17:15→20:30)
[2017-11-23] MEDS: Budesonide/Formoterol 80/4.5 MDI IH SCH (17:22)
--- NOTE | 2017-11-23 18:30 | Internal Med Progress Note ---
Date of Encounter: 11/23/17 Time of Encounter: 11:55 - Assessment and plan (1) Dehydration Current Visit: Yes Status: Acute Assessment and plan: Patient reports severe diarrhea, multiple episodes daily for approximately a week. She also reports poor by mouth intake due to nausea. She reports episodes of dizziness/near syncope in the emergency department. Patient without any significant alterations of lab values on admission. Continue IV fluid hydration Continue monitor vitals and labs. (2) Exacerbation of Crohn's disease Current Visit: Yes Status: Acute Assessment and plan: Patient with diagnosis of Crohn's disease approximately 2 years ago. She reports that she was taking a medication and doing well, insurance decided they were going to pay for it. Patient reports that she has struggled with flares since that time. Symptoms include low abdominal cramping and increased diarrhea for the last week. Continue IV Solu-Medrol, patient states that she is not able to take prednisone , but is able to take Solu-Medrol. Stool/GI panel rejected due to it not being liquid stool. Patient reports that she is feeling better today, if she is not improved by tomorrow, will consider GI consult. Qualifiers: Digestive disease complication type: without complication Qualified Code(s) : K50.90 - Crohn's disease, unspecified, without complications (3) DVT prophylaxis Current Visit: Yes Status: Acute Assessment and plan: Heparin subcutaneous. (4) Depression Current Visit: Yes Status: Acute Assessment and plan: Chronic. Continue home medications. Qualifiers: Depression Type: major depressive disorder Major depression recurrence: recurrent Active/Remission status: currently active Major depression episode severity: unspecified Qualified Code(s): F33.9 - Major depressive disorder, recurrent, unspecified (5) Asthma Current Visit: Yes Status: Chronic Assessment and plan: No acute exacerbation. Continue home medications. Qualifiers: Asthma severity: mild Asthma persistence: intermittent Asthma complication type: uncomplicated Qualified Code(s): J45.20 - Mild intermittent asthma, uncomplicated (6) Diarrhea Current Visit: Yes Status: Chronic Assessment and plan: Plan as above. Qualifiers: Diarrhea type: unspecified type Qualified Code(s): R19.7 - Diarrhea, unspecified (7) Essential hypertension Current Visit: Yes Status: Chronic Assessment and plan: Chronic. Continue home medications. Monitor vitals per admission orders. (8) Morbid obesity with BMI of 50.0-59.9, adult Current Visit: Yes Status: Chronic Assessment and plan: Chronic. Encouraged lifestyle modifications. (9) JUAN on CPAP Current Visit: Yes Status: Chronic Assessment and plan: Continue CPAP at night. - Time Spent With Patient less than 15 minutes - Subjective Interval history: Patient was seen and assessed at bedside 11:55 AM. Patient's and father were at bedside. All questions were answered. Patient reports headache without ER and plumbing engineer appeared to have difficulty treating, however it is better at this time. Patient reports low abdominal pain with palpation, and cramping, diarrhea. She denies blurred vision, dizziness or lightheadedness. She denies chest pain or shortness of breath. She denies urinary symptoms. Patient states that she is feeling better than she was on admission. He agreed to continue to monitor and continue steroid treatment and repeat visit discharge tomorrow. She was agreeable. - Constitutional Vitals: Temp Pulse Resp BP Pulse Ox 98.3 F 84 15 132/74 97 11/23/17 15:32 11/23/17 15:32 11/23/17 16:02 11/23/17 15:32 11/23/17 16:02 General appearance: Present: cooperative, A&O X 3, morbidly obese, no acute distress, answers questions appropriately - Head Head exam: Present: atraumatic, normal inspection, normocephalic - Eye Eye exam: Present: conjuntiva pink, sclera anicteric - Neck Neck exam general surgery: Present: supple, trachea midline. Absent: lymphadenopathy, tenderness - Respiratory Respiratory exam: Present: CTAB, wheezes. Absent: accessory muscle use, chest wall tenderness, rales, rhonchi - Cardiovascular Cardiovascular exam: Present: RRR, +S1, +S2. Absent: diastolic murmur, gallop, rubs, systolic murmur - GI/Abdominal GI/Abdominal exam: Present: normal bowel sounds, soft, no peritoneal signs. Absent: distended, hepatomegaly, tenderness - Extremities Exam Extremities exam: Present: normal inspection, warm, radial pulses palpable and symmetrical. Absent: calf tenderness, cyanotic, pedal edema, tenderness - Neurological Exam Neurological exam: Present: alert, oriented X3, no focal deficits. Absent: facial droop, speech deficit - Skin Skin exam: Present: dry, intact, normal color, warm. Absent: rash Internal Medicine: Result - Labs CBC & Chem 7: 11/23/17 04:22 11/23/17 04:22 Labs: Short CBC 11/23/17 Range/Units 04:22 WBC 6.0 (4.3-11.1) K/mcL Hgb 12.4 (11.5-15.4) g/dL Hct 38.0 (35.3-44.9) % Plt Count 292 (140-400) K/mcL Neutrophils # 5.2 (1.6-8.9) K/mcL BMP 11/23/17 04:22 Sodium 138 Potassium 4.2 Chloride 113 H Carbon Dioxide 18 L BUN 9 Creatinine 0.84 Glucose 161 H Calcium 9.0 Consult Discharge Plan - Plan Referrals: Daniel Whitney Jr, MD [Primary Care Provider] -
[2017-11-23] MEDS: tiZANidine 4 MG TABLET PO PRN (20:30)
[2017-11-23] MEDS ORDERED: Insulin LISPRO 300 UNITS/3 ML VIAL SQ SCH (21:00)
[2017-11-23] MEDS ORDERED: Loratadine 10 MG TABLET PO SCH (21:00)
[2017-11-23] MEDS ORDERED: traZODone 50 MG TABLET PO SCH (21:00)
[2017-11-24] MEDS: methylPREDNISolone 125 MG/2 ML VIAL IVP SCH ×2 (00:39→08:52)
[2017-11-24] MEDS: *HR* Heparin 5,000 UNIT/ML VIAL SQ SCH ×2 (00:39→08:52)
[2017-11-24] MEDS: Budesonide/Formoterol 80/4.5 MDI IH SCH (01:48)
[2017-11-24] MEDS: Albuterol 2.5 MG/3 ML NEBULIZER IH SCH ×3 (04:26→15:37)
[2017-11-24 04:41] LABS: BUN/Creatinine Ratio 14 (6-26); Blood Urea Nitrogen 12 mg/dL (6-20); Calcium 9.2 mg/dL (8.6-10.3); Carbon Dioxide 20 mEq/L (23-29); Chloride 111 mEq/L (98-107); Glucose 173 mg/dL (70-105); Osmolality,Calculated 292 (280-300); Potassium 4.6 mEq/L (3.5-5.1); Sodium 139 mEq/L (136-145); eGFR For African Americans > 60 (> 60); eGFR For Non-African Americans > 60 (> 60)
[2017-11-24] MEDS: *HR* HYDROcodone/Acet 5/325 mg TABLET PO PRN ×2 (06:13→14:08)
[2017-11-24] MEDS: Fluticasone Propionate Nasal 50 MCG/SPRAY BOTTLE NS SCH (08:51)
[2017-11-24] MEDS: Insulin LISPRO 300 UNITS/3 ML VIAL SQ SCH ×2 (08:51→12:52)
[2017-11-24] MEDS: Indomethacin 25 MG CAPSULE PO SCH ×2 (08:52→15:50)
[2017-11-24] MEDS: BuPROPion XL (24 HR) 150 MG TABLET PO SCH (08:52)
[2017-11-24] MEDS: Topiramate 25 MG TABLET PO SCH (08:52)
[2017-11-24] MEDS: Prenatal Vit/FA 1 EACH TABLET PO SCH (08:52)
[2017-11-24] MEDS: FLUoxetine 20 MG CAPSULE PO SCH (08:53)
[2017-11-24] MEDS: tiZANidine 4 MG TABLET PO PRN ×2 (08:53→14:07)
[2017-11-24] MEDS: Pregabalin 75 MG CAPSULE PO SCH (08:53)
[2017-11-24] MEDS: Cholecalciferol (D-3) 1,000 UNIT TABLET PO SCH (08:53)
[2017-11-24] MEDS: Ascorbic Acid 500 MG TABLET PO SCH (08:53)
[2017-11-24] MEDS: clonazePAM 1 MG TABLET PO PRN (08:53)
[2017-11-24] MEDS ORDERED: Budesonide/Formoterol 80/4.5 MDI IH SCH (10:00)
--- NOTE | 2017-11-24 15:45 | Discharge Summary ---
- NOTES TO OUTPATIENT PROVIDER Notes to Outpatient Provider: Pt will need to follow up for medication refills and for reevaluation of Crohn's flare. Pt was given Medrol taper since she is intolerant to Prednisone. Date of Encounter: 11/24/17 Time of Encounter: 12:15 - Discharge Diagnosis (1) Dehydration Priority: Primary Status: Resolved Comments: Patient received IV fluid hydration, she is also able to tolerate by mouth food and fluids without nausea and vomiting. Labs are stable, vitals are within normal limits. Encouraged continued adequate by mouth intake. (2) Exacerbation of Crohn's disease Priority: Primary Status: Acute Comments: Patient states that she feels better, cramping has improved as has frequency of diarrhea. Patient will be sent home on a Medrol taper, dosage verified with pharmacy. We were unable to obtain a stool/GI panel due to patient not having liquid stool. Patient has follow-up appointment with Dr. Willingham on 11/29/17. Qualifiers: Digestive disease complication type: without complication Qualified Code(s) : K50.90 - Crohn's disease, unspecified, without complications (3) DVT prophylaxis Priority: Secondary Status: Acute Comments: Heparin SQ (4) Depression Priority: Secondary Status: Acute Comments: Chronic continue home medications. Qualifiers: Depression Type: major depressive disorder Major depression recurrence: recurrent Active/Remission status: currently active Major depression episode severity: unspecified Qualified Code(s): F33.9 - Major depressive disorder, recurrent, unspecified (5) Asthma Priority: Secondary Status: Chronic Comments: No acute exacerbation. Lungs are clear throughout, she is in no distress and not requiring supplemental oxygen or bronchodilators. Continue home medications Qualifiers: Asthma severity: mild Asthma persistence: intermittent Asthma complication type: uncomplicated Qualified Code(s): J45.20 - Mild intermittent asthma, uncomplicated (6) Diarrhea Priority: Secondary Status: Chronic Comments: Plan as above. Resolved Qualifiers: Diarrhea type: unspecified type Qualified Code(s): R19.7 - Diarrhea, unspecified (7) Essential hypertension Priority: Secondary Status: Chronic Comments: Chronic. Continue home medications. (8) Morbid obesity with BMI of 50.0-59.9, adult Priority: Secondary Status: Chronic Comments: Chronic. Lifestyle modifications. (9) JUAN on CPAP Priority: Secondary Status: Chronic Comments: Continue CPAP at night. Hospital course: Ms. Flanagan is a 42 year old female with past medical history of depression, asthma, hypertension, obesity, obstructive sleep apnea, recent diagnosis of Crohn's. Patient reports that she is unable to get her medications due to insurance not covering it anymore. She reports frequent flares due to this. She has been treated with Solu-Medrol IV and has reported relief. She reports no more liquid stools, they are soft. Cramping has improved. She is able to tolerate by mouth food and fluid. She states she is unable to take prednisone at home due to "it makes me blow up." She will be sent home with Medrol taper, dosages verified with pharmacy. Patient has a follow-up appointment with her GI physician on Tuesday, in 5 days. Labs are stable and within normal limits. Patient is appropriate for discharge. Discharge discussed with: patient - Time Spent with Patient Total time spent providing and/or coordinating discharge services: Less than 30 minutes - Discharge Medications Prescriptions: MethylPREDNISolone [Medrol] 16 mg PO DAILY #8 tablet methylPREDNISolone [Medrol] 2 mg PO DAILY #6 tablet Home Medications: Albuterol Neb [Proventil Neb] 2.5 mg IH QID 09/09/15 [History] Albuterol Sulfate [Albuterol Inhaler] 2 puff IH Q4HR PRN 09/09/15 [History] Cetirizine HCl [Zyrtec] 10 mg PO HS 09/09/15 [History] Diltiazem HCl [Diltiazem 24Hr Cd] 120 mg PO QPM 09/09/15 [History] Docusate [Colace] 100 mg PO QPM 09/09/15 [History] FLUoxetine HCl [Prozac] 80 mg PO QAM 09/09/15 [History] Ferrous Sulfate 325 mg PO QPM 09/09/15 [History] Fluticasone/Salmeterol [Advair Hfa 115-21 Mcg Inhaler] 2 puff IH BID 09/09/15 [ History] Furosemide [Lasix] 20 mg PO QAM PRN 09/09/15 [History] Montelukast [Singulair] 10 mg PO QPM 09/09/15 [History] clonazePAM [Klonopin] 1 mg PO TID PRN 09/09/15 [History] valACYclovir [Valtrex] 500 mg PO HS 09/09/15 [History] Topiramate [Topamax] 50 mg PO BID 02/14/16 [History] l-Norgest/E.estradiol-E.estrad [Ashlyna 0.15-0.03-0.01 mg Tab] 1 tab PO DAILY [History] Ascorbic Acid [Vitamin C] 500 mg PO DAILY 11/14/16 [History] Cholecalciferol (Vitamin D3) [Vitamin D3] 2,000 unit PO DAILY 11/14/16 [History] Metformin HCl [Metformin HCl ER] 1,000 mg PO DAILY 11/14/16 [History] Pregabalin [Lyrica] 150 mg PO BID 11/14/16 [History] BuPROPion XL (24 HR) [Wellbutrin Xl] 450 mg PO DAILY 04/18/17 [History] EPINEPHrine [Epipen] 0.3 mg IM ONCE PRN 04/18/17 [History] Tizanidine HCl [Zanaflex] 4 mg PO TID PRN 04/18/17 [History] Amitriptyline [Elavil] 25 mg PO HS 05/12/17 [History] Trazodone HCl 50 - 100 mg PO HS 05/12/17 [History] hydrOXYzine pamoate [HydrOXYzine Pamoate] 25 mg PO TID PRN 05/12/17 [History] Calcium Carbonate [Tums] 1,000 mg PO TID PRN 05/15/17 [Rx] Fluticasone Propionate Nasal [Flonase] 50 mcg NS BID 06/02/17 [History] SUMAtriptan Succinate [Imitrex] 100 mg PO DAILY PRN 06/02/17 [History] Acetaminophen [Tylenol] 650 mg PO Q6HR PRN tablet 06/06/17 [Rx] Adalimumab [Humira] 40 mg SQ QWEEK 09/20/17 [History] HYDROcodone/Acet 5/325 mg [[place] 5-325 mg] 1 tab PO Q6H PRN 11/22/17 [History] Indomethacin 50 mg PO TID 11/22/17 [History] Omeprazole [PriLOSEC] 40 mg PO BID 11/22/17 [History] Pantoprazole Sodium [Protonix] 40 mg PO DAILY 11/22/17 [History] Syq050/Iron Fumarate/FA/Dss [ 19 Tablet] 1 each PO DAILY 11/22/17 [ History] Prochlorperazine Maleate [Compazine] 5 mg PO TID PRN 11/22/17 [History] MethylPREDNISolone [Medrol] 16 mg PO DAILY #8 tablet 11/24/17 [Rx] methylPREDNISolone [Medrol] 2 mg PO DAILY #6 tablet 11/30/17 [Rx] Allergies/Adverse Reactions: 3 Allergy/AdvReac Type Severity Reaction Status Date / Time acetaminophen [From Percocet] Allergy Confusion Verified 11/22/17 19:39 gabapentin Allergy Swelling Verified 11/22/17 11:37 of Lip/Tongue/Throat Oxycodone [From Percocet] Allergy Confusion Verified 11/22/17 19:39 prednisone Allergy Difficulty Verified 11/22/17 11:37 Breathing ziprasidone [From Geodon] AdvReac Agitated Verified 11/22/17 11:37 Date of admission: 11/22/17 21:22 Primary care physician: Daniel Whitney Jr, MD Discharging clinician: Meliza Chandra Anticipated date of discharge: 11/24/17 - Constitutional Vitals: Temp Pulse Resp BP Pulse Ox 98.6 F 92 16 170/84 94 11/24/17 14:42 11/24/17 14:42 11/24/17 14:42 11/24/17 14:42 11/24/17 14:42 General appearance: Present: cooperative, A&O X 3, morbidly obese, no acute distress, answers questions appropriately - Head Head exam: Present: atraumatic, normal inspection, normocephalic - Eye Eye exam: Present: normal appearance, conjuntiva pink, sclera anicteric - Neck Neck exam general surgery: Present: supple, trachea midline. Absent: lymphadenopathy - Respiratory Respiratory exam: Present: CTAB. Absent: accessory muscle use, chest wall tenderness, rales, respiratory distress, rhonchi, wheezes - Cardiovascular Cardiovascular exam: Present: RRR, +S1, +S2. Absent: diastolic murmur, gallop, rubs, systolic murmur - GI/Abdominal GI/Abdominal exam: Present: normal bowel sounds, soft. Absent: distended, hepatomegaly, tenderness - Extremities Exam Extremities exam: Present: normal capillary refill, normal inspection, warm, radial pulses palpable and symmetrical. Absent: calf tenderness, cyanotic, pedal edema - Neurological Exam Neurological exam: Present: alert, oriented X3, no focal deficits. Absent: facial droop, speech deficit - Skin Skin exam: Present: dry, intact, normal color, warm. Absent: rash - Patient Status Disposition: Home, Self-Care Condition: Good Functional capacity at discharge: independent ambulation Overall status at discharge: patient is progressing back to baseline - Discharge Instructions Follow Up With: Daniel Whitney Jr, MD [Primary Care Provider] - Additional Instructions: Take your Medrol as directed. You will have 2 prescriptions for different doses , get them filled at separate times so that you don't get them confused. Return to the ER as needed for any other problems or concerns. Follow up with Dr. Willingham on Tuesday as scheduled. Take your other normal medications as directed. Return to your normal diet and activities as tolerated. - Diet and Activity Activity: increase activity as tolerated Diet: diabetic diet, low fat, low cholesterol
[2017-11-24] MEDS: SUMAtriptan succinate 50 MG TABLET PO PRN (15:50)
[2017-11-24] MEDS: Diltiazem CD (24hr) 120 MG CAPSULE PO SCH (15:51)
[2017-11-24 16:28] VITALS: BP 170/84
== END 2017-11-24 18:05 | disposition home or self-care (01) | DRG 245 ==
LOC: EMEROO 11:35 → 3BNU 11:35
PROVIDERS: ADMIT Student in an Organized Health Care Education/Training Program; ATTEND Registered Nurse

== ENCOUNTER 2022-03-10 06:19 | Inpatient (IN) ==
[2022-03-10] MEDS ORDERED: *HR* OxyCODONE Immed Rel 5 MG TABLET PO ONE (06:30)
[2022-03-10] MEDS ORDERED: Acetaminophen IV 1,000 MG/100 ML BAG IVPB ONE (06:30)
[2022-03-10] MEDS ORDERED: Famotidine 20 MG/2 ML VIAL IVP ONE (06:30)
[2022-03-10] MEDS ORDERED: Albuterol 2.5 MG/3 ML NEBULIZER IH ONE (06:30)
[2022-03-10] MEDS ORDERED: CeFAZolin Syr 2,000MG/20 ML 2,000 MG/20 ML SYRINGE IVPB ONE (06:59)
[2022-03-10] MEDS ORDERED: Ringers Solution, Lactated 1,000 ML IVC SCH ×2 (07:00→13:56)
[2022-03-10] MEDS ORDERED: *HR* FentaNYL (PF) 100 MCG/2 ML VIAL ONE (07:20)
[2022-03-10] MEDS ORDERED: Ondansetron 4 MG/2 ML VIAL ONE (07:21)
[2022-03-10] MEDS ORDERED: *HR* Midazolam HCl 2 MG/2 ML VIAL ONE (07:21)
[2022-03-10] MEDS ORDERED: Lidocaine HCL 4 ML Topical Solution (Laryng-O-Jet Kit Sterile Pak) TP ONE (07:21)
[2022-03-10] MEDS ORDERED: *HR* Succinylcholine 200 MG/10 ML VIAL IVP ONE (07:21)
[2022-03-10] MEDS ORDERED: Lidocaine -MPF 2% 5 ML VIAL ONE ×2 (07:21→09:04)
[2022-03-10] MEDS ORDERED: *HR* HYDROmorphone PF 0.5 MG/0.5 ML SYRINGE IVP PRN (07:22)
[2022-03-10] MEDS ORDERED: Ondansetron 4 MG/2 ML VIAL IVP PRN (07:22)
[2022-03-10] MEDS ORDERED: *HR* Phenylephrine 10 MG/ML VIAL ONE (07:24)
[2022-03-10] MEDS ORDERED: *HR* Remifentanil 1 MG VIAL IVP ONE ×3 (07:36→10:36)
[2022-03-10] MEDS ORDERED: Vancomycin 1,000 MG VIAL ONE (09:41)
[2022-03-10] MEDS ORDERED: *HR* HYDROMORPHONE 2 MG/ML VIAL ONE (10:27)
[2022-03-10] MEDS ORDERED: Ketamine HCL *QUVA* 50mg (1mL) SYRINGE ONE (10:28)
[2022-03-10] MEDS: *HR* FentaNYL (PF) 100 MCG/2 ML VIAL IVP PRN ×2 (12:12→12:17)
[2022-03-10] MEDS ORDERED: Naloxone 0.4 MG/ML INJ IVP PRN (13:56)
[2022-03-10] MEDS: CeFAZolin 2 GM/120 ML BAG IVPB SCH ×2 (17:10→23:41)
[2022-03-10] MEDS: *HR* HYDROcodone/Acet 5/325 mg TABLET PO PRN ×2 (17:22→22:08)
[2022-03-10] MEDS: diazePAM 10 MG TABLET PO PRN (22:08)
[2022-03-11] MEDS: *HR* HYDROcodone/Acet 5/325 mg TABLET PO PRN ×2 (02:18→09:13)
[2022-03-11] MEDS: Ondansetron 4 MG/2 ML VIAL IVP PRN ×2 (02:44→09:13)
[2022-03-11] MEDS: diazePAM 10 MG TABLET PO PRN (12:45)
[2022-03-11] MEDS ORDERED: Cyprohepatdine 4 MG TABLET PO PRN (15:32)
[2022-03-11] MEDS ORDERED: Furosemide 20 MG TABLET PO PRN (15:32)
[2022-03-11] MEDS ORDERED: Albuterol 2.5 MG/3 ML NEBULIZER IH PRN (15:32)
[2022-03-11] MEDS ORDERED: Rizatriptan Benzoate [Maxalt Mlt] 10 MG Tab.Rapdis PO PRN (15:53)
[2022-03-11] MEDS: *HR* HYDROcodone/Acet 10/325 mg TABLET PO PRN (19:01)
[2022-03-11] MEDS ORDERED: ERENUMAB AOOE SUBQ SCH (21:00)
[2022-03-11] MEDS: QUEtiapine Fumarate 100 MG TABLET PO SCH (21:18)
[2022-03-11] MEDS: carBAMazepine 200 MG TABLET PO SCH (21:19)
[2022-03-11] MEDS: hydrOXYzine pamoate 25 MG CAPSULE PO SCH (21:19)
[2022-03-11] MEDS: Loratadine 10 MG TABLET PO SCH (21:19)
[2022-03-11] MEDS: tiZANidine 4 MG TABLET PO PRN (21:29)
[2022-03-11] MEDS: clonazePAM 1 MG TABLET PO PRN (21:31)
[2022-03-12] MEDS: *HR* HYDROcodone/Acet 10/325 mg TABLET PO PRN ×5 (02:16→21:04)
[2022-03-12] MEDS: diazePAM 10 MG TABLET PO PRN (02:16)
[2022-03-12] MEDS: Ondansetron 4 MG/2 ML VIAL IVP PRN (02:17)
[2022-03-12] MEDS: Folic Acid 1 MG TABLET PO SCH (08:48)
[2022-03-12] MEDS: DilTIAZem CD (24hr) 120 MG CAP.ER.24H PO SCH (08:48)
[2022-03-12] MEDS: FLUoxetine 20 MG CAPSULE PO SCH (08:49)
[2022-03-12] MEDS: BuPROPion XL (24 HR) 150 MG TABLET PO SCH (08:49)
[2022-03-12] MEDS: hydrOXYzine pamoate 25 MG CAPSULE PO SCH ×3 (08:49→20:53)
[2022-03-12] MEDS: clonazePAM 1 MG TABLET PO PRN ×2 (08:49→17:08)
[2022-03-12] MEDS: carBAMazepine 200 MG TABLET PO SCH ×2 (08:49→20:54)
[2022-03-12] MEDS: lisinopriL 20 MG TABLET PO SCH (08:49)
[2022-03-12] MEDS: (Linaclotide [Linzess] 290 MCG Capsule) PO SCH (08:54)
[2022-03-12] MEDS: (Cariprazine Hcl [Vraylar] 3 MG Capsule) PO SCH (08:54)
[2022-03-12] MEDS: E ESTRADIOL E ESTRAD PO SCH (08:54)
[2022-03-12] MEDS: Fluticasone Propionate Nasal 50 MCG/SPRAY BOTTLE NS SCH (08:54)
[2022-03-12] MEDS: NORGEST PO SCH (08:54)
[2022-03-12] MEDS ORDERED: ERENUMAB AOOE SUBQ SCH (11:00)
[2022-03-12] MEDS ORDERED: SEMAGLUTIDE 4 MG/3 ML SUBQ SCH (11:00)
[2022-03-12] MEDS: tiZANidine 4 MG TABLET PO PRN ×2 (14:31→20:53)
[2022-03-12] MEDS: Topiramate 100 MG TABLET PO SCH (20:53)
[2022-03-12] MEDS: QUEtiapine Fumarate 100 MG TABLET PO SCH (20:53)
[2022-03-12] MEDS: Loratadine 10 MG TABLET PO SCH (20:53)
[2022-03-12] MEDS: SUMAtriptan succinate 50 MG TABLET PO PRN (22:17)
[2022-03-13] MEDS: *HR* HYDROcodone/Acet 10/325 mg TABLET PO PRN ×3 (01:54→11:38)
[2022-03-13] MEDS: Ondansetron 4 MG/2 ML VIAL IVP PRN ×3 (01:55→21:41)
[2022-03-13] MEDS: BuPROPion XL (24 HR) 150 MG TABLET PO SCH (09:46)
[2022-03-13] MEDS: lisinopriL 20 MG TABLET PO SCH (09:46)
[2022-03-13] MEDS: hydrOXYzine pamoate 25 MG CAPSULE PO SCH ×3 (09:46→21:40)
[2022-03-13] MEDS: Folic Acid 1 MG TABLET PO SCH (09:47)
[2022-03-13] MEDS: carBAMazepine 200 MG TABLET PO SCH ×2 (09:47→21:41)
[2022-03-13] MEDS: DilTIAZem CD (24hr) 120 MG CAP.ER.24H PO SCH (09:47)
[2022-03-13] MEDS: FLUoxetine 20 MG CAPSULE PO SCH (09:47)
[2022-03-13] MEDS: NORGEST PO SCH (09:49)
[2022-03-13] MEDS: (Linaclotide [Linzess] 290 MCG Capsule) PO SCH (09:49)
[2022-03-13] MEDS: (Cariprazine Hcl [Vraylar] 3 MG Capsule) PO SCH (09:49)
[2022-03-13] MEDS: E ESTRADIOL E ESTRAD PO SCH (09:49)
[2022-03-13] MEDS: Topiramate 100 MG TABLET PO SCH ×2 (10:01→21:40)
[2022-03-13] MEDS: tiZANidine 4 MG TABLET PO PRN (11:39)
[2022-03-13] MEDS: Fluticasone Propionate Nasal 50 MCG/SPRAY BOTTLE NS SCH (13:31)
[2022-03-13] MEDS: SUMAtriptan succinate 50 MG TABLET PO PRN (13:35)
[2022-03-13] MEDS: *HR* OxyCODONE Immed Rel 5 MG TABLET PO PRN ×3 (13:39→21:41)
[2022-03-13] MEDS: QUEtiapine Fumarate 100 MG TABLET PO SCH (21:39)
[2022-03-13] MEDS: Loratadine 10 MG TABLET PO SCH (21:40)
[2022-03-14] MEDS: *HR* OxyCODONE Immed Rel 5 MG TABLET PO PRN ×3 (06:01→17:02)
[2022-03-14] MEDS: SUMAtriptan succinate 50 MG TABLET PO PRN (06:23)
[2022-03-14] MEDS: FLUoxetine 20 MG CAPSULE PO SCH (08:59)
[2022-03-14] MEDS: Topiramate 100 MG TABLET PO SCH (08:59)
[2022-03-14] MEDS: BuPROPion XL (24 HR) 150 MG TABLET PO SCH (08:59)
[2022-03-14] MEDS: lisinopriL 20 MG TABLET PO SCH (09:00)
[2022-03-14] MEDS: Folic Acid 1 MG TABLET PO SCH (09:00)
[2022-03-14] MEDS: (Cariprazine Hcl [Vraylar] 3 MG Capsule) PO SCH (09:01)
[2022-03-14] MEDS: NORGEST PO SCH (09:01)
[2022-03-14] MEDS: Fluticasone Propionate Nasal 50 MCG/SPRAY BOTTLE NS SCH (09:01)
[2022-03-14] MEDS: E ESTRADIOL E ESTRAD PO SCH (09:01)
[2022-03-14] MEDS: (Linaclotide [Linzess] 290 MCG Capsule) PO SCH (09:01)
[2022-03-14] MEDS: carBAMazepine 200 MG TABLET PO SCH (09:02)
[2022-03-14] MEDS: hydrOXYzine pamoate 25 MG CAPSULE PO SCH ×2 (09:02→17:10)
[2022-03-14] MEDS: DilTIAZem CD (24hr) 120 MG CAP.ER.24H PO SCH (09:03)
[2022-03-14] MEDS: tiZANidine 4 MG TABLET PO PRN (09:30)
[2022-03-14 11:46] VITALS: BP 143/74; PULSE 68; TEMP 98; O2SAT 97
[2022-03-14] MEDS ORDERED: Prochlorperazine 10 MG/2 ML VIAL IVP PRN (12:26)
[2022-03-14] MEDS ORDERED: Ketorolac 30 MG/ML VIAL IVP ONE (12:27)
[2022-03-18] MEDS ORDERED: Semaglutide [Ozempic] 2 MG/0.75 ML Pen.Injctr SUBQ SCH (09:00)
== END 2022-03-14 18:20 | disposition home health service (06) | DRG 460 ==
LOC: SDCAOSI 06:19 → 4WAOSI 13:26
PROVIDERS: ADMIT Orthopaedic Surgery Orthopaedic Surgery of the Spine; ATTEND Orthopaedic Surgery Orthopaedic Surgery of the Spine